=== PATIENT | female | born 1945 | race Caucasian/White ===

== ENCOUNTER 2017-12-13 11:20 | Emergency (ER) | payer MEDICARE, OTHER ==
[~2017-12-13] VITALS: Ht 167.6 cm; Wt 92.1 kg
[2017-12-13] MEDS ORDERED: METO25 (11:44)
[2017-12-13] MEDS ORDERED: ELIQUIS5 MG PO (11:44)
[2017-12-13] MEDS ORDERED: ATOR20 PO (11:44)
[2017-12-13] MEDS ORDERED: BASAGLAR K100 UNIT/1 SQ (12:07)
[2017-12-13] MEDS ORDERED: BASAGLAR K100 UNIT/1 SC (13:15)
[2017-12-13] MEDS ORDERED: FURO20 PO (13:15)
[2017-12-13] MEDS ORDERED: LISI20 PO (13:15)
== END 2017-12-13 13:44 | disposition home or self-care (01) ==
LOC: ER 11:20
DX: I50.9 Heart failure, unspecified (principal); I48.91 Unspecified atrial fibrillation; Z88.0 Allergy status to penicillin; Z88.2 Allergy status to sulfonamides; Z91.048 Other nonmedicinal substance allergy status; Z79.899 Other long term (current) drug therapy; Z79.4 Long term (current) use of insulin; M79.89 Other specified soft tissue disorders; Z86.718 Personal history of other venous thrombosis and embolism
CPT/HCPCS: 36415; 71046; 93005; 93010; 93971; 99284-25

== ENCOUNTER 2017-12-19 08:25 | Emergency (ER) | payer MEDICARE, OTHER ==
[~2017-12-19] VITALS: Ht 167.6 cm; Wt 92.1 kg
[~2017-12-19 08:25] MED LIST: ATOR20 PO; BASAGLAR K100 UNIT/1 SC; BASAGLAR K100 UNIT/1 SQ; ELIQUIS5 MG PO; FURO20 PO; LISI20 PO; METO25
[2017-12-19 09:31] LABS: Calcium, Ionized (POC) 1.17 mmol/L (1.10-1.46); Chloride (POC) 105 mmol/L (98-108); Creatinine (POC) 1.4 mg/dL (0.6-1.0); Glucose (ISTAT POC) 216 mg/dL (70-99); Hemoglobin (POC) 12.6 g/dL (12.0-16.0); Potassium (POC) 3.9 mmol/L (3.5-5.5); Sodium (POC) 143 mmol/L (135-148); Total CO2 (POC) 25 mmol/L (21-32)
[2017-12-19] MEDS ORDERED: BASAGLAR K100 UNIT/1 SC (09:45)
== END 2017-12-19 10:10 | disposition home or self-care (01) ==
LOC: ER 08:25
PROVIDERS: Physician Assistant
DX: Z76.0 Encounter for issue of repeat prescription (principal); Z79.4 Long term (current) use of insulin; Z79.899 Other long term (current) drug therapy
CPT/HCPCS: 80047; 82947; 85014; 99281

== ENCOUNTER 2017-12-21 09:47 | Emergency (ER) | payer MEDICARE, OTHER ==
[~2017-12-21] VITALS: Ht 167.6 cm; Wt 92.1 kg
[2017-12-21] MEDS ORDERED: IBUP600 PO (10:30)
== END 2017-12-21 11:02 | disposition home or self-care (01) ==
LOC: ER 09:47
DX: M25.562 Pain in left knee (principal); M25.561 Pain in right knee; G89.29 Other chronic pain; I48.2 Chronic atrial fibrillation; E11.9 Type 2 diabetes mellitus without complications; Z59.0 Homelessness; Z88.0 Allergy status to penicillin; Z88.2 Allergy status to sulfonamides; Z88.8 Allergy status to other drugs, medicaments and biological substances; Z79.899 Other long term (current) drug therapy; Z79.4 Long term (current) use of insulin
CPT/HCPCS: 93005; 93010; 96372; 99283-25; J1885

== ENCOUNTER 2018-01-02 09:13 | Emergency (ER) | payer MEDICARE, OTHER ==
[~2018-01-02] VITALS: Ht 167.6 cm; Wt 94.3 kg
[~2018-01-02 09:13] MED LIST changes: +IBUP600 PO
== END 2018-01-02 11:40 | disposition home or self-care (01) ==
LOC: ER 09:13
DX: M25.561 Pain in right knee (principal); M25.562 Pain in left knee; E11.9 Type 2 diabetes mellitus without complications; I48.91 Unspecified atrial fibrillation; Z88.0 Allergy status to penicillin; Z88.2 Allergy status to sulfonamides; Z88.8 Allergy status to other drugs, medicaments and biological substances; Z79.899 Other long term (current) drug therapy; Z79.4 Long term (current) use of insulin; W19.XXXA Unspecified fall, initial encounter
CPT/HCPCS: 73562-RT; 99283-25

== ENCOUNTER 2018-01-15 14:18 | Emergency (ER) | payer MEDICARE, OTHER ==
[~2018-01-15] VITALS: Ht 172.7 cm; Wt 91.6 kg
[~2018-01-15 14:18] MED LIST changes: -METO25; +METO25 PO
== END 2018-01-15 15:42 | disposition home or self-care (01) ==
LOC: ER 14:18
DX: S46.911A Strain of unspecified muscle, fascia and tendon at shoulder and upper arm level, right arm, initial encounter (principal); R51 Headache; I48.91 Unspecified atrial fibrillation; E11.9 Type 2 diabetes mellitus without complications; Z88.0 Allergy status to penicillin; Z88.2 Allergy status to sulfonamides; Z88.8 Allergy status to other drugs, medicaments and biological substances; Z79.899 Other long term (current) drug therapy; Z79.4 Long term (current) use of insulin; W19.XXXA Unspecified fall, initial encounter
CPT/HCPCS: 70450; 73030; 99284-25

== ENCOUNTER → 2018-01-17 | Outpatient (CLI) | payer MEDICARE, OTHER | LOC: LAB 09:40 → LAB SHORT 09:40 | DX: R35.0 Frequency of micturition (principal) | CPT/HCPCS: 87086 ==

== ENCOUNTER 2018-01-19 17:57 | Emergency (ER) | payer MEDICARE, OTHER ==
[~2018-01-19] VITALS: Ht 167.6 cm; Wt 91.6 kg
[2018-01-19 18:42] LABS: Hematocrit 39.4 % (33.0-51.0); Hemoglobin 12.8 g/dL (11.5-16.0); Mean Corpuscular HGB Conc 32.5 g/dL (31.5-36.5); Mean Corpuscular Volume 89 fL (80-100); Mean Platelet Volume 10.7 fL (9.1-12.4); Platelet Count 269 K/mm3 (150-400); RDW Coefficient Variation 14.3 % (11.7-14.2); RDW Standard Deviation 47.2 fL (35.1-46.3); Red Blood Cell Count 4.41 M/mm3 (3.80-5.20)
[2018-01-19 18:56] LABS: Bun/Creatinine Ratio 15.3 (12.0-20.0); Calcium, Blood 8.7 mg/dL (8.5-10.1); Creatinine, Blood 1.5 mg/dL (0.40-1.00); Potassium, Blood 4.2 mmol/L (3.5-5.5)
[2018-01-19 19:05] LABS: Calcium, Ionized (POC) 1.17 mmol/L (1.10-1.46); Chloride (POC) 104 mmol/L (98-108); Creatinine (POC) 1.5 mg/dL (0.6-1.0); Glucose (ISTAT POC) 160 mg/dL (70-99); Hemoglobin (POC) 13.6 g/dL (12.0-16.0); Potassium (POC) 4.1 mmol/L (3.5-5.5); Sodium (POC) 143 mmol/L (135-148); Total CO2 (POC) 25 mmol/L (21-32)
== END 2018-01-19 19:19 | disposition home or self-care (01) ==
LOC: ER 17:57
PROVIDERS: Emergency Medicine
DX: E11.65 Type 2 diabetes mellitus with hyperglycemia (principal); I10 Essential (primary) hypertension; Z91.14 Patient's other noncompliance with medication regimen; I48.91 Unspecified atrial fibrillation; Z86.73 Personal history of transient ischemic attack (TIA), and cerebral infarction without residual deficits; Z79.4 Long term (current) use of insulin; Z79.899 Other long term (current) drug therapy; Z79.01 Long term (current) use of anticoagulants
CPT/HCPCS: 36415; 80047; 80048; 85014; 85027; 96374; 99282-25; J0360

== ENCOUNTER 2018-02-01 09:02 | Emergency (ER) | payer MEDICARE, OTHER ==
[~2018-02-01] VITALS: Ht 165.1 cm; Wt 91.6 kg
[2018-02-01 10:25] LABS: BASOPHILS ABSOLUTE AUTO 0.09 K/mm3 (0.00-0.23); BASOPHILS PERCENT AUTO 1 % (0-2); EOSINOPHILS ABSOLUTE AUTO 0.48 K/mm3 (0.00-0.68); EOSINOPHILS PERCENT AUTO 4 % (0-6); Hematocrit 43.3 % (33.0-51.0); Hemoglobin 13.5 g/dL (11.5-16.0); IMMATURE GRAN ABSOLUTE AUTO 0.05 K/mm3 (0.00-0.10); IMMATURE GRAN PERCENT AUTO 0 % (0-1); LYMPHOCYTES ABSOLUTE AUTO 1.05 K/mm3 (0.84-5.20); LYMPHOCYTES PERCENT AUTO 8 % (21-46); MONOCYTES ABSOLUTE AUTO 0.85 K/mm3 (0.16-1.47); MONOCYTES PERCENT AUTO 6 % (4-13); Mean Corpuscular HGB 28.2 pg (26.0-34.0); Mean Corpuscular HGB Conc 31.2 g/dL (31.5-36.5); Mean Corpuscular Volume 90 fL (80-100); Mean Platelet Volume 10.5 fL (9.1-12.4); NEUTROPHILS ABSOLUTE AUTO 11.28 K/mm3 (1.96-9.15); NEUTROPHILS PERCENT AUTO 82 % (41-73); Platelet Count 266 K/mm3 (150-400); RDW Coefficient Variation 14.3 % (11.7-14.2); RDW Standard Deviation 47.5 fL (35.1-46.3); Red Blood Cell Count 4.79 M/mm3 (3.80-5.20)
[2018-02-01 10:40] LABS: International Normalized Ratio 0.99; Prothrombin Time Results 10.2 Sec (9.7-11.5)
[2018-02-01 10:47] LABS: Albumin, Blood 3.3 g/dL (3.4-5.0); Albumin/Globulin Ratio 0.8 (0.8-1.8); Bilirubin, Total 1.1 mg/dL (0.1-1.0); Bun/Creatinine Ratio 20.5 (12.0-20.0); Calcium, Blood 8.7 mg/dL (8.5-10.1); Creatinine, Blood 1.27 mg/dL (0.40-1.00); Globulin, Blood 3.9 g/dL (2.2-4.0); Total Protein, Blood 7.2 g/dL (6.4-8.2); Troponin I 0.025 ng/mL (0.000-0.040)
[2018-02-01 11:39] LABS: Source, Urine Clean Catch
[2018-02-01 11:55] LABS: Bilirubin, Urine Neg (Neg); Blood, Urine 1+ (Neg); Glucose Qualitative, Urine 1+ (Neg); Ketones, Urine Neg (Neg); Leukocyte Esterase, Urine Neg (Neg); Nitrite, Urine Neg (Neg); Protein, Urine 4+ (Neg); Specific Gravity, Urine 1.025 (1.003-1.022); Urobilinogen, Urine NORM (Normal)
[2018-02-01 12:10] LABS: Appearance, Urine Clear (Clear); Color, Urine Yellow (P-Yellow)
[2018-02-01 12:11] LABS: Bacteria Not Seen /hpf; Red Blood Cells, Urine 0-2 /hpf (0-2); Squamous Epithelial Cells Few /hpf (Few); White Blood Cells, Urine Not Seen /hpf (0-5)
[2018-02-01 12:54] LABS: Influenza A Negative (NEGATIVE); Influenza B Negative (NEGATIVE)
[2018-02-01] MEDS ORDERED: Aerochamber1 EACH INH (13:04)
[2018-02-01] MEDS ORDERED: ALBU90OI INH (13:04)
== END 2018-02-01 14:11 | disposition home or self-care (01) ==
LOC: ER 09:02
PROVIDERS: Emergency Medicine; Physician Assistant
DX: J20.9 Acute bronchitis, unspecified (principal); E11.9 Type 2 diabetes mellitus without complications; I48.91 Unspecified atrial fibrillation; Z79.899 Other long term (current) drug therapy; Z79.4 Long term (current) use of insulin; Z79.01 Long term (current) use of anticoagulants
CPT/HCPCS: 71045; 80053; 81001; 83605; 83880; 84145; 84484; 85025; 85610; 87804; 93005; 93010; 94640; 96361; 96374; 99284-25; J2405; J7030

== ENCOUNTER 2018-02-02 09:02 | Emergency (ER) | payer MEDICARE, OTHER ==
[~2018-02-02] VITALS: Ht 162.6 cm; Wt 91.6 kg
[~2018-02-02 09:02] MED LIST changes: +ALBU90OI INH; +Aerochamber1 EACH INH
== END 2018-02-02 11:04 | disposition home or self-care (01) ==
LOC: ER 09:02
DX: Z04.3 Encounter for examination and observation following other accident (principal); E11.9 Type 2 diabetes mellitus without complications; I48.91 Unspecified atrial fibrillation; I10 Essential (primary) hypertension; Z79.01 Long term (current) use of anticoagulants; Z88.0 Allergy status to penicillin; Z88.2 Allergy status to sulfonamides; Z91.09 Other allergy status, other than to drugs and biological substances; Z91.048 Other nonmedicinal substance allergy status; Z79.899 Other long term (current) drug therapy; Z79.4 Long term (current) use of insulin; Z79.51 Long term (current) use of inhaled steroids; Z86.73 Personal history of transient ischemic attack (TIA), and cerebral infarction without residual deficits; W18.30XA Fall on same level, unspecified, initial encounter
CPT/HCPCS: 70450; 94640; 99284-25

== ENCOUNTER 2018-03-07 07:38 | Observation (INO) | payer MEDICARE, OTHER ==
[~2018-03-07] VITALS: Ht 167.6 cm; Wt 91.2 kg
[~2018-03-07 07:38] MED LIST changes: +ACET325 PO; -BASAGLAR K100 UNIT/1 SQ; +Benadryl Itch28.3 G1 TOP; +DIPH50 PO; +DOXY100 PO; +HUMALOG KW200 UNIT/1 SC; +INSULANPEN SC; -METO25 PO; +METO50 PO; +MUPIROCIN1 GM TOP; +Pedi-Dri 100,0060 GM TOP; +SACC250C PO
[2018-03-07] MEDS ORDERED: MUPI1NAS TOP (09:55)
[2018-03-07] MEDS ORDERED: Humalog100 UNIT/1 (09:55)
[2018-03-07] MEDS ORDERED: SACC250C PO (09:56)
[2018-03-07] MEDS ORDERED: [UNRECOGNIZED DRUG - CODE] PO (13:55)
[2018-03-07] MEDS ORDERED: ELIQUIS5 MG PO (17:08)
[2018-03-07] MEDS ORDERED: ACET325 PO (17:10)
[2018-03-07] MEDS ORDERED: ALBU90OI INH (17:10)
[2018-03-07] MEDS ORDERED: ATOR20 PO (17:52)
[2018-03-07] MEDS ORDERED: Benadryl Itch28.3 G1 TOP (17:54)
[2018-03-07] MEDS ORDERED: BENADRYL25 MG PO (17:55)
[2018-03-07] MEDS ORDERED: DOXY100 PO (17:56)
[2018-03-07] MEDS ORDERED: LISI20 PO (17:57)
[2018-03-07] MEDS ORDERED: INSUGL100V SC (17:57)
[2018-03-07] MEDS ORDERED: METO50 PO (17:59)
[2018-03-07] MEDS ORDERED: Nyamyc15 GM TOP (18:00)
[2018-03-08 05:20] LABS: BASOPHILS ABSOLUTE AUTO 0.15 K/mm3 (0.00-0.23); BASOPHILS PERCENT AUTO 2 % (0-2); EOSINOPHILS ABSOLUTE AUTO 0.57 K/mm3 (0.00-0.68); EOSINOPHILS PERCENT AUTO 7 % (0-6); Hematocrit 37.7 % (33.0-51.0); Hemoglobin 11.6 g/dL (11.5-16.0); IMMATURE GRAN ABSOLUTE AUTO 0.04 K/mm3 (0.00-0.10); IMMATURE GRAN PERCENT AUTO 1 % (0-1); LYMPHOCYTES ABSOLUTE AUTO 1.59 K/mm3 (0.84-5.20); LYMPHOCYTES PERCENT AUTO 18 % (21-46); MONOCYTES ABSOLUTE AUTO 0.72 K/mm3 (0.16-1.47); MONOCYTES PERCENT AUTO 8 % (4-13); Mean Corpuscular HGB 28.4 pg (26.0-34.0); Mean Corpuscular HGB Conc 30.8 g/dL (31.5-36.5); Mean Corpuscular Volume 92 fL (80-100); Mean Platelet Volume 10.9 fL (9.1-12.4); NEUTROPHILS ABSOLUTE AUTO 5.56 K/mm3 (1.96-9.15); NEUTROPHILS PERCENT AUTO 65 % (41-73); Platelet Count 309 K/mm3 (150-400); RDW Coefficient Variation 14.7 % (11.7-14.2); RDW Standard Deviation 49.9 fL (35.1-46.3); Red Blood Cell Count 4.08 M/mm3 (3.80-5.20); White Blood Cell Count 8.63 K/mm3 (4.00-11.30)
[2018-03-08 05:49] LABS: Albumin, Blood 2.9 g/dL (3.4-5.0); Albumin/Globulin Ratio 0.7 (0.8-1.8); Bilirubin, Total 0.5 mg/dL (0.1-1.0); Bun/Creatinine Ratio 15.4 (12.0-20.0); Calcium, Blood 8.7 mg/dL (8.5-10.1); Creatinine, Blood 1.36 mg/dL (0.40-1.00); Globulin, Blood 4.1 g/dL (2.2-4.0)
[2018-03-10 11:21] LABS: BASOPHILS ABSOLUTE AUTO 0.14 K/mm3 (0.00-0.23); BASOPHILS PERCENT AUTO 2 % (0-2); EOSINOPHILS ABSOLUTE AUTO 0.28 K/mm3 (0.00-0.68); EOSINOPHILS PERCENT AUTO 3 % (0-6); Hematocrit 39.4 % (33.0-51.0); Hemoglobin 12.3 g/dL (11.5-16.0); IMMATURE GRAN ABSOLUTE AUTO 0.02 K/mm3 (0.00-0.10); IMMATURE GRAN PERCENT AUTO 0 % (0-1); LYMPHOCYTES ABSOLUTE AUTO 1.53 K/mm3 (0.84-5.20); LYMPHOCYTES PERCENT AUTO 18 % (21-46); MONOCYTES ABSOLUTE AUTO 0.71 K/mm3 (0.16-1.47); MONOCYTES PERCENT AUTO 8 % (4-13); Mean Corpuscular HGB 28.4 pg (26.0-34.0); Mean Corpuscular HGB Conc 31.2 g/dL (31.5-36.5); Mean Corpuscular Volume 91 fL (80-100); Mean Platelet Volume 10.3 fL (9.1-12.4); NEUTROPHILS ABSOLUTE AUTO 5.76 K/mm3 (1.96-9.15); NEUTROPHILS PERCENT AUTO 68 % (41-73); Platelet Count 298 K/mm3 (150-400); RDW Coefficient Variation 14.4 % (11.7-14.2); Red Blood Cell Count 4.33 M/mm3 (3.80-5.20); White Blood Cell Count 8.44 K/mm3 (4.00-11.30)
[2018-03-10 12:02] LABS: Bun/Creatinine Ratio 15.1 (12.0-20.0); Calcium, Blood 9.1 mg/dL (8.5-10.1); Creatinine, Blood 1.26 mg/dL (0.40-1.00); Potassium, Blood 4.4 mmol/L (3.5-5.5)
[2018-03-13] MEDS ORDERED: XARELTO15 MG PO (14:19)
== END 2018-03-13 14:55 | disposition home or self-care (01) ==
LOC: ER 07:38 → MEDS 07:39 → ENPENDDIS 03-13 12:00 → MEDS 03-13 14:55
PROVIDERS: Internal Medicine
DX: G93.40 Encephalopathy, unspecified (principal); A04.72 Enterocolitis due to Clostridium difficile, not specified as recurrent; R65.20 Severe sepsis without septic shock; I48.91 Unspecified atrial fibrillation; L03.116 Cellulitis of left lower limb; E11.22 Type 2 diabetes mellitus with diabetic chronic kidney disease; I12.9 Hypertensive chronic kidney disease with stage 1 through stage 4 chronic kidney disease, or unspecified chronic kidney disease; N18.3 Chronic kidney disease, stage 3 (moderate); B37.3 Candidiasis of vulva and vagina; F03.90 Unspecified dementia, unspecified severity, without behavioral disturbance, psychotic disturbance, mood disturbance, and anxiety; Z79.01 Long term (current) use of anticoagulants; Z87.891 Personal history of nicotine dependence; Z91.041 Radiographic dye allergy status; Z88.0 Allergy status to penicillin; Z88.2 Allergy status to sulfonamides; Z88.8 Allergy status to other drugs, medicaments and biological substances
CPT/HCPCS: 36415; 80048; 80053; 82947; 85025; 99285; G0378

== ENCOUNTER 2018-05-08 05:55 | Emergency (ER) | payer MEDICARE, OTHER ==
[~2018-05-08] VITALS: Ht 167.6 cm; Wt 81.7 kg
[~2018-05-08 05:55] MED LIST changes: +BENADRYL25 MG PO; +Humalog100 UNIT/1; +INSUGL100V SC; +MUPI1NAS TOP; +Nyamyc15 GM TOP; +XARELTO15 MG PO; +[UNRECOGNIZED DRUG - CODE] PO
[2018-05-08] MEDS ORDERED: IBUP800 PO (09:13)
[2018-05-08] MEDS ORDERED: Zofran4 MG PO (09:13)
[2018-05-08] MEDS ORDERED: Norco 5-325 Ta1 EACH PO (09:13)
== END 2018-05-08 11:20 | disposition home or self-care (01) ==
LOC: ER 05:55
DX: S82.61XA Displaced fracture of lateral malleolus of right fibula, initial encounter for closed fracture (principal); E11.9 Type 2 diabetes mellitus without complications; Z88.0 Allergy status to penicillin; Z88.2 Allergy status to sulfonamides; Z79.899 Other long term (current) drug therapy; Z79.4 Long term (current) use of insulin; W18.30XA Fall on same level, unspecified, initial encounter
CPT/HCPCS: 29505; 73562-RT; 73610; 96372; 99283-25; J2405; J3010

== ENCOUNTER 2018-05-15 20:04 | Emergency (ER) | payer MEDICARE, OTHER ==
[~2018-05-15] VITALS: Ht 167.6 cm; Wt 81.7 kg
[~2018-05-15 20:04] MED LIST changes: +IBUP800 PO; +Norco 5-325 Ta1 EACH PO; +Zofran4 MG PO
[2018-05-16] MEDS ORDERED: LIDO700A20 TOP (22:51)
[2018-05-16] MEDS ORDERED: ONDA4ODT MM (22:51)
[2018-05-16] MEDS ORDERED: Humalog100 UNIT/3 SC (23:18)
[2018-05-16] MEDS ORDERED: INSULANPEN SC (23:18)
== END 2018-05-15 21:59 | disposition home or self-care (01) ==
LOC: ER 20:04
DX: S09.90XA Unspecified injury of head, initial encounter (principal); S80.01XA Contusion of right knee, initial encounter; W01.198A Fall on same level from slipping, tripping and stumbling with subsequent striking against other object, initial encounter; E11.9 Type 2 diabetes mellitus without complications; I48.91 Unspecified atrial fibrillation; Z87.891 Personal history of nicotine dependence; Z59.0 Homelessness; Z79.899 Other long term (current) drug therapy; Z79.4 Long term (current) use of insulin
CPT/HCPCS: 73562-RT; 99283-25

== ENCOUNTER 2018-05-16 17:23 | Emergency (ER) | payer MEDICARE, OTHER ==
[~2018-05-16] VITALS: Ht 167.6 cm; Wt 81.7 kg
[2018-05-16 18:53] LABS: BASOPHILS ABSOLUTE AUTO 0.09 K/mm3 (0.00-0.23); BASOPHILS PERCENT AUTO 1 % (0-2); EOSINOPHILS ABSOLUTE AUTO 0.27 K/mm3 (0.00-0.68); EOSINOPHILS PERCENT AUTO 2 % (0-6); Hematocrit 46.5 % (33.0-51.0); Hemoglobin 14.9 g/dL (11.5-16.0); IMMATURE GRAN ABSOLUTE AUTO 0.04 K/mm3 (0.00-0.10); IMMATURE GRAN PERCENT AUTO 0 % (0-1); LYMPHOCYTES ABSOLUTE AUTO 1.99 K/mm3 (0.84-5.20); LYMPHOCYTES PERCENT AUTO 17 % (21-46); MONOCYTES ABSOLUTE AUTO 0.76 K/mm3 (0.16-1.47); MONOCYTES PERCENT AUTO 7 % (4-13); Mean Corpuscular HGB 28.1 pg (26.0-34.0); Mean Corpuscular Volume 88 fL (80-100); NEUTROPHILS ABSOLUTE AUTO 8.51 K/mm3 (1.96-9.15); NEUTROPHILS PERCENT AUTO 73 % (41-73); Platelet Count 361 K/mm3 (150-400); RDW Coefficient Variation 14.9 % (11.7-14.2); RDW Standard Deviation 47.9 fL (35.1-46.3); White Blood Cell Count 11.66 K/mm3 (4.00-11.30)
[2018-05-16 19:11] LABS: Albumin, Blood 3.5 g/dL (3.4-5.0); Albumin/Globulin Ratio 0.7 (0.8-1.8); Bilirubin, Total 1.1 mg/dL (0.1-1.0); Bun/Creatinine Ratio 17.6 (12.0-20.0); Calcium, Blood 9.5 mg/dL (8.5-10.1); Creatinine, Blood 1.31 mg/dL (0.40-1.00); Potassium, Blood 3.1 mmol/L (3.5-5.5); Total Protein, Blood 8.5 g/dL (6.4-8.2)
[2018-05-16 21:15] LABS: Adenovirus F 40/41 Not Detected (NOT DETECT); Astrovirus Not Detected (NOT DETECT); Campylobacter Sp Not Detected (NOT DETECT); Cryptosporidium Not Detected (NOT DETECT); Cyclospora Cayetanensis Not Detected (NOT DETECT); E. Coli O157 Not Detected (NOT DETECT); Entamoeba Histolytica Not Detected (NOT DETECT); Enteroaggregative E. coli-EAEC Not Detected (NOT DETECT); Enteropathogenic E. coli-EPEC Not Detected (NOT DETECT); Enterotoxigenic E. coli-ETEC Not Detected (NOT DETECT); Giardia Lamblia Not Detected (NOT DETECT); Norovirus GI/GII Not Detected (NOT DETECT); Plesiomonas Shigelloides Not Detected (NOT DETECT); Rotavirus A Not Detected (NOT DETECT); Salmonella Sp Not Detected (NOT DETECT); Sapovirus Not Detected (NOT DETECT); Shiga Toxin-prod E. coli-STEC Not Detected (NOT DETECT); Shigella/Enteroin E. coli-EIEC Not Detected (NOT DETECT); Vibrio Cholerae Not Detected (NOT DETECT); Vibrio Sp Not Detected (NOT DETECT); Yersinia Enterocolitica Not Detected (NOT DETECT)
[2018-05-16] MEDS ORDERED: ONDA4ODT MM (22:51)
[2018-05-16] MEDS ORDERED: LIDO700A20 TOP (22:51)
[2018-05-16] MEDS ORDERED: Humalog100 UNIT/3 SC (23:18)
[2018-05-16] MEDS ORDERED: INSULANPEN SC (23:18)
[2018-05-17] MEDS ORDERED: LOPE2C PO (18:00)
== END 2018-05-16 23:16 | disposition home or self-care (01) ==
LOC: ER 17:23
PROVIDERS: Physician Assistant
DX: K52.9 Noninfective gastroenteritis and colitis, unspecified (principal); M17.11 Unilateral primary osteoarthritis, right knee; E11.9 Type 2 diabetes mellitus without complications; I48.91 Unspecified atrial fibrillation; Z88.0 Allergy status to penicillin; Z88.1 Allergy status to other antibiotic agents; Z91.041 Radiographic dye allergy status; Z79.4 Long term (current) use of insulin; Z79.899 Other long term (current) drug therapy; Z86.73 Personal history of transient ischemic attack (TIA), and cerebral infarction without residual deficits
CPT/HCPCS: 36415; 73560-RT; 80053; 83690; 85025; 87507; 99284-25

== ENCOUNTER 2018-05-17 11:32 | Emergency (ER) | payer MEDICARE, OTHER ==
[~2018-05-17] VITALS: Ht 167.6 cm; Wt 81.7 kg
[~2018-05-17 11:32] MED LIST changes: +Humalog100 UNIT/3 SC; +LIDO700A20 TOP; +ONDA4ODT MM
[2018-05-17 14:11] LABS: BASOPHILS ABSOLUTE AUTO 0.08 K/mm3 (0.00-0.23); BASOPHILS PERCENT AUTO 1 % (0-2); EOSINOPHILS ABSOLUTE AUTO 0.18 K/mm3 (0.00-0.68); EOSINOPHILS PERCENT AUTO 2 % (0-6); Hematocrit 44.6 % (33.0-51.0); Hemoglobin 14.3 g/dL (11.5-16.0); IMMATURE GRAN ABSOLUTE AUTO 0.05 K/mm3 (0.00-0.10); IMMATURE GRAN PERCENT AUTO 0 % (0-1); LYMPHOCYTES ABSOLUTE AUTO 1.94 K/mm3 (0.84-5.20); LYMPHOCYTES PERCENT AUTO 17 % (21-46); MONOCYTES ABSOLUTE AUTO 0.67 K/mm3 (0.16-1.47); MONOCYTES PERCENT AUTO 6 % (4-13); Mean Corpuscular HGB 28.2 pg (26.0-34.0); Mean Corpuscular HGB Conc 32.1 g/dL (31.5-36.5); Mean Corpuscular Volume 88 fL (80-100); Mean Platelet Volume 9.9 fL (9.1-12.4); NEUTROPHILS ABSOLUTE AUTO 8.33 K/mm3 (1.96-9.15); NEUTROPHILS PERCENT AUTO 74 % (41-73); Platelet Count 349 K/mm3 (150-400); RDW Coefficient Variation 14.8 % (11.7-14.2); RDW Standard Deviation 47.8 fL (35.1-46.3); Red Blood Cell Count 5.07 M/mm3 (3.80-5.20); White Blood Cell Count 11.25 K/mm3 (4.00-11.30)
[2018-05-17 14:27] LABS: Albumin, Blood 3.2 g/dL (3.4-5.0); Albumin/Globulin Ratio 0.7 (0.8-1.8); Bilirubin, Total 0.8 mg/dL (0.1-1.0); Bun/Creatinine Ratio 16.2 (12.0-20.0); Calcium, Blood 8.8 mg/dL (8.5-10.1); Creatinine, Blood 1.3 mg/dL (0.40-1.00); Globulin, Blood 4.5 g/dL (2.2-4.0); Potassium, Blood 3.5 mmol/L (3.5-5.5); Total Protein, Blood 7.7 g/dL (6.4-8.2); Troponin I 0.027 ng/mL (0.000-0.040)
[2018-05-17] MEDS ORDERED: LOPE2C PO (18:00)
== END 2018-05-17 18:10 | disposition home or self-care (01) ==
LOC: ER 11:32
PROVIDERS: Physician Assistant
DX: R19.7 Diarrhea, unspecified (principal); R60.0 Localized edema; Z59.0 Homelessness; Z88.0 Allergy status to penicillin; Z88.2 Allergy status to sulfonamides; Z88.8 Allergy status to other drugs, medicaments and biological substances; Z79.899 Other long term (current) drug therapy; Z79.84 Long term (current) use of oral hypoglycemic drugs; E11.9 Type 2 diabetes mellitus without complications; I48.91 Unspecified atrial fibrillation; Z86.73 Personal history of transient ischemic attack (TIA), and cerebral infarction without residual deficits
CPT/HCPCS: 36415; 71046; 80053; 82947; 84484; 85025; 93005; 93010; 99284-25

== ENCOUNTER 2018-05-19 09:48 | Emergency (ER) | payer MEDICARE, OTHER ==
[~2018-05-19] VITALS: Ht 167.6 cm; Wt 81.7 kg
[~2018-05-19 09:48] MED LIST changes: +LOPE2C PO
== END 2018-05-19 14:50 | disposition home or self-care (01) ==
LOC: ER 09:48
DX: S82.401D Unspecified fracture of shaft of right fibula, subsequent encounter for closed fracture with routine healing (principal); F41.9 Anxiety disorder, unspecified; F32.9 Major depressive disorder, single episode, unspecified; X58.XXXD Exposure to other specified factors, subsequent encounter; Z79.899 Other long term (current) drug therapy; Z88.0 Allergy status to penicillin
CPT/HCPCS: 82947; 99283

== ENCOUNTER 2018-08-29 18:22 | Inpatient (IN) | payer MEDICARE, OTHER ==
[~2018-08-29] VITALS: Ht 160 cm; Wt 87.8 kg
[2018-08-29 19:18] LABS: Source, Urine Clean Catch
[2018-08-29 19:21] LABS: BASOPHILS PERCENT AUTO 0 % (0-2); EOSINOPHILS ABSOLUTE AUTO 0.01 K/mm3 (0.00-0.68); EOSINOPHILS PERCENT AUTO 0 % (0-6); Hematocrit 49.5 % (33.0-51.0); Hemoglobin 15.8 g/dL (11.5-16.0); IMMATURE GRAN ABSOLUTE AUTO 0.12 K/mm3 (0.00-0.10); IMMATURE GRAN PERCENT AUTO 1 % (0-1); LYMPHOCYTES ABSOLUTE AUTO 0.53 K/mm3 (0.84-5.20); LYMPHOCYTES PERCENT AUTO 2 % (21-46); MONOCYTES ABSOLUTE AUTO 0.95 K/mm3 (0.16-1.47); MONOCYTES PERCENT AUTO 4 % (4-13); Mean Corpuscular HGB 28.3 pg (26.0-34.0); Mean Corpuscular HGB Conc 31.9 g/dL (31.5-36.5); Mean Corpuscular Volume 89 fL (80-100); Mean Platelet Volume 10.4 fL (9.1-12.4); NEUTROPHILS ABSOLUTE AUTO 21.07 K/mm3 (1.96-9.15); NEUTROPHILS PERCENT AUTO 93 % (41-73); Platelet Count 272 K/mm3 (150-400); RDW Coefficient Variation 15.2 % (11.7-14.2); Red Blood Cell Count 5.58 M/mm3 (3.80-5.20); White Blood Cell Count 22.78 K/mm3 (4.00-11.30)
[2018-08-29 19:22] LABS: Bilirubin, Urine Neg (Neg); Blood, Urine 4+ (Neg); Glucose Qualitative, Urine Neg (Neg); Ketones, Urine Neg (Neg); Leukocyte Esterase, Urine 1+ (Neg); Nitrite, Urine Pos (Neg); Protein, Urine 4+ (Neg); Specific Gravity, Urine 1.015 (1.003-1.022); Urobilinogen, Urine NORM (Normal)
[2018-08-29 19:36] LABS: Appearance, Urine Hazy (Clear); Color, Urine Yellow (P-Yellow)
[2018-08-29 19:37] LABS: Albumin, Blood 3.2 g/dL (3.4-5.0); Albumin/Globulin Ratio 0.7 (0.8-1.8); Bilirubin, Total 1.2 mg/dL (0.1-1.0); Bun/Creatinine Ratio 16.9 (12.0-20.0); Calcium, Blood 8.9 mg/dL (8.5-10.1); Creatinine, Blood 1.3 mg/dL (0.40-1.00); Globulin, Blood 4.7 g/dL (2.2-4.0); Potassium, Blood 3.8 mmol/L (3.5-5.5); Total Protein, Blood 7.9 g/dL (6.4-8.2)
[2018-08-29 19:40] LABS: White Blood Cells, Urine 25-50 /hpf (0-5)
[2018-08-29 19:41] LABS: Bacteria Many /hpf; Squamous Epithelial Cells Few /hpf (Few)
[2018-08-29 19:42] LABS: U Amphetamine Screen Not Detected; U Barbituate Screen Not Detected; U Benzodiazapine Screen Not Detected; U Buprenorphine Screen Not Detected; U Cannabinoids Screen Not Detected; U Cocaine Screen Not Detected; U Methadone Screen Not Detected; U Methamphetamine Screen Not Detected; U Opiates Screen Not Detected; U Oxycodone Screen Not Detected; U Phencyclidine Screen Not Detected; U Propoxyphene Screen Not Detected
[2018-08-29] MEDS ORDERED: ELIQUIS5 MG PO (21:19)
[2018-08-29] MEDS ORDERED: FURO20 PO (21:19)
[2018-08-29] MEDS ORDERED: ONDA4ODT MM (21:21)
[2018-08-30 05:21] LABS: Hematocrit 44.4 % (33.0-51.0); Hemoglobin 14.3 g/dL (11.5-16.0); Mean Corpuscular HGB 28.1 pg (26.0-34.0); Mean Corpuscular HGB Conc 32.2 g/dL (31.5-36.5); Mean Corpuscular Volume 87 fL (80-100); Mean Platelet Volume 10.3 fL (9.1-12.4); NRBC ABSOLUTE 0.02 K/mm3 (0.00-0.02); NRBC Auto 0.1 /100 WBC (0.0-0.2); Platelet Count 252 K/mm3 (150-400); RDW Coefficient Variation 15.2 % (11.7-14.2); RDW Standard Deviation 47.9 fL (35.1-46.3); Red Blood Cell Count 5.08 M/mm3 (3.80-5.20)
[2018-08-30 06:01] LABS: Albumin, Blood 2.8 g/dL (3.4-5.0); Albumin/Globulin Ratio 0.7 (0.8-1.8); Bilirubin, Total 1.6 mg/dL (0.1-1.0); Bun/Creatinine Ratio 15.8 (12.0-20.0); Calcium, Blood 8.8 mg/dL (8.5-10.1); Creatinine, Blood 1.65 mg/dL (0.40-1.00); Globulin, Blood 4.2 g/dL (2.2-4.0); Potassium, Blood 3.7 mmol/L (3.5-5.5)
--- NOTE | 2018-08-30 16:27 | NUR ---
PT ARRIVED TO UNIT FROM ER AT APROX 1430. PT HAS HX DEMENTIA AND HAS MOMENTS OF CONFUSION. ALERT, ORIENTED TO SELF AND PLACE-UNSURE OF WHY SHE IS IN HOSPITAL THIS TIME AND HAS TO BE RE-DIRECTED OFTEN. BED ALARM PLACED. 02 SAT 94% ON 2L, LUNGS W/RHONCHI T/O.
--- NOTE | 2018-08-30 17:56 | NUR ---
SHIFT SUMMARY PT CONTINUES TO HAVE CONFUSION-BASELINE HX OF DEMENTIA. BED ALARM IN PLACE. PT ORIENTED TO SELF, UNSURE OF YEAR/PLACE/SITUATION. LUNGS WITH RHONCHI T/O, PRODUCTIVE COUGH W/THICK WHITE SPUTUM. O2 SAT >92% ON 2L VIA NC. PLAN IS TO CONTINUE WITH IV ABX FOR UTI.
--- NOTE | 2018-08-31 01:56 | NUR ---
4 SECOND CARDIAC PAUSE 0147 STOCK CLERK SELF SERVICE STORE NOTED 4 SECOND PAUSE, AFIB BASELINE; PT WOKE EASILY ON ASSESSMENT; PT DENIED CP, NAUSEA AND SOB. 1.5L O2 VIA NC. VSS. NO ACUTE CHANGES NOTED. WATER RESOURCES PROJECT MANAGERGloria NOTIFIED. WCTM PT UNTIL REPORT TO DAY SHIFT RN.
[2018-08-31 04:11] LABS: BASOPHILS PERCENT AUTO 1 % (0-2); EOSINOPHILS ABSOLUTE AUTO 0.38 K/mm3 (0.00-0.68); EOSINOPHILS PERCENT AUTO 3 % (0-6); Hematocrit 44.3 % (33.0-51.0); Hemoglobin 13.9 g/dL (11.5-16.0); IMMATURE GRAN ABSOLUTE AUTO 0.03 K/mm3 (0.00-0.10); IMMATURE GRAN PERCENT AUTO 0 % (0-1); LYMPHOCYTES ABSOLUTE AUTO 1.35 K/mm3 (0.84-5.20); LYMPHOCYTES PERCENT AUTO 12 % (21-46); MONOCYTES PERCENT AUTO 9 % (4-13); Mean Corpuscular HGB 28.5 pg (26.0-34.0); Mean Corpuscular HGB Conc 31.4 g/dL (31.5-36.5); Mean Platelet Volume 10.5 fL (9.1-12.4); NEUTROPHILS ABSOLUTE AUTO 8.33 K/mm3 (1.96-9.15); NEUTROPHILS PERCENT AUTO 74 % (41-73); Platelet Count 220 K/mm3 (150-400); RDW Coefficient Variation 15.5 % (11.7-14.2); RDW Standard Deviation 51.5 fL (35.1-46.3); Red Blood Cell Count 4.87 M/mm3 (3.80-5.20); White Blood Cell Count 11.19 K/mm3 (4.00-11.30)
[2018-08-31 04:12] LABS: Mean Corpuscular Volume 91 fL (80-100)
[2018-08-31 04:34] LABS: Albumin, Blood 2.5 g/dL (3.4-5.0); Albumin/Globulin Ratio 0.6 (0.8-1.8); Bilirubin, Total 1.2 mg/dL (0.1-1.0); Bun/Creatinine Ratio 19.2 (12.0-20.0); Calcium, Blood 8.7 mg/dL (8.5-10.1); Creatinine, Blood 1.51 mg/dL (0.40-1.00); Globulin, Blood 4.1 g/dL (2.2-4.0); Potassium, Blood 3.8 mmol/L (3.5-5.5); Total Protein, Blood 6.6 g/dL (6.4-8.2)
[2018-08-31 04:37] LABS: Thyroid Stimulating Hormone 1.33 uIU/mL (0.360-4.800)
--- NOTE | 2018-08-31 07:47 | NUR ---
SHIFT SUMMARY PT ALERT, ORIENTED TO SELF; ORIENTATION INCREASED OVER SHIFT. THIS AM, PT ABLE TO RECALL PRIOR HOSPITALIZATION, FOLLOWING DIRECTION AND COOPERTIVE WITH CARE. SEE NOT REGARDING CARDICA PAUSE. PT WEANED TO 1.5L O2 VIA NC. TELEMETRY IN PLACE; A FIB PER TEST INSPECTION ENGINEER. BLOOD GLUCOSE MANAGED PER EMAR. PT REPOSITIONED SELF IN BED. INCONT. OF URINE. SIDE RAILS X3 AND BED ALARM FOR SAFETY.
--- NOTE | 2018-08-31 13:35 | NUR ---
transfer rm [id number] Pt to transfer via w/c to rm [id number]. Report called to Martin TRIMBLE. Continue pot.
--- NOTE | 2018-08-31 14:49 | NUR ---
PATIENT TRANSFER THE PATIENT WAS TRANSFERRED TO THE MEDICAL FLOOR FROM PCU #[id number], AFTER REPORT WAS CALLED FROM NURSE NELSON. THE PATIENT ARRIVED ON THE FLOOR IN A WHEELCHAIR. THE PATIENT IS A&O TO SELF AND SOME SURROUNDINGS, LUNG SOUNGS WERE CLEAR, BUT DIMINISHED IN THE BASES, VITALS WERE WNL. THE PATIENT IS RESTING AT THIS TIME, WILL CONTINUE TO MONITOR.
--- NOTE | 2018-09-01 05:55 | NUR ---
*SHIFT SUMMARY* PT IS ALERT TO SELF AND PLACE. PATIENT SLEPT WELL THROUGHOUT THE NIGHT. NO NEW CHANGES. VITAL SIGNS STABLE. CALL LIGHT IN REACH. PT WAS INCONTINENT, COMPLETE BED CHANGE DONE. MEPLIX PLACED ON LEFT ELBOW,
--- NOTE | 2018-09-01 17:29 | NUR ---
Spiritual Care Initial visit: Sherlyn was welcoming and talkative. She is also confused. I am not sure if much of what she told me was accurate. She said she felt "pretty good for somone in her 80s." (she's 73) She also told me she had [facility] untill she recently started renting a room in "someone's house." She complained about the rent and lack of decent food. It sounded to me like foster care. She stated she is bewildered how she could have a UTI since she just spent "3 weeks in this hospital for a UTI." She denied having any family left and tells me she lost most of her friends. She responded well to theraputic listening and emotional affirmation. She is Caodaism but not active. She allowed me to pray for her at conclusion of visit. We had an easy rapport and I will remain available.
--- NOTE | 2018-09-02 05:40 | NUR ---
*SHIFT SUMMARY* PATIENT IS ALERT WITH SOME CONFUSION. PT IS INCONTINENT AT NIGHT. SLEPT THROUGHOUT THE NIGHT. NO COMPLAINTS OF PAIN. NO NEW CHANGES. VITAL SIGNS STABLE.
--- NOTE | 2018-09-02 16:28 | NUR ---
NO ACUTE CHANGES THIS SHIFT. SPLITTING MACHINE TENDER SAW PATIENT TODAY. NO COMPLAINTS OF PAIN,SOB , NV.
--- NOTE | 2018-09-03 06:19 | NUR ---
*SHIFT SUMMARY* PT IS ALERT WITH SOME CONFUSION. PATIENT SLEPT DURING SHIFT. NO CHAGNES THROUGHOUT THE NIGHT. VITALS STABLE. NEW IV STARTED.
[2018-09-03] MEDS ORDERED: INSULANPEN SC (12:40)
[2018-09-03] MEDS ORDERED: MEROPENEM1 GM IV (12:45)
--- NOTE | 2018-09-03 15:04 | NUR ---
RN CALLED CLOVER TO GIVE REPORT TO NURSE. PT IS CONFUSED. SHE HAD A BM TODAY. SHE AMBULATES TO THE RESTROOM WITH 1PA, GAIT BELT AND FWW. SHE H A POWERGLIDE PLACED THIS AFTERNOON. PT IS COOPERATIVE WITH CARE. NO COMPLAINTS OF PAIN. WILL CONTINUE TO MONITOR UNTIL RIDE IS HERE.
--- NOTE | 2018-09-03 15:32 | NUR ---
Pt. is lying in bed resting and watching the T V pt. is doing much better prayed for her
--- NOTE | 2018-09-03 15:41 | NUR ---
PT DISCHARGED TO [facility] T [id number]
== END 2018-09-03 15:36 | DRG 871 ==
LOC: ER 18:22 → ERHOLD 22:04 → PCU 08-30 14:58 → MEDS 08-31 13:52 → ENPENDDIS 09-03 12:36 → MEDS 09-03 15:36
PROVIDERS: Emergency Medicine; Internal Medicine; ADMIT Internal Medicine
DX: A41.9 Sepsis, unspecified organism (principal); G92 Toxic encephalopathy; N39.0 Urinary tract infection, site not specified; R65.20 Severe sepsis without septic shock; I48.91 Unspecified atrial fibrillation; I12.9 Hypertensive chronic kidney disease with stage 1 through stage 4 chronic kidney disease, or unspecified chronic kidney disease; E11.22 Type 2 diabetes mellitus with diabetic chronic kidney disease; N18.3 Chronic kidney disease, stage 3 (moderate); Z79.4 Long term (current) use of insulin; Z86.73 Personal history of transient ischemic attack (TIA), and cerebral infarction without residual deficits; F01.50 Vascular dementia, unspecified severity, without behavioral disturbance, psychotic disturbance, mood disturbance, and anxiety
CPT/HCPCS: 36415; 70450; 71046; 80053; 81001; 82947; 83605; 83880; 84443; 85025; 85027; 87040; 87077; 87086; 87186; 93005; 93010; 96361; 96374; 96376; 97110; 97162; 97166; 97530; 97535; 99285-25; G0480; G0515; J2185; J7030; J7050; P9612

== ENCOUNTER 2018-10-20 19:02 | Inpatient (IN) | payer MEDICARE, OTHER ==
[~2018-10-20] VITALS: Ht 170.2 cm; Wt 86.7 kg
[~2018-10-20 19:02] MED LIST changes: +MEROPENEM1 GM IV
[2018-10-20 20:07] LABS: BASOPHILS ABSOLUTE AUTO 0.07 K/mm3 (0.00-0.23); BASOPHILS PERCENT AUTO 1 % (0-2); EOSINOPHILS PERCENT AUTO 2 % (0-6); Hematocrit 47.8 % (33.0-51.0); Hemoglobin 15.6 g/dL (11.5-16.0); IMMATURE GRAN ABSOLUTE AUTO 0.05 K/mm3 (0.00-0.10); IMMATURE GRAN PERCENT AUTO 1 % (0-1); LYMPHOCYTES ABSOLUTE AUTO 1.89 K/mm3 (0.84-5.20); LYMPHOCYTES PERCENT AUTO 17 % (21-46); MONOCYTES ABSOLUTE AUTO 0.92 K/mm3 (0.16-1.47); MONOCYTES PERCENT AUTO 8 % (4-13); Mean Corpuscular HGB 29.1 pg (26.0-34.0); Mean Corpuscular HGB Conc 32.6 g/dL (31.5-36.5); Mean Corpuscular Volume 89 fL (80-100); Mean Platelet Volume 10.8 fL (9.1-12.4); NEUTROPHILS ABSOLUTE AUTO 7.97 K/mm3 (1.96-9.15); NEUTROPHILS PERCENT AUTO 72 % (41-73); Platelet Count 239 K/mm3 (150-400); RDW Coefficient Variation 15.1 % (11.7-14.2); RDW Standard Deviation 48.8 fL (35.1-46.3); Red Blood Cell Count 5.36 M/mm3 (3.80-5.20)
[2018-10-20 20:25] LABS: International Normalized Ratio 0.97; Prothrombin Time Results 10.3 Sec (9.7-11.5)
[2018-10-20 20:32] LABS: Albumin, Blood 3.1 g/dL (3.4-5.0); Albumin/Globulin Ratio 0.8 (0.8-1.8); Bilirubin, Total 0.9 mg/dL (0.1-1.0); Bun/Creatinine Ratio 15.5 (12.0-20.0); Calcium, Blood 9.1 mg/dL (8.5-10.1); Creatinine, Blood 1.42 mg/dL (0.40-1.00); Globulin, Blood 4.1 g/dL (2.2-4.0); Potassium, Blood 3.5 mmol/L (3.5-5.5); Total Protein, Blood 7.2 g/dL (6.4-8.2)
--- NOTE | 2018-10-21 05:23 | NUR ---
SAT ACT INSTRUCTOR SUMMARY: NEW ADMIT THAT ARRIVED TO THE FLOOR VIA STRETCHER AT 2250 INTO ROOM 349. DX OF CVA WITH LT SIDED WEAKNESS, LT FACIAL DROOPING, AND DROOLING. PT WITH SLURRED SPEECH MAKING IT HARD TO COMMUNICATE. ADMISSION ASSESSMENT COMPLETED TO THE BEST OF ABILITY PT. HAVING DIFFICULTY SPEAKING WITH SLIGHT LETHARGY. NO FAMILY AT BEDSIDE. HEPARIN DRIP STARTED THIS EVENING ALONG WITH 1X BAG OF NS. SUCTION PLACED AT THE BEDSIDE, IS NPO. ON TELEMETRY WITH RHYTHM/HR OF AFIB 86. CONTINOUS PULSE OXIMETRY APPLIED BY RT AND SCD'S PLACED ON BILATERAL CALVES PER ORDER. PT. ASLEEP MOST OF THE SHIFT, NO APPARENT DISTRESS NOTED. CALL LIGHT WITHIN REACH AND SIDE RAILS UP X3. WILL CONT TO MONITOR.
[2018-10-21 06:29] LABS: Hemoglobin 14.8 g/dL (11.5-16.0); Mean Corpuscular HGB 29.8 pg (26.0-34.0); Mean Corpuscular HGB Conc 33.6 g/dL (31.5-36.5); Mean Corpuscular Volume 89 fL (80-100); Platelet Count 236 K/mm3 (150-400); RDW Coefficient Variation 14.8 % (11.7-14.2); RDW Standard Deviation 48.1 fL (35.1-46.3); Red Blood Cell Count 4.97 M/mm3 (3.80-5.20); White Blood Cell Count 9.44 K/mm3 (4.00-11.30)
[2018-10-21 06:46] LABS: Anion Gap 6 mmol/L (6-16); Blood Urea Nitrogen 19 mg/dL (8-24); Bun/Creatinine Ratio 15.3 (12.0-20.0); CHOL/HDL RATIO 5.5; CO2, Blood 26 mmol/L (21-32); Calcium, Blood 8.7 mg/dL (8.5-10.1); Chloride, Blood 114 mmol/L (98-108); Cholesterol 165 mg/dL (50-200); Creatinine, Blood 1.24 mg/dL (0.40-1.00); Glomerular Filtration Rate 45 (60-); Glucose, Blood 163 mg/dL (70-99); HDL Cholesterol 30 mg/dL (>39); LDL/HDL RATIO 3.3; Low Density Lipoprotein Chol 99 mg/dL (0-110); Magnesium, Blood 2.1 mg/dL (1.6-2.4); Potassium, Blood 3.4 mmol/L (3.5-5.5); Sodium, Blood 146 mmol/L (136-145); Triglycerides 178 mg/dL (30-160); Very Low Density Lipoprot Chol 35 mg/dL (6-32)
--- NOTE | 2018-10-21 07:15 | NUR ---
INITIAL ASSESSMENT. PATIENT RESTING IN BED. OPENS HER EYES WHEN CUED VERBALLY. ATTEMPTS TO ANSWER QUESTIONS. SPEECH IS GARBLED AND DIFFICULT TO UNDERSTAND. ALERT AND ORIENTED TO PERSON AND REASON FOR ADMISSION. LEFT SIDED FACIAL DROOP. SUCTION IS SET UP IN THE ROOM. HEPARIN DOSAGE INCREASED PER ORDERS. SEE EMAR.
--- NOTE | 2018-10-21 13:37 | NUR ---
CLEAN CATCH URINE SAMPLE PATIENT INCONTINENT. UNABLE TO OBTAIN A CLEAN CATCH SPECIMAN TO CLEAR PATIENT OF ISOLATION. WILL CONTINUE TO MONITOR FOR PATIENT IMPROVEMENT AND ABILITY TO OBTAIN A CLEAN CATCH.
--- NOTE | 2018-10-21 18:35 | NUR ---
END OF SHIFT SUMMARY: PATIENT CALM AND COOPERATIVE THROUGHOUT SHIFT. PATIENT IMPROVED IN HER NEUROLOGICAL STATUS. FOR EXAMPLE, BY THE END OF THE SHIFT SHE WAS ABLE TO LIFT HER LEFT ARM ALMOST EQUAL TO HER SHOULDER, USE HER LEFT HAND/ARM TO HELP WITH REPOSITION, MAKE EYE CONTACT DURING CONVERSATION, AND ANSWER QUESTIONS MORE CLEARLY. BY THE END OF THE SHIFT, PATIENT WAS REPORTING HUNGER AND REQUESTING FOOD. SHE REPORTS UNDERSTANDING THAT SHE WILL NEED TO WAIT UNTIL SPEECH THERAPY IS ABLE TO EVALUATE HER IN THE MORNING. PATIENT CONTINUES TO BE INCONTINENT. THROAT SWAB OBTAINED PART OF CLEARANCE PROTOCOL FOR MRSA. BP IMPROVED FROM 180'S/110'S TO 170/98 AFTER IV HYDRALAZINE GIVEN PER ORDER. PATIENT DENIED PAIN AT REST AND REPORTED PAIN WITH REPOSITION (ESPECIALLY LEFT ANKLE). ENCOURAGED PARTICIPATION IN REPOSITION AND CAREFULLY ASSISTED PATIENT WITH REPOSTION. DENIED OTHER NEEDS.
--- NOTE | 2018-10-22 04:35 | NUR ---
SHIFT SUMMARY PT CONTINUED TO BE SLEEPY THIS EVENING. MORE AWAKE AT START OF SHIFT, REQUESTING WATER. EXPLAINED TO PT WHY SHE WAS NPO AND THAT SHE MUST BE CLEARED BY SPEECH THERAPY TO ADVANCE HER DIET. PT COOPERATIVE. SHORTLY AFTER PT FELL ASLEEP. PT WOULD WAKE EASILY BUT WOULD QUICKLY FALL BACK ASLEEP. CONTINUED TO HAVE L FACIAL DROOP AND LEFT SIDED WEAKNESS. ABLE TO MOVE ALL EXTREMETIES BUT STRUGGLES WITH MOVING THE LEFT SIDE OF HER BODY. SPEECH CONTINUES TO BE SLURRED BUT IMPROVED PER REPORT. BLOOD PRESSURE REMAINS ELEVATED BUT IMPROVING THROUGHOUT THE NIGHT. SYSTOLIC IN THE 140'S WITH LAST CHECK. IMPROVED FROM 190'S EARLIER IN SHIFT. OTHERWISE VSS. TELEMETRY AFIB IN THE 90'S. PT BEDREST. INCONTINENT. TURNED AND CHANGED PT NEEDED. PREVENTATIVE MEPILEX TO COCCYX. PT APPEARS TO BE SLEEPING COMFORTABLY AT THIS TIME. WILL CONTINUE TO MONITOR AND REPORT TO DAY RN.
[2018-10-22 05:53] LABS: BASOPHILS ABSOLUTE AUTO 0.08 K/mm3 (0.00-0.23); BASOPHILS PERCENT AUTO 1 % (0-2); EOSINOPHILS ABSOLUTE AUTO 0.13 K/mm3 (0.00-0.68); EOSINOPHILS PERCENT AUTO 1 % (0-6); Hematocrit 45.9 % (33.0-51.0); Hemoglobin 15.4 g/dL (11.5-16.0); IMMATURE GRAN ABSOLUTE AUTO 0.05 K/mm3 (0.00-0.10); IMMATURE GRAN PERCENT AUTO 1 % (0-1); LYMPHOCYTES ABSOLUTE AUTO 1.47 K/mm3 (0.84-5.20); LYMPHOCYTES PERCENT AUTO 14 % (21-46); MONOCYTES ABSOLUTE AUTO 0.69 K/mm3 (0.16-1.47); MONOCYTES PERCENT AUTO 6 % (4-13); Mean Corpuscular HGB 29.4 pg (26.0-34.0); Mean Corpuscular HGB Conc 33.6 g/dL (31.5-36.5); Mean Corpuscular Volume 88 fL (80-100); Mean Platelet Volume 10.7 fL (9.1-12.4); NEUTROPHILS ABSOLUTE AUTO 8.32 K/mm3 (1.96-9.15); NEUTROPHILS PERCENT AUTO 78 % (41-73); Platelet Count 231 K/mm3 (150-400); RDW Coefficient Variation 14.8 % (11.7-14.2); RDW Standard Deviation 47.5 fL (35.1-46.3); Red Blood Cell Count 5.23 M/mm3 (3.80-5.20); White Blood Cell Count 10.74 K/mm3 (4.00-11.30)
[2018-10-22 06:17] LABS: Anion Gap 7 mmol/L (6-16); Blood Urea Nitrogen 19 mg/dL (8-24); Bun/Creatinine Ratio 16.5 (12.0-20.0); CO2, Blood 26 mmol/L (21-32); Calcium, Blood 8.7 mg/dL (8.5-10.1); Chloride, Blood 109 mmol/L (98-108); Creatinine, Blood 1.15 mg/dL (0.40-1.00); Glomerular Filtration Rate 49 (60-); Glucose, Blood 196 mg/dL (70-99); Phosphorus, Blood 3.4 mg/dL (2.5-4.9); Potassium, Blood 3.7 mmol/L (3.5-5.5); Sodium, Blood 142 mmol/L (136-145)
--- NOTE | 2018-10-22 14:46 | NUR ---
Pt. is lying in bed and her nurse in the room attending to her needs offered spiritual support and prayers.
--- NOTE | 2018-10-23 04:22 | NUR ---
shift summary no acute changes overnight. Pt easily awakened but difficult to keep awake long enough to take medications or answer questions. Pt incontinent t/o night filler and turned and cleaned as required. hemiparesis on left side with left facial droop noted on exam. will continue to monitor.
[2018-10-23 06:32] LABS: Albumin, Blood 2.9 g/dL (3.4-5.0); Anion Gap 7 mmol/L (6-16); Blood Urea Nitrogen 27 mg/dL (8-24); Bun/Creatinine Ratio 20.1 (12.0-20.0); CO2, Blood 26 mmol/L (21-32); Calcium, Blood 8.9 mg/dL (8.5-10.1); Chloride, Blood 110 mmol/L (98-108); Creatinine, Blood 1.34 mg/dL (0.40-1.00); Glomerular Filtration Rate 41 (60-); Glucose, Blood 167 mg/dL (70-99); Potassium, Blood 3.9 mmol/L (3.5-5.5); Sodium, Blood 143 mmol/L (136-145)
--- NOTE | 2018-10-23 13:30 | NUR ---
Pt. is lying in bed anesting and doing much better offered prayers and support.
--- NOTE | 2018-10-23 19:03 | NUR ---
Initial Visit: Palliative Care Consult for AD/POLST, Advanced Care Planning, New Diagnosis, and Symptom Management. Pt is resting in bed with her eyes closed upon arrival. She responds with gentle verbal stimuli. During orientation assessment she answer all questions correctly. Correct answers included place, reason for hospital admission, current year, and current vice president of customer service. At this time Pt is A&Ox4. Asked simple yes or no questions such as is there a clock in the room, or do you have blankets covering you. Pt answered correctly to questions. Pt speech is slurred and difficult to understand at times. Pt denies pain and dyspnea at this time. Pt states "I have had 41 srokes". Asked if she had any living relatives. Pt reports all relatives are including sibblings, children, nieces and nephews. Pt does ask if there is any medications she can take to keep from having strokes. Instructed Pt these are questions the doctor can address. Pt reports no concerns at this time. Spoke with bedside nurse Radha prior to Pt visit and she reports plan for compentancy evuluation then possible ethics consult. Radha reports Pt experiences confusion and failed her swallow evaluation today. Called and spoke with caregiver Anthony prior to visit and she reports no known living relatives. She reports Pt has mentioned living in [facility] at one point in her life. In an attempt to contact any known living relatives. Called and left message with [facility] [employer] requesting to speak with keo noonan. Keo Noonan returns call and he reports little information of Pt. 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 Did not give names of Hotel or Fdc. Called [facility] message with [facility] [employer] requesting a call back. Palliative Care will remain available.
--- NOTE | 2018-10-23 19:11 | NUR ---
PT. LYING QUIETLY AT THIS TIME. THIS MORNING SHE WAS CHOKING ON ALL FOOD AND THE LEFT DROOP TO HER FACE WAS MORE PRONOUNCED AND HER SECRETIONS WERE DRAINING OUT OF CORNER OF MOUTH. NOTIFIED Juan Diego DUPONT AND SHE CAME AND REEVALUATED HER. PT. UNABLE TO SWALLOW AT THIS TIME. PLACED PT. NPO AGAIN. DR. HASSAN NOTIFIED OF PT. DETERIORIZATION AND SHE ORDERED A REPEAT CT. CT SHOWED EVOLVING CVA.
--- NOTE | 2018-10-24 05:37 | NUR ---
SHIFT SUMMARY PT WITH CONTINUED LEFT SIDE WEAKNESS AND FACIAL DROOP. PATIENT LETHARGIC THROUGHOUT THE TRANSMISSION AND COORDINATION ENGINEER. NPO. 1 DOSE IV HYDRALAZINE GIVEN FOR SBP >160. PATIENT REFUSED TO ANSWER ANY QUESTIONS ASKED BY THE NURSE T/O THE SHIFT AND REFUSED TO ACKNOWLEDGE ANY UNDERSTANDING ALTHOUGH PATIENT WOULD TURN SELF IN BED FOR SAWMILL OR TIMBER YARD WORKER. POWERGLIDE REMAINS PATENT IN UPPER RIGHT ARM. CLINDIMIX RUNNING THROUGH IV AT 50Ml/HR. WILL CONTINUE TO MONITOR
--- NOTE | 2018-10-24 14:19 | NUR ---
Met pt . lying in bed resting pt. is titi much better encouraged pt. and prayerd for her
--- NOTE | 2018-10-24 14:22 | NUR ---
Met pt. lying in bed resting and her nurse in the roomfffffffffffffffffffffffffffffffffffff Met pt. in bed bresting and her nurse in the room attending to here needs ,prayed for the pt.
--- NOTE | 2018-10-24 17:58 | NUR ---
SHIFT SUMMARY OUT OF BED (2 PERSON MAX ASSIST) TO CHAIR FOR SEVERAL HOURS TODAY. PPN INITIATED WITH PENDING REPEAT SWALLOW EVALUATION TOMORROW. DR. BARNES PLACED GUARDIANSHIP AND DIRECTOR OF MANAGED CARE CONSULTS PT IS UNABLE TO MAKE HER OWN MEDICAL DECISIONS AND THERE IS NO FAMILY THAT IS ABLE TO BE CONTACTED. NPO. INCONTINENT. CONFUSED AT TIMES, CALM, COOPERATIVE.
--- NOTE | 2018-10-25 01:34 | NUR ---
CARDIAC PAUSE PER THE CLINICAL REVIEW SPECIALIST, THE PT HAD A 3.2 SECOND PAIN AT APPROXIMATELY 0110. SHE RESUMED HER BASELINE AFIB IN THE 70S. PT WAS SLEEPING WITH NO SIGNS OF DISTRESS. THE HOSPITALIST DR UP WAS NOTIFIED. NO CURRENT CHANGES IN ORDERS. HOSPITALIST WAS ALSO NOTIFIED OF PT'S ESBL POSITIVE URINE CULTURE. PATIENT IS ASYMPTOMATIC FOR A UTI AT THIS TIME, AND VITALS REMAIN STABLE, NO CHANGES IN MEDICATIONS ARE NEEDED. WILL CONTINUE TO MONITOR.
--- NOTE | 2018-10-25 05:36 | NUR ---
SHIFT SUMMARY PT IS A 73 Y/O FEMALE, ADMITTED FOR AN ACUTE CVA. SHE IS A&O X SELF. PT IS ON BEDREST WITH L-SIDE WEAKNESS RELATED TO HER CVA. PT IS CURRENTLY NPO DUE TO FAILING A SWALLOW EVAL. PPN RUNNING AT 75 ML/HR. PT DENIED ANY COMPLAINTS OF PAIN, NAUSEA OR SOB, AND SLEPT WELL THROUGH THE NIGHT. PT'S BP WAS ELEVATED DURING AM VITALS AT 169/80, AND WAS MEDICATED WITH IV HYDRALAZINE. PER THE PANTRY ATTENDANT, THE PT HAD A 3.2 SECOND PAUSE DURING THE NIGHT (SEE PREVIOUS NOTE). ALL OTHER VITALS STABLE. NO OTHER ACUTE CHANGES IN PT CONDITION NOTED. WILL CONTINUE TO MONITOR AND TREAT PER EMAR UNTIL HAND OFF TO DAY SHIFT.
[2018-10-25 05:47] LABS: Triglycerides 319 mg/dL (30-160)
--- NOTE | 2018-10-25 16:08 | NUR ---
SHIFT SUMMARY TODAY DR. HASSAN AND I DISCUSSED CHANGING PATIEN TO A MARY FOR NUTRITION. THIS RN EDUCATED PATIENT ON THE INSERTION OF TUBE. PATIENT SAID "I WOULD RATHER KEAL OVER AND THAN BE FED LIKE THAT." THIS RN EXPLAINED THAT IS IS NOT TOLERATING FOOD. SHE SAID "WELL I DONT WANT IT THE WAY YOU SUGGESTED." PATIENT ASKED IF WE COULD CONTINUE WITH IV NUTRITION. RN SPOKE WITH AND AGREEED TO HOLD OFF ON MARY AT THIS POINT. PATIENT HAS BEEN INCONTINENT OF STOOL AND URINE. CHANGED PRN. ALERT TO TELL US HER PREFERRED NAME OF YESSI. ABLE TO ANSWER SIMPLE QUESTIONS. STATES SHE IS VERY TIRED AT THIS TIME.
--- NOTE | 2018-10-26 06:11 | NUR ---
SHIFT SUMMARY PATIENT IS ALERT AND CONFUSED. PATIENT HAS A SLIGHT FACIAL DROOP ON LEFT SIDE. WITH LEFT SIDED DEFICITS. PATIENT RECIEVING PPN AT 105ML/HR. PT IS Q6H CBG, AND VITALS. PATIENTS BP HAS BEEN ELEVATED, MEDICATED ORDERED. PATIENT HAS A POWER GLIDE IN RIGHT UPPER ARM. PATIENT IS A TURN Q2H, AND INCONTINENT. PATIENT SWEATS A LOT THROUGHOUT THE NIGHT, TOTAL BED CHANGE DONE. PLAN IS FOR PATIENT TO HAVE AN ETHICS COMMITY ON SATURDAY. NO NEW ACUTE CHANGES THROUGHOUT THE NIGHT. PATIENT NPO AND CALL LIGHT IN REACH.
--- NOTE | 2018-10-26 07:47 | NUR ---
BP 188/111 DR. DOTY CALLED & NOTIFIED THAT THE PT BP IS 188/111. OTHER VITALS STABLE. INFORMED THAT THE PT RECIEVED 10MG HYDRALIZINE IV AT 0545. DR. DOTY ORDERED TO GIVE A OT DOSE OF 10MG HYDRALIZINE IV. WILL CONTINUE TO MONITOR.
--- NOTE | 2018-10-26 17:45 | NUR ---
SHIFT SUMMARY NO CHANGES IN ASSESSMENT AT THIS TIME. VSS. PT SLEPT MOST THE SHIFT, BUT AROUSABLE. PT ALERT TO SELF BUT UNAWARE OF SITUATION. PT REFUSED ORAL CARE & PUSHES ARMS AWAY TO STOP. PT ON PPN AT 105ML/HR. PT COMPLAINED OF HER ARM HURTING WHERE HER PG IS LOCATED. PG ASSESSED BY PG NURSE & IS PATENT. WILL CONTINUE TO MONITOR UNTIL TURNOVER IS COMPLETE. ETHICS COMITTEE TO GATHER 10/27/18.
[2018-10-27 05:26] LABS: BASOPHILS ABSOLUTE AUTO 0.05 K/mm3 (0.00-0.23); BASOPHILS PERCENT AUTO 1 % (0-2); EOSINOPHILS ABSOLUTE AUTO 0.26 K/mm3 (0.00-0.68); EOSINOPHILS PERCENT AUTO 2 % (0-6); Hematocrit 46.9 % (33.0-51.0); Hemoglobin 15.5 g/dL (11.5-16.0); IMMATURE GRAN ABSOLUTE AUTO 0.06 K/mm3 (0.00-0.10); IMMATURE GRAN PERCENT AUTO 1 % (0-1); LYMPHOCYTES ABSOLUTE AUTO 1.38 K/mm3 (0.84-5.20); LYMPHOCYTES PERCENT AUTO 13 % (21-46); MONOCYTES ABSOLUTE AUTO 1.01 K/mm3 (0.16-1.47); MONOCYTES PERCENT AUTO 9 % (4-13); Mean Corpuscular HGB 29.5 pg (26.0-34.0); Mean Corpuscular Volume 89 fL (80-100); Mean Platelet Volume 11.7 fL (9.1-12.4); NEUTROPHILS ABSOLUTE AUTO 8.04 K/mm3 (1.96-9.15); NEUTROPHILS PERCENT AUTO 74 % (41-73); Platelet Count 245 K/mm3 (150-400); RDW Coefficient Variation 14.6 % (11.7-14.2); RDW Standard Deviation 47.8 fL (35.1-46.3); Red Blood Cell Count 5.25 M/mm3 (3.80-5.20)
--- NOTE | 2018-10-27 05:47 | NUR ---
SHIFT SUMMARY PATIENT IS ALERT AND ORIENTED TO SELF. PATIENT IS A TURN Q2H, A TWO PERSON TURN. PATIENT SLEPT WELL THROUGHOUT THE NIGHT. PLAN IS FOR PATIENT TO HAVE AN ETHICS MEETING HELD TODAY. PATIENT IS HUNGRY AND ASKING FOR FOOD. PATIENT IS GETTING PPN. VITALS STABLE.
[2018-10-27 05:56] LABS: Magnesium, Blood 2.4 mg/dL (1.6-2.4)
[2018-10-27 05:57] LABS: Albumin, Blood 2.7 g/dL (3.4-5.0); Albumin/Globulin Ratio 0.7 (0.8-1.8); Bilirubin, Total 0.9 mg/dL (0.1-1.0); Bun/Creatinine Ratio 22.9 (12.0-20.0); Calcium, Blood 8.9 mg/dL (8.5-10.1); Creatinine, Blood 1.18 mg/dL (0.40-1.00); Potassium, Blood 4.3 mmol/L (3.5-5.5); Total Protein, Blood 6.7 g/dL (6.4-8.2)
[2018-10-27 05:59] LABS: Thyroid Stimulating Hormone 1.29 uIU/mL (0.360-4.800)
--- NOTE | 2018-10-27 15:55 | NUR ---
[facility] Spiritual Care initial visit: Sherlyn and I met during her last admission in August. She was a bit confused then. She had been homeless for many years and had recently moved into "someone's house." Today, she would awaken to voice and touch, but she could not stay awake. She does not appear in any distress and appears well cared-for by nursing. Last admission, she enjoyed prayer, so I sat beside her, held her hand, and prayed. She is Lutheran, but has not been active for many years. I will remain available.
--- NOTE | 2018-10-27 16:13 | NUR ---
Pt visit this afternoon. Pt just received personal care from bedside nurse and GRAIN FARMWORKER. Pt is A&Ox3 and reports the incorrect year. Pt anwers other questions appropirately such as is there a clock in the room, is there a television in the room, and am I wearing a watch. Pt answers yes to all these questions. Asked Pt if I was wearing a black shirt and Pt states no. This RN is wearing a el shirt. Discussed Pt's wishes that were discussed with the development advisor. Pt reports wishes are the same. Pt does not want IV nutrition or tube feeding. Assessed Pt's understanding of current condition and inability to swallow safely. Asked Pt if she understood the consequences of stopping IV nutrition and she states "Yes I will croke". Offered therapeutic touch by gently rubbing shoulder. Pt slowly closes her eyes and this RN ended visit. Spoke with bedside nurse Heidi and discussed plan to place Pt on comfort. Called and spoke with Dr Yoder and relayed Pt's wishes. Dr Yoder will place order for comfort care. Palliative Care will remain available.
--- NOTE | 2018-10-27 16:25 | NUR ---
COMFORT CARE COMFORT CARE INITIATED AT 1420. PT RESTING COMFORTABLE IN BED AT THIS TIME. WILL CONTINUE TO MONITOR.
--- NOTE | 2018-10-27 17:50 | NUR ---
SHIFT SUMMARY PT ON COMFORT CARE. NO CHANGES IN COMFORT LEVEL. PT DENIES NEEDS AT THIS TIME. PPN STOPPED. WILL CONTINUE TO MONITOR FOR COMFORT LEVEL/PAIN.
--- NOTE | 2018-10-27 23:37 | NUR ---
10/27/18 2340 QUIET AND DENIES ANY DISCOMFORT OR S/S. REPOSITIONED AND ORAL CARE GIVEN. NPO.
--- NOTE | 2018-10-28 06:15 | NUR ---
10/28/18 0615 SLEEPING WITHOUT DISCOMFORT OR S/S. REPOSITIONED AND ORAL/SEUN-CARE GIVEN BY CNAS. COMFORTABLE NIGHT AND SLEPT WELL.
--- NOTE | 2018-10-28 07:55 | NUR ---
PATIENT APPEARS TO BE RESTING COMFORTABLY. NO SIGNS OF DISTRESS PRESENT. SLEEPING. REPOSITIONED/CHANGED. RN WILL CONTINUE TO MONITOR.
--- NOTE | 2018-10-28 12:40 | NUR ---
PAL CARE COMFORT CARE VISIT - Pt in left side lying position, quietly resting, with eyes open. I introduced myself and did a s/s assessment. Pt denies pain, ROBERTS, anxiety, distress. When asked how she was doing, she replied, "I'm alive". She was not conversant otherwise. Moved call light within reach. Sat with pt for a bit while she watched TV. When asked if she was hungry she did not answer. When asked if I could bring her anything, she did not respond but kept watching TV. Will request Wrapper Operator visit and music therapy visit.
--- NOTE | 2018-10-28 14:10 | NUR ---
PATIENT LYING IN BED, STATES SHE HAS A HEADACHE BUT REFUSES THE NEED FOR ANY PAIN MEDICATON.
--- NOTE | 2018-10-28 15:24 | NUR ---
Pt. is lying in bed resting seems to kenyatta getting better prayed for her.
--- NOTE | 2018-10-28 17:30 | NUR ---
SHIFT SUMMARY PATIENT ALERT AND ORIENTED TO SELF. COMFORT CARE PATIENT. REPOSITION AND COMFORT CARE ASSESSMENTS Q 2 HOURS. PATIENT REFUSED ALL ORAL CARE OFFERED BY THIS NURSE. DIET CHANGED TO REGULAR DIET PER PT REQUEST. APPEARED TO BE RESTING COMFORTABLY THROUGHOUT THE SHIFT. NO ACUTE CHANGES. RN WILL CONTINUE TO MONITOR.
--- NOTE | 2018-10-28 18:02 | NUR ---
Sherlyn was talkative today. She told me random stories from her life. Some were quite wild. At times, she spoke as if she were a child, stating she wondered if her parents would come take her to play today. She denies pain or fear and chatted happily with me. She complained of being hungry and I made her a milk-shake, which she loved. She does not know why she is hospitalized, but does not appear to be bothered by this.She told me she has a "boyfriend who works for the [employer]" who is away on a secret mission. His name is Robles. She is listed as Episcopalian and appeared to enjoy prayer. I will remain available.
--- NOTE | 2018-10-28 23:55 | NUR ---
10/28/18 2355 PT SLEEPING WELL. NO DISTRESS NOTED.
--- NOTE | 2018-10-29 05:41 | NUR ---
10/29/18 0540 REPOSITIONED TO OTHER SIDE. DENIES ANY S/S OR DISCOMFORT. SLEPT THROUGH SEUN-CARE AND REPOSITIONING.
--- NOTE | 2018-10-29 07:50 | NUR ---
PATIENT APPEARS TO BE RESTING COMFORTABLY. PATIENT IS SLEEPING, IS EASILY AROUSABLE. DOES NOT APPEAR TO BE IN ANY ACUTE DISTRESS. BED ALARM IS IN PLACE.
--- NOTE | 2018-10-29 11:51 | NUR ---
Pt. is lying in bed cofused ofered encouragement and prayers spiritual suport.
--- NOTE | 2018-10-29 14:36 | NUR ---
PATIENT RESTING, APPEARS COMFORTABLE. DENIES ANY PAIN, SOB, NAUSEA. PATIENT HAS BEEN REFUSING ORAL CARE T/O SHIFT. LITTLE TO NO ORAL INTAKE. POOR APPETITE AND HAS NOT EATEN ANYTHING. REPOSITIONING Q2 HOURS. RN WILL CONTINUE TO MONITOR.
--- NOTE | 2018-10-29 19:22 | NUR ---
SHIFT SUMMARY COMFORT CARE PATIENT. AWAKE AND ALERT. RESPONDS WHEN ASKED QUESTIONS. CONFUSED. INCONTINENT. Q 2 REPOSITION AND CHANGE. DENIES ANY PAIN, SOB, OR NAUSEA. POOR APPETITE THIS SHIFT BUT DID EAT A LOT OF HER DINNER TRAY. REFUSED ORAL CARE T/O SHIFT. NO ACUTE CHANGES. REPORT GIVEN TO CREAM MAKER RN.
--- NOTE | 2018-10-29 19:41 | NUR ---
ASSUMED CARE OF THE PATIENT: PT RESTING IN BED, HER HEAD CONTINUED TO HIT THE NURSE LIGHT ON THE BED. SHE WAS PLEASANTLY CONFUSED. STATES NO PAIN OR DISCOMFORT. DENIED ANY OTHER CONCERNS. "I'M BORED." OFFERED HER SOME CRAYONS AND COLORING PICTURES, AND TO TURN ON HER TV BUT SHE DENIED STATES JUST TO HAVE GOOD MUSIC. REPOSITIONED HER IN BED, ASSESSMENT BENIGN WITH CLEAR LUNG SOUNDS, AND HR GOOD. WEAKNESS NOTED TO THE RIGHT SIDE. WILL CONTINUE TO MONITOR.
--- NOTE | 2018-10-29 23:10 | NUR ---
COMFORT CARE: PATIENT RESTING COMFORTABLY , NO DISTRESS NOTED.
--- NOTE | 2018-10-29 23:10 | NUR ---
COMFORT CARE: PATIENT RESTING COMFORTABLY, ATTEMPTED TO REPOSITION BUT SHE DID NOT WANT TO MOVE.
--- NOTE | 2018-10-30 00:20 | NUR ---
NO CHANGES PATIENT CONTINUES TO SLEEP COMFORTABLY
--- NOTE | 2018-10-30 01:40 | NUR ---
NO CHANGES PATIENT SLEEPING
--- NOTE | 2018-10-30 03:06 | NUR ---
CHANGED ATTENDS AND REPOSITIONED THE PATIENT, NO PAIN NOTED.
--- NOTE | 2018-10-30 05:03 | NUR ---
SHIFT SUMMARY: PATIENT HAS SLEPT COMFORTABLY ALL NIGHT. REPOSITIONING AND ATTENDS CHANGED PRN. NO PAIN WAS NOTED. SHE HAD A VERY UN-EVENTFUL NIGHT WITH NO ACUTE CHANGES OR CONCERNS TO NOTE. COMFORT CARE WAS PROVIDED WELL. WILL REPORT TO DAY SHIFT RN.
--- NOTE | 2018-10-30 06:58 | NUR ---
NO FURTHER CHANGES NOTED, PATIENT RESTING.
--- NOTE | 2018-10-30 12:27 | NUR ---
PATIENT EATING THE PATIENT ATE 100% OF HER LUNCH AND DRANK 360 ML OF FLUID.
--- NOTE | 2018-10-30 14:35 | NUR ---
Pt.is in bed taking her snacks she reports to be doing well encouraged pt offered pr Pt is in bed sitting up with her snacxk s in hand she reports doing a little better prayed for her.
--- NOTE | 2018-10-30 16:13 | NUR ---
SHIFT SUMMARY THE PATIENT PRESENTED THIS SHIFT A COMFORT CARE PATIENT THAT WAS SLEEPING AND NOT WANTING TO WAKE UP. THE PATIENTWOKE UP FOR LUNCH AND ATE WELL. THE PATIENT HAS NOT REQUIRED ANY MEDICATIONS SO DURING THIS SHIFT. WILL CONTINUE TO MONITOR.
--- NOTE | 2018-10-30 16:14 | NUR ---
Pal Spiritual Care note: Sherlyn was sitting up in bed, pleasant, but slow to respond. She denied pain or concerns and appears well cared-for by nursing. She wanted to know how she ended up in the hospital. I told her, but she would ask again a few minutes later. She responded well to comfort through touch and prayer. I made her a milkshake which she happily slurped down. Quality Assurance Analyst Services will remain available.
--- NOTE | 2018-10-30 19:34 | NUR ---
Assumed care of patient: Pt sleeping comfortably, awakened easily, denies pain and discomfort. Repositioned the pillow and offered to reposition her, she states she was comfortable. Lung sounds were clear throughout, HR regular, denies any chest pain or discomfort. BT hypoactive, skin PWD, no skin breakdown, attends in place and dry. Will continue to monitor.
--- NOTE | 2018-10-30 20:32 | NUR ---
STATES PAIN IN NECK, REPOSITIONED AND CHANGED ATTENDS, ROXINAL 10MG GIVEN FOR PAIN
--- NOTE | 2018-10-30 23:00 | NUR ---
PATIENT SLEEPING, NO CHANGES
--- NOTE | 2018-10-31 01:03 | NUR ---
PATIENT SLEEPING , NO CHANGES
--- NOTE | 2018-10-31 01:04 | NUR ---
PATIENT SLEEPING, NO CHANGES
--- NOTE | 2018-10-31 03:00 | NUR ---
NO ACUTE CHANGES
--- NOTE | 2018-10-31 05:43 | NUR ---
SHIFT SUMMARY: DAGOBERTO REMAINED PLEASANT AND COOPERATIVE. REPORTED PAIN IN NECK X1, GAVE HER PAIN MEDICATION PER EMAR. THIS PROVIDED HER PAIN RELEIF AND ALLOWED FOR HER TO SLEEP. SHE WAS CHANGED X2 THROUGHOUT THE SHIFT AND DENIED NEED FOR WATER. SHE HAD NO OTHER ACUTE CHANGES THIS SHIFT. WILL REPORT TO DAY SHIFT RN.
--- NOTE | 2018-10-31 14:31 | NUR ---
Comfort Care visit this afternoon. Pt is resting in bed with her eyes closed and appears comfortable. No S/S of distress at this time. Palliative Care will remain available.
--- NOTE | 2018-10-31 14:43 | NUR ---
Pt. is lying in bed resting she reports doingmuch better encouraged her and offerd prayers
--- NOTE | 2018-10-31 16:18 | NUR ---
SHIFT SUMMARY THE PATIENT IS A COMFORT CARE PATIENT. THE PATIENT IS A&O AND EATING ON HER OWN. THE PATIENT IS COMFORTABLE AT THIS TIME, WILL CONTINUE TO MONITOR.
--- NOTE | 2018-10-31 22:21 | NUR ---
PATIENT ON COMFORT CARE. TURNED Q2 AND ATTENDS CHANGE. CALL LIGHT IN REACH.
--- NOTE | 2018-11-01 03:13 | NUR ---
SHIFT SUMMARY PATIENT IS ON COMFORT CARE. AXOX 3 BEDFAST WITH SLURRED SPEECH. HX DEMENTIA. NO IV ACCESS. PATIENT REPORTS SHE LIKES TO LISTEN TO COMFORT CARE MUSIC ON TV. DENIES PAIN, SOB, AND N/V. TURNED Q2. ATTENDS CHANGED T/O SHIFT. CALL LIGHT IN REACH. BED IN LOWEST POSITION. WILL CONTINUE TO MONITOR UNTIL DAY SHIFT NURSE ASSUMES CARE.
--- NOTE | 2018-11-01 10:29 | NUR ---
PATIENT ASKED FOR AND WAS GIVEN WATER AND HER BREAKFAST TRAY. NO COMPLAINTS OF PAIN. PATIENT SITTING UP IN BED .
--- NOTE | 2018-11-01 16:30 | NUR ---
REPOSITIONED , OFFERED WATER
--- NOTE | 2018-11-01 16:34 | NUR ---
NO ACUTE CHANGES TO PATIENT. CONTINUES TO SLEEP OR REST ALL SHIFT. WAS GIVEN A BED BATH. PATIENT ASKED FOR AND WAS GIVEN LUNCH. WATER OFFERED DESIRED.
--- NOTE | 2018-11-01 17:31 | NUR ---
PAL CARE COMFORT CARE VISIT Stopped by pt's room for visit. She was eating her dinner and appeared to be enjoying it. She was not interested in an assessment. She did not appear to be experiencing pain or anxiety at this time. Will cont to follow for s/s assessment/management.
--- NOTE | 2018-11-01 22:55 | NUR ---
COMFORT CARE PATIENT ATTENDS CHANGE AND REPOSITION. CALL LIGHT IN REACH.
--- NOTE | 2018-11-02 03:05 | NUR ---
SHIFT SUMMARY COMFORT CARE PATIENT AXOX 3 WITH HX OF CVA AND SLURRED SPEECH. BEDFAST AND NO IV ACCESS. PATIENT ABLE TO REST/SLEEP T/O SHIFT. DENIES PAIN, SOB, AND N/V. TURNED Q2 AND ATTEND CHANGES NEEDED. CALL LIGHT IN REACH. BED IN LOWEST POSITION. WILL CONTINUE TO MONITOR UNTIL DAY SHIFT NURSE ASSUMES CARE.
--- NOTE | 2018-11-02 09:21 | NUR ---
PATIENT ALERT AND TALKING TO STAFF. PATIENT WAS DRESSED BY STAFF AND REPOSITIONED IN BED . NO DISTRESS NOTED OR REPORTED.
--- NOTE | 2018-11-02 11:48 | NUR ---
PATIENT HAD BEDBATH AND LINENS CHANGES. LUNCH OFFERED AND BROUGHT INTO PATIENT. NO DISTRESS NOTED.
--- NOTE | 2018-11-02 15:33 | NUR ---
PATIENT CONTINUES TO HAVE NO ACUTE CHANGES . SHE IS BEDFAST AND REQUIRES ASSISTANCE WITH ADL'S . SHE IS CONFUSED AND FORGETFUL BUT DOES CONVERSE WITH STAFF THOUGH OFTEN NONSENSICAL IN NATURE. NO DISTRESS NOTED. PERSONAL CARE DONE THIS SHIFT .
--- NOTE | 2018-11-02 22:24 | NUR ---
PATIENT REPOSITIONED Q2. ATTENDS CLEAN AND DRY. CALL LIGHT IN REACH. WILL CONTINUE TO MONITOR.
--- NOTE | 2018-11-03 03:53 | NUR ---
SHIFT SUMMARY COMFORT CARE PATIENT HAD NO ACUTE CHANGES. AXO X3 W/SLURRED SPEECH AND HX DEMENTIA. BEDFAST WITH CONFUSION. NO IV ACCESS. DENIES PAIN, SOB, AND N/V. TURN Q2 WITH ATTENDS CHANGES T/O SHIFT. CALL LIGHT IN REACH. BED IN LOWEST POSITION. WILL CONTINUE TO MONITOR UNTIL DAY SHIFT NURSE ASSUMES CARE.
--- NOTE | 2018-11-03 08:05 | NUR ---
PT DROWSY, FATIGUED. AROUSES TO VERBAL STIM. STATE "STOMACH ACHE" HOWEVER DENIES NAUSEA. STATE IT IS NOT PAIN & DOES NOT WANT "PAIN PILLS". HR IRREG 70'S, HX AFIB. SHE DECLINES FLUIDS, STATE COMFORTABLE FOR NOW & GOES BACK TO SLEEP
--- NOTE | 2018-11-03 12:54 | NUR ---
DR DOTY IN TO SEE PT, NO NEW ORDERS. PT SITTING UP IN BED, DECLINES LUNCH HOWEVER DRINKING ENSURE. SHE STATE NO PAIN @ THIS TIME, WATCHING TV.
--- NOTE | 2018-11-03 13:45 | NUR ---
Comfort Care: Pt appears to be comfortable. She denies pain, anxiety. "I'm still alive," she states. She does not have concerns at this time.
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
--- NOTE | 2018-11-03 17:15 | NUR ---
SUMMARY COMFORT CARE CONTINUES. DR DOTY STATE WE ARE WORKING ON GUARDIANSHIP. PT HAS BEEN AWAKE, ORIENTED X2. SPEECH IS SOMEWHAT GARBLED @ X'S NONSENSICAL. SHE IS ABLE TO MAKE BASIC NEEDS KNOWN. STATED ABD DISCOMFORT THIS AM HOWEVER DENIED NAUSEA. POOR APPETITE TODAY. SHE HAS HAD SOME ENSURE. HAD SM AMT EMESIS WHILE TURNING FOR ATTENDS CHANGE. LRG SOFT BM TODAY.
--- NOTE | 2018-11-04 05:27 | NUR ---
SHIFT SUMMARY PT SLEPT WELL DURING THE NIGHT, NO ACUTE CHANGES OR EVENTS NOTED. WILL CONTINUE TO MONITOR.
--- NOTE | 2018-11-04 07:46 | NUR ---
PT IS DROWSY, SLEEPY @ ONSET OF SHIFT, AROUSES W STIM. STATE NO PAIN/DISCOMFORT. SPEECH CONTINUES SOMEWHAT SLURRED. SHE FALLS BACK TO SLEEP EASISLY. WILL MX & CONTINUE TO PROVIDE COMFORT CARE.
--- NOTE | 2018-11-04 09:14 | NUR ---
PT DECLINES BF, POOR APPETITE CONTINUES. CONTINUES TO STATE NO PAIN. BACK TO SLEEP.
--- NOTE | 2018-11-04 14:12 | NUR ---
Pt. is in bed watching T.V. pt. is doing much better encouraged pt and prayed for her.
--- NOTE | 2018-11-04 16:14 | NUR ---
SUMMARY PT HAS BEEN SOMEWHAT FATIGUED TODAY, SLEEPING MUCH OF DAY. SHE STATE NO PAIN. STATE STOMACH FEELS BETTER, APPETITE SOMEWHAT IMPROVED HOWEVER NOT EATING MUCH. SHE HAD DIFFICULTY CHEWING MEAT, DIET CHANGED TO MECH SOFT. SHE CONTINUES TO MOVE L ARM & L LEG HOWEVER SOMEWHAT WEAK, STATE NO FEELING L ARM. SPEECH CONTINUES SLURRED, NONSENSICAL. COMFORT CARE CONTINUES.
--- NOTE | 2018-11-04 20:33 | NUR ---
Comfort Care: Late entry: Pt seen and evaluated by palliative care earlier. She appears comfortable. Medications reviewed. No concerns at this time.
--- NOTE | 2018-11-05 05:51 | NUR ---
shift summary PT SLEPT WELL T/O NIGHT. OFFERS NO C/O'S THIS AM. NO ACUTE EVENTS NOTED, WILL CONTINUE TO MONITOR.
--- NOTE | 2018-11-05 07:22 | NUR ---
PT IN NO APPARENT DISTRESS. NO DYSPNEA/SOB/SECRETIONS. NO FAMILY MEMBERS PRESENT. WCTM.
--- NOTE | 2018-11-05 10:49 | NUR ---
Comfort Care: Pt is reclining in bed. She denies pain, anxiety. She is not interacting, and does not answer at all for some of the assessement questions. She is aware she is in the hospital. She is enjoying her food and eating. No mottling noted, pt not actively dying. No visitors in the room. Will remain available.
--- NOTE | 2018-11-05 11:22 | NUR ---
PT IN NO APPARENT DISTRESS. NO DYSPNEA/SECRETIONS. NO FAMILY MEMBERS PRESENT. WCTM.
--- NOTE | 2018-11-05 11:24 | NUR ---
NO C/O PAIN. NO DYSPNEA/SOB/SECRETIONS. NO FAMILY PRESENT. WCTM.
--- NOTE | 2018-11-05 13:33 | NUR ---
Pt, is lying in bed resting , making a little improvement encouraged pt. and prayed for her
--- NOTE | 2018-11-05 17:47 | NUR ---
PT IN NO APPARENT DISTRESS. NO DYSPNEA/SECRETIONS. NO FAMILY MEMBERS PRESENT. WCTM.
--- NOTE | 2018-11-05 17:47 | NUR ---
NO C/O PAIN. NO DYSPNEA/SECRETIONS. NO FAMILY IN ROOM. WCTM.
--- NOTE | 2018-11-05 17:48 | NUR ---
NO C/O PAIN. NO DYSPNEA/SOB/SECRETIONS. NO FAMILY MEMBERS PRESENT. WCTM.
--- NOTE | 2018-11-05 17:49 | NUR ---
PT IN NO APPARENT DISTRESS. NO DYSPNEA/SOB/SECRETIONS. NO FAMILY MEMBERS PRESENT. WCTM.
--- NOTE | 2018-11-05 19:22 | NUR ---
SHIFT SUMMARY: NO ACUTE CHANGES TO REPORT THSI SHIFT. PT REMAINS ON COMFORT CARE. NO C/O PAIN; PT IN NO APPARENT DISTRESS. NO DYSPNEA/SOB/SECRETIONS. NO FAMILY MEMBERS IN THIS SHIFT. REPORT GIVEN TO ONCOMING RN.
--- NOTE | 2018-11-06 04:31 | NUR ---
NOC SHIFT SUMMARY NO COMPLAINTS OF PAIN OR DISCOMFORT. NO SECTRETIONS. PT HAS SLEPT MUCH OF SHIFT. TURNED AND CHANGED ATTENDS. NO ACUTE CHANGES THIS SHIFT. PT APPEARS COMFORTABLE.
--- NOTE | 2018-11-06 08:01 | NUR ---
PATIENT SLEEPING WITH NO DISTRESS NOTED.
--- NOTE | 2018-11-06 11:26 | NUR ---
Pt WAS EATING BRKFST. COULDN'T REPOSITION HER UNTILL SHE WAS DONE EATING.
--- NOTE | 2018-11-06 11:53 | NUR ---
PATIENT BRIEF CHANGED, REPOSITONED , FOOD OFFERED.
--- NOTE | 2018-11-06 16:10 | NUR ---
CHANGED AND TURNED PER ORDER
--- NOTE | 2018-11-06 16:37 | NUR ---
PATIENT IS ALERT AND ORIENTED . SHE HAS HAS SOME COMPLAINTS OF PAIN AND WAS MEDICATED PER EMAR. LR STOPPED PER ORDER. NO COMPLAINTS OF SOB OR NV. HAS RESTED IN BED ALL SHIFT.
--- NOTE | 2018-11-06 16:44 | NUR ---
NO ACUTE CHANGES. NO COMPLAINTS AND RESTED MOST OF THE SHIFT. TURNED AND CHANGED NEEDED. MEALS OFFERED.
--- NOTE | 2018-11-07 01:29 | NUR ---
PT LYING IN BE AND APPEARS COMFORTABLE.
--- NOTE | 2018-11-07 07:44 | NUR ---
NOC SHIFT SUMMARY PT IS LYING IN BED THIS NIGHT. TURNED AND CHANGED THROUGHT THE NIGHT. SHE APPEARS COMFORTABLE AND HAS NOT VOICED DISCOMFORT. APPEARS IN NO ACUTE DISTRESS. REPORT TO ONCOMING RN.
--- NOTE | 2018-11-07 08:30 | NUR ---
Attempted to visit with Maryan this morning. She is resting with her eyes closed and resp are even and unlabored at this time. She appears to be comfortable and left her undisturbed this morning. Spoke with nursing who voiced concern that pt had been on comfort care and that comfort care was cancelled yesterday. Nursing reports that pt is choking on foods and is bedbound. Will speak with Dr. Mckenzie re: reinstating comfort care order.
--- NOTE | 2018-11-07 09:41 | NUR ---
Spoke with Dr. Mckenzie and nursing. Dr. Mckenzie will reorder pt's comfort care order. Pt with a history of CVA and dementia. She is currently on a mixed-soft diet and nursing reports that she continues to choke when she eats. She is fed only when she is awake and food is for comfort only. Maryan is now bedbound and requires assistance with positioning. She is incontinent. Last weight, documented on 10/30/18 was 86.7 kg. She has been on comfort care since 10/27/18. KPS and PPS scores both are 30.
--- NOTE | 2018-11-07 14:06 | NUR ---
PATIENT SLEEPING AT THIS TIME.
--- NOTE | 2018-11-07 14:07 | NUR ---
REPOSITIONED IN BED
--- NOTE | 2018-11-07 14:07 | NUR ---
LUNCH OFFERED. PATIENT ATE WELL.
--- NOTE | 2018-11-07 18:18 | NUR ---
SLEEPING. NO DISTRESS NOTED
--- NOTE | 2018-11-07 18:18 | NUR ---
DINNER OFFERED , PATIENT SLEEPING. NO DISTRESS NOTED.
--- NOTE | 2018-11-08 17:20 | NUR ---
SHIFT SUMMARY PATIENT DENIES NAUSEA AND SHORTNESS OF BREATH. MEDICATED X 1 FOR PAIN. PATIENT STATES SHE DOES NOT LIKE TO TAKE PAIN MEDICATION BUT REPORTS MODERATE PAIN IN HER UPPER ABDOMEN. PAIN MEDICATION OFFERED SEVERAL TIMES. PATIENT HAD LITTLE PO INTAKE. PATIENT PLEASANT AND COMPLIANT WITH CARE.
--- NOTE | 2018-11-08 19:07 | NUR ---
assumed care of patient. PATIENT APPEARS PAINFUL BUT REFUSES MEDICATION. REPOSITIONED AND FLOATED HIPS AND PATIENT DRIFTED OFF TO SLEEP. WILL CONTINUE TO MONITOR
--- NOTE | 2018-11-09 17:52 | NUR ---
SHIFT SUMMARY NO ACUTE CHANGES. PATIENT DECLINED PAIN MEDICATION EVEN THOUGH SHE IS IN OBVIOUS PAIN. PATIENT GIVEN KPAD, AND REPORTS IT HELPED REDUCE HER PAIN. PATIENT DENIES NAUSEA AND SHORTNESS OF BREATH. PATIENT DECLINED BREAKFAST BUT DID EAT LUNCH. CALL LIGHT IN REACH, WILL CONTINUE TO MONITOR.
--- NOTE | 2018-11-09 21:00 | NUR ---
1915: ASSUMED CARE OF PATIENT. 2029: TURNED PATIENT ONTO HER BACK AND CHANGED LINENES. SEUN CARE. PATIENT REFUSES PAIN MED. PATIENT REFUSED REMERON. SHIFT ASSESSMENT COMPLETED. CALL ISBELL WITHIN REACH. WILL CONTINUE TO MONITOR.
--- NOTE | 2018-11-10 16:45 | NUR ---
SHIFT SUMMARY PATIENT RESTING IN BED THIS SHIFT. PATIENT HAS DECLINED ALL MEALS. PATIENT MORE LETHARGIC TODAY WHEN COMPARED WITH YESTERDAY. PATIENT DENIES NAUSEA AND HSORTNESSOF BREATH. PATIENT HAS KPAD FOR COMFORT AND CONTINUES TO DECLINE PAIN MEDICATION.
--- NOTE | 2018-11-10 21:56 | NUR ---
COMFORT CARE 9855 PATIENT REPOSITIONED. APPEARED SLEEPY. STATED PREVIOUSLY PATIENT PAINFUL; WHEN OFFERED PAIN MEDICATION PATIENT STATED NO. BED IN LOWEST POSITION. CALL LIGHT AND BELONGINGS WITHIN REACH. [facility].
--- NOTE | 2018-11-11 00:55 | NUR ---
COMFORT CARE 2315 APPEARS TO BE RESTING. NO ACUTE CHANGES AT THIS TIME. BED IN LOWEST POSITION. CALL LIGHT AND BELONGINGS WITHIN REACH. [facility].
--- NOTE | 2018-11-11 01:42 | NUR ---
COMFORT CARE 0136 APPEARED TO BE RESTING. REPOSITIONED. ATTENDS CHANGED. NO C/O PAIN/DISCOMFORT. BED IN LOWEST POSITION; CALL LIGHT IN REACH. [facility].
--- NOTE | 2018-11-11 03:53 | NUR ---
COMFORT CARE 0350 APPEARS TO BE RESTING. NO ACUTE CHANGES. NO S/SX OF PAIN/DISCOMFORT. BED IN LOWEST POSITION. CALL LIGHT WITHIN REACH. TM.
--- NOTE | 2018-11-11 04:16 | NUR ---
SHIFT SUMMARY A/O, ABLE TO MAKE NEEDS KNOWN. COOPERATIVE WITH CARE. ANSWERS QUESTIONS APPROPRIATELY; SLOW TO RESPOND AT TIMES. C/O PAIN/DISCOMFORT AT BEGINNING OF SHIFT, BUT REFUSED MEDICATION MANAGEMENT WHEN OFFERED. REPOSITIONED AT TIMES. GIVEN A CUP OF THICKENED LIQUIDS IN STYRAFOAM CUP; PATIENT DRANK ENTIRELY. APPEARED TO REST MUCH OF SHIFT. BED REAMINED IN LOWEST POSITION; ALARM ON. CALL LIGHT IN PLACE. WCTM. REPORT TO ONCOMING RN.
--- NOTE | 2018-11-11 06:39 | NUR ---
COMFORT CARE 0610 REPOSITIONED. ATTENDS CHANGED AND CLEANED SEUN AREA. HAIR WASHED. NO ACUTE CHANGES. BED IN LOWEST POSITION. ALARM ON. CALL LIGHT IN PLACE. [facility].
--- NOTE | 2018-11-11 13:54 | NUR ---
met pt. lying in bed confused offered prayers and support.
--- NOTE | 2018-11-11 16:08 | NUR ---
SHIFT SUMMARY- PT DENIES PAIN. DENIES SOB. RESP E/U ON RA. DENIES N/V. TURNS Q2H. PT RESTING PEACEFULLY THIS PM WITH EYES CLOSED. NO OTHER SIGNIFICANT CHANGES THIS SHIFT.
--- NOTE | 2018-11-11 22:09 | NUR ---
COMFORT CARE NOTE PT TOLERATED BED BATH AND SEUN CARE WELL. NO CURRENT COMPLAINTS FROM PT.
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
--- NOTE | 2018-11-12 03:24 | NUR ---
SHIFT SUMMARY PT ATTEMPTED TO GET OUT OF BED AT THE BEGINNING OF THE SHIFT. NO HARM BEFELL PT, AND THE BED ALARM REMAINED ON. OTHER THEN THAT PT HAD AN UNEVENTFUL SHIFT. NO COMPLAINTS OF PAIN OR DISCOMFORT. PT DID HAVE ONE LOOSE STOOL AND WAS BATHED. BED IN LOW POSITION. WILL CONTINUE TO MONITOR.
--- NOTE | 2018-11-12 06:40 | NUR ---
resting quietly on comfort measures, not medicated for anxiety or pain , PT refused HS remeron repeatedly. Incontinet of bowel and bladder despite offering toileting and bedpan use.
--- NOTE | 2018-11-12 09:06 | NUR ---
AM ASSESSMENT- PT LYING IN BED AWAKE. PT DENIES ANY COMPLAINTS AT THIS TIME. LS CLEAR/ DIMINISHED IN THE BASES, ON RA, SUCTION SET UP AT BEDSIDE. LEFT SIDE WEAKNESS, SLURRED SPEECH NOTED. PT ATTEMPTED TO HAVE A DRINK OF WATER AND BEGAN COUGHING. NO EDEMA PRESENT. INCONT OF URINE. NO OTHER COMPLAINTS AT THIS TIME. WILL CONT TO MONITOR.
--- NOTE | 2018-11-12 16:14 | NUR ---
SHIFT SUMMARY- PT COMFORT CARE. DENIES ANY COMPLAINTS T/O THE SHIFT. LS DIMINISHED, ON RA. LEFT SIDED WEAKNESS. GARBED SPEECH. INCONT OF URINE. PT TOOK A FEW SIPS OF WATER BUT BEGAN COUGHING, PT REFUSED MEALS TODAY. TURN Q2H. NO OTHER ACUTE CHANGES T/O SHIFT.
--- NOTE | 2018-11-13 05:34 | NUR ---
SHIFT SUMMARY: 73 Y/O OBESE FEMALE RESTED QUIETLY ALL SHIFT. PT NPO. ATTENDS WET X 1, REPOSITIONED, SPEECH GARBLED, NO VISITORS NOTED, COMFORT CARE MEASURES. PT APPEARS TO BE IN NO PAIN. PTS BED ALARM APPLIED, BED LOW POSITION, CALL LIGHT AT SIDE.
--- NOTE | 2018-11-13 07:59 | NUR ---
AM ASSESSMENT- PT LYING IN BED AWAKE, DENIES ANY PAIN. LS DIMINISHED, MOIST COUGH NOTED, SUCTION SET UP AT BEDSIDE. LEFT SIDED WEAKNESS NOTED. NO IV ACCESS. SKIN C/D/I. NO EDEMA PRESENT. INCONT OF URINE. GARBLED SPEECH. BEDBATH COMPLETED. NO SIGNS OF DISTRESS NOTED. COMFORT CARE PT. WILL CONT TO [facility].
--- NOTE | 2018-11-13 17:01 | NUR ---
SHIFT SUMMARY- COMFORT CARE PT. PT DENIES ANY COMPLAINTS T/O THE SHIFT. PT APPEARS COMFORTABLE. TURN Q2H. LS CLEAR, ON RA. LEFT SIDED WEAKNESS WITH GARBLED SPEECH. PT AWAITING GUARDIANSHIP AND PLACEMENT. NO OTHER ACUTE CHANGES THIS SHIFT.
--- NOTE | 2018-11-13 17:13 | NUR ---
Pt visit this afternoon. Pt is resting in bed with her eyes closed. Offered gentle voice and Pt opens her eyes briefly then closes her eyes again. Pt appears comfortable with no S/S of distress at this time. Spoke with bedside nurse Pamela and she reports no concerns at this time. Palliative Care will remain available.
--- NOTE | 2018-11-14 04:09 | NUR ---
SHIFT SUMMARY: 73 Y/O FEMALE RESTED COMFORTABLY ALL SHIFT, AWAKENS TO VOICE, SPEECH GARBLED, ORAL CARE DONE, NPO, COMFORT CARE, NO GRIMACING OR PAIN NOTICEC, CONTACT PRECAUTIONS MAINTAINBED, BED ALARM APPLIED, BED LOW POSITION, CALL LIGHT AT SIDE.
--- NOTE | 2018-11-14 11:49 | NUR ---
COMFORT CARE NOTE- PT REQUESTED "2 SHOTS OF MORPHINE PLEASE" STAFF ASKED IF THE LAST DOSE OF MORPHINE HELPED THE PAIN AND PT STATED A LITTLE RN OFFERED TO GET ANOTHER DOSE OF MORPHINE AND THE PT REPLIED "I DON'T NEED TO BE STONED" STAFF CLARIFIED THE PT DOES NOT WANT PAIN MEDICATION AT THIS TIME. WILL CTM.
--- NOTE | 2018-11-14 12:58 | NUR ---
COMFORT CARE ASSESSMENT- WHILE REPOSITIONING PT SHE STATED THE PAIN IN HER LEFT NIPPLE IS TOO MUCH. OFFERED PAIN MANAGEMENT MEDS AND PT WAS RECEPTIVE, MEDICATED WITH 5MG ROXANOL. PRN. WILL CTM.
--- NOTE | 2018-11-14 14:41 | NUR ---
COMFORT CARE ASSESSMENT- PT SLOW TO RESPOND, INDICATES PAIN BUT APPEARS COMFORTABLE. PT JUST REPOSITIONED AND CHANGED. NO S&S OF PAIN, ANXIETY OR DISTRESS NOTED AT THIS TIME WILL CTM
--- NOTE | 2018-11-14 17:22 | NUR ---
SHIFT SUMMARY- PT IS ON COMFORT CARE. REPOSITIONING Q2. MEDICATED FOR PAIN TWICE DURING THE SHIFT, SEEMED TO HELP THE PT RELAX. PER REPORT FROM NIGHT RN PT STRICT NPO, CHOKES ON ANYTHING PUT IN HER MOUTH. SHIP'S PILOT ASSISTED THE PT FEEDING HER BREAKFAST LUNCH AND DINNER, WITH THIS ASSISTANCE SHE WAS ABLE TO SAFELY CONSUME HER MEALS. PT HAS PAIN IN HER LEFT BREAST AND RIBS. PT CAN VERBALLY COMMUNICATE BUT VERY QUIETLY, AND SLURRED SPEECH. PT CURRENTLY HAS NO S&S OF PAIN REPOSITIONED AT AROUND 1700.
--- NOTE | 2018-11-15 04:27 | NUR ---
SHIFT SUMMARY: 73 Y/O FEMALE RESTED COMFORTABLY IN BED ALL SHIFT. PT ON COMFORT CARE, TURNED Q2H BY STAFF. PTS SPEECH IS GARBLED. PTS BED ALARM APPLIED, BED LOW POSITION, CALL LIGHT AT SIDE.
--- NOTE | 2018-11-15 07:00 | NUR ---
ASSUMED CARE OF PT- PT CONFUSED BUT REDIRECTABLE STILL ON COMFORT CARE, DENIES THE NEED FOR PAIN MEDICATION AT THE TIME OF SHIFT CHANGE. WILL CTM.
--- NOTE | 2018-11-15 16:40 | NUR ---
COMFORT CARE ASSESSMENT- PT SLEEPING COMFORTABLY, WAS REPOSITIONED PRIOR TO CC ASSESSMENT SO NOT REPOSITIONED AT THE TIME OF ASSESSMENT. PT STATED SHE IS COMFORTABLE, DENIES NEED FOR PAIN MEDICINE.
--- NOTE | 2018-11-15 18:05 | NUR ---
SHIFT SUMMARY- PT HAS HAD NO ACUTE CHANGES T/O THE SHIFT. SHE DOES FREQUENTLY HALLUCINATE, BELIEVES THE NURSING STAFF ARE NUNNS WHO ARE TOUCHING HER INAPPROPRIATELY WHEN STAFF ARE CHANGING HER. LATER THIS AFTERNOON SHE WAS MORE AWARE, STAFF ATTEMPTED TO FEED THE PT, IT TOOK 10 MINUTES FOR THE PT TO CHEW A BITE OF MECHANICAL SOFT FOOD AND SHE BEGAN COUGHING, PT ATE MINIMALLY TODAY. PT DECLINED THE NEED FOR PAIN MEDICATION. PT IS A Q2 TURN AND USUALLY NEEDS TO BE CHANGED FROM INCONTINENT VOIDS AT THAT TIME. PT ORIENTED TO SELF ONLY. CALL LIGHT IN REACH, PT DOES NOT CALL APPROPRIATELY, BED ALARM SET FOR PT SAFETY. FREQUENT ROUNDING.
--- NOTE | 2018-11-15 20:41 | NUR ---
11/15/181999 DENIES ANY S/S OR DISCOMFORT. REPOSITIONED IN BED.
--- NOTE | 2018-11-16 03:53 | NUR ---
11/16/18 0330 SLEEPING WELL WITHOUT SIGNS OF DISCOMFORT OR DISTRESS. REPOSITIONED AND ORAL CARE GIVEN.
--- NOTE | 2018-11-16 06:35 | NUR ---
11/16/18 0545 PT HAS DENIED ANY DISCOMFORT OF OTHER S/S THIS SHIFT. REPOSITIONED Q 2 HOURS WITH ORAL AND SEUN-CARE GIVEN.
--- NOTE | 2018-11-16 13:46 | NUR ---
time with patient denes discomfort. 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 oral care and repositioning. Very weak and frail coughs with oral care. Asked what she likes on TV relayed no news shows and used profanity. put on baseball game it was soothing to her she watched it intently. Will advise nursing.
--- NOTE | 2018-11-16 19:26 | NUR ---
SHIFT SUMMARY- PT HAS SLEPT FAR MORE TODAY THAN PREVIOUS DAYS, SHE HAD A LOT OF LUNCH (FOR HER INTAKE) AND HAS BEEN SLEEPING SOUNDLY SINCE THEN. SOME CHANGES WERE NOTED IN HER BREATHING SLIGHT 10-15 SECOND PAUSES WERE NOTED IRREGULARLY. SPOKE TO PALLIATIVE CARE THEY ARE AWARE. PT STILL DENIES PAIN AT THIS TIME. PASSED ON IN REPORT TO NIGHT NAI DAVIDSON.
--- NOTE | 2018-11-16 22:12 | NUR ---
11/16/18 2210 VERY LETHARGIC. NO ANSWER WHEN ASKED IF HAVING PAIN. NO SIGNS OF DISCOMFORT NOTED. ORAL AND SEUN-CARE GIVEN WITH ROUTINE ROUNDS.
--- NOTE | 2018-11-17 04:27 | NUR ---
11/17/18 0400 Awake and requesting water to drink. [place] thick water given in sip cup. Repositioned and harriet-care given. Denies pain or distress.
--- NOTE | 2018-11-17 14:39 | NUR ---
PATIENT ALERT TO SELF. GARBLED SPEECH. POOR APPETITE. TURNED Q 2 HOURS. REFUSES PAIN MEDS. GOOD PERICARE. BREATHING UNLABORED. COMFORT CARE. WCTM.
--- NOTE | 2018-11-18 00:20 | NUR ---
11/17/18 1950 PT WITH MOUTH FULL--POCKETING FOOD ITEMS FROM DINNER. MANUALLY REMOVED FOOD AND SUCTIONED FOOD PARTICLES FROM DEEPER IN MOUTH. ORAL CARE GIVEN WITH SWABS/BRUSH BY FRAME HAND. REPOSITIONED AND BRIEFS CHANGED FROM VOIDING. DENIES ANY PAIN WITH "NO" ANSWER. DIET CHANGED TO FULL LIQUIDS ONLY.
--- NOTE | 2018-11-18 04:04 | NUR ---
11/18/18 0400 Pt ran call [facility] and requested water to drink. Sip cup given with water and RN observed drinking. She drank all of water. Denies pain. Very talkative this AM. Lying on left side with pillows for support.
--- NOTE | 2018-11-18 06:37 | NUR ---
11/18/18 0610 AWAKE AND TAKING SIPS OF FLUIDS UNDER SUPERIVION. VERY TALKATIVE WITH STAFF THIS EARLY AM. WANTING "A NEW BODY" AND SMILING. REPOSITIONED AFTER BRIEF CHANGE FOR INCONTINENCE. DENIES PAIN.
--- NOTE | 2018-11-18 13:52 | NUR ---
PATIENT SLEEPING MOST OF SHIFT. DENIES PAIN. SUPERVISED WHEN EATTING PATIENT AT TIMES POCKETS FOOD. WCTM.
--- NOTE | 2018-11-18 14:58 | NUR ---
Pt visit this afternoon. Pt is resting in bed with her eyes closed and appears comfortable. Pt opens her eyes with soft gentle voice then closes her eyes immdiately. Offer therapeutic touch and asked Pt about comfort with no response. Palliative Care will remain available.
--- NOTE | 2018-11-18 17:07 | NUR ---
ALERT TO SELF. TURNED Q 2 HOURS. BRIEFS CHANGED PRN. UNLABORED RESPIRATIONS. DENIES PAIN. APPEARS COMFORTABLE. WCTM.
--- NOTE | 2018-11-19 04:26 | NUR ---
SHIFT SUMMARY PT HAD NO COMPLAINTS DURING THE SHIFT. WATER GIVEN PER PT REQUEST. PT STATED SHE WAS COMFORTABLE. INCONTINCE CHECKS DONE PERIODICALLY. NO SKIN BREAKDOWN NOTED. PT REMAINED SAFE DURING SHIFT. WILL CONTINUE TO MONITOR.
--- NOTE | 2018-11-19 16:45 | NUR ---
ALERT. DENIES PAIN. TURNED Q 2 HOURS. BRIEFS CHANGED PRN. SUPERVISED WHEN EATTING. USES SIPPY CUP W/NECTAR THICKEN FLUID WITHOUT DIFFICULTY. UNLABORED RESPIRATIONS. WCTM.
--- NOTE | 2018-11-20 05:11 | NUR ---
SHIFT SUMMARY PT WAS LESS INTERACTIVE THIS SHIFT, BUT APPEARED TO BE COMFORTABLE. NO COMPLAINTS WERE MADE. INCONTINENCE CARE PROVIDED WHEN NECESSARY. WILL CONTINUE TO MONITOR.
--- NOTE | 2018-11-20 07:58 | NUR ---
NO C/O PAIN; PT IN NO APPARENT DISTRESS. NO DYSPNEA/SOB/SECRETIONS. NO FAMILY MEMBERS PRESENT. REPOSITIONED. WCTM.
--- NOTE | 2018-11-20 11:46 | NUR ---
NO C/O PAIN; PT IN NO APPARENT DISTRESS. NO DYSPNEA/SOB/SECRETIONS. NO FAMILY PRESENT. REPOSITIONED. WCTM.
--- NOTE | 2018-11-20 11:47 | NUR ---
NO C/O PAIN; PT IN NO APPARENT DISTRESS. NO DYSPNEA/SOB/SECRETIONS. NO FAMILY MEMBERS PRESENT. REPOSITIONED. WCTM,
--- NOTE | 2018-11-20 14:33 | NUR ---
NO C/O PAIN. NO DYSPNEA/SOB/SECRETIONS. NO FAMILY PRESENT. WCTM.
--- NOTE | 2018-11-20 14:33 | NUR ---
NO C/O PAIN. NO DYSPNEA/SOB/SECRETIONS. NO FAMILY MEMBERS PRESENT. REPOSITIONED. WCTM.
--- NOTE | 2018-11-20 16:47 | NUR ---
PT IN NO APPARENT DISTRESS. NO DYSPNEA/SOB/SECRETIIONS. PT REPOSITIONED. NO FAMILY PRESENT. WCTM.
--- NOTE | 2018-11-20 18:05 | NUR ---
SHIFT SUMMARY: NO ACUTE CHANGES TO REPORT THIS SHIFT. COMFORT CARE MEASURES IN EFFECT. NO C/O PAIN THIS SHIFT. AWAITING PLACEMENT. WCTM.
--- NOTE | 2018-11-21 01:36 | NUR ---
SHIFT SUMMARY PT WAS WITHOUT COMPLAINT THIS SHIFT, OTHER THEN WANTING MORE WATER. THICKENED LIQUIDS WERE PROVIDED TO PATIENT. COMFORT MEASURES MAINTAINED. WILL CONTINUE TO MONITOR PT.
--- NOTE | 2018-11-21 07:38 | NUR ---
PT IN NO APPARENT DISTRESS; NO C/O PAIN. NO DYSPNEA/SOB/SECRETIONS. NO FAMILY MEMBERS PRESENT. WCTM.
--- NOTE | 2018-11-21 09:43 | NUR ---
PT IN NO APPARENT DISTRESS; NO C/O PAIN. NO DYSPNEA/SOB/SECRETIONS. NO FAMILY PRESENT. WCTM.
--- NOTE | 2018-11-21 12:53 | NUR ---
NO C/O PAIN. NO DYSPNEA/SOB/SECRETIONS. NO FAMILY PRESENT. REPOSITIONED. WCTM.
--- NOTE | 2018-11-21 14:36 | NUR ---
Visited with Sherlyn this afternoon. She is watching a news program on TV and reports "I'm sick and tired of Abdirizak Boothe!" When asked how she was, she responded that she was still alive. She reports that her fingernails are dirty and this upsets her. She states she has always had short fingernails because she plays the piano. Cleaned underneath all of her fingernails with a cotton q-tip and water. She was very appreciative of this. Her speech is difficult to understand, however she is able to communicate her needs. Requested water, thickened water in a sippy cup provided. Pt asked why she can't have a pitcher of regular water. She she cough and after taking sips of thickened water. Explained the CVA and how it has affected her swallow. 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 No further requests. Pt repositioned with pillows in bed. Nursing updated on PC visit with pt.
--- NOTE | 2018-11-21 15:08 | NUR ---
NO C/O PAIN. NO DYSPNEA/SOB/SECRETIONS. NO FAMILY PRESENT. WCTM.
--- NOTE | 2018-11-21 18:06 | NUR ---
NO C/O PAIN. NO DYSPNEA/SOB/SECRETIONS. NO FAMILY MEMBERS PRESENT. WCTM.
--- NOTE | 2018-11-21 18:11 | NUR ---
SHIFT SUMMARY: NO ACUTE CHANGES TO REPORT THIS SHIFT. COMFORT CARE MEASURES CONTINUING. NO C/O PAIN THIS SHIFT. PT ON BEDREST R/T HX CVA. WCTM.
--- NOTE | 2018-11-21 19:07 | NUR ---
ASSUMING CARE OF PT, COMFORT CARE STATUS MAINTAINED. PT IS RESTING COMFORTABLY IN BED AT THIS TIME. WILL CONT TO MONITOR.
--- NOTE | 2018-11-21 21:04 | NUR ---
PT NAVING EXCESS SECRETIONS AND WET LUNG SOUNDS. SUCTIONED PT TO CLEAR SECRETIONS. PT CONT TO REST COMFORTABLY IN BED, WILL CONT TO MONITOR.
--- NOTE | 2018-11-22 00:47 | NUR ---
PT RESTING COMFORTABLY IN BED. NO PAIN, EXCESSIVE SECRETIONS, N/V. PT HAS BEEN SLEEPING ALL NIGHT AND FLUTTERS EYES TO NAME. WILL CONT TO MONITOR.
--- NOTE | 2018-11-22 02:30 | NUR ---
PT CONT TO REST IN BED, AROUSABLE TO VERBAL COMMANDS. DENIES PAIN, N/V, ANXIETY. PRN SUCTIONING. WILL CONT TO MONITOR.
--- NOTE | 2018-11-22 05:51 | NUR ---
SHIFT SUMMARY: COMFORT CARE MEASURES MAINTAINED. PT RESTS THROUGHOUT THE NIGHT, AROUSES TO VERBAL STIMULI. ABLE TO ANSWER YES/NO QUESTIONS. PT WITH EXCESS ORAL SECRETIONS, PRN SUCTIONING. PT DENIES ANY PAIN/DISCOMFORT, ANXIETY, N/V. Q2H TURNS IMPLEMENTED. PT HAS LARGE LOOSE BM AND VOIDS SEVERAL TIMES TONIGHT. NO OTHER CHANGES TO REPORT. WILL CONT TO MONITOR AND PROVIDE CARE UNTIL PRESUMED BY ONCOMING RN.
--- NOTE | 2018-11-22 10:46 | NUR ---
ORAL CARE COMPLETED
--- NOTE | 2018-11-22 14:46 | NUR ---
Pt visit this afternoon. Pt is resting in bed upon arrival. Pt does not respond verbally. Excess secretions noted with thick sputum accumilating in her mouth. Provided oral care with toothettes. Pt appears comfortable with no other S/S of distress at this time. Spoke with bedside nurse Jorge and she reports placing scopolamine patch recently. Discussed the possibility of Atropine if scopolamine is not beneficial. Palliative Care will remain available.
--- NOTE | 2018-11-22 16:55 | NUR ---
SHIFT SUMMARY: PT HAS BEEN ALERT TO SELF THIS SHIFT WITH NO C/O OR S/S OF PAIN OR DISCOMFORT. SHE DID HAVE INCREASED SECRETIONS THAT WERE NOT CLEARED COMPLETELY WITH ORAL CARE AND SCOPOLAMINE PATCH WAS APPLIED ORDERED AND SEEMS TO HAVE BEEN EFFECTIVE. LUNGS SOUNDS REMAIN WET WITH A PRODUCTIVE COUGH. PT CONTINUES TO BE TOTAL CARE FOR ALL ADLS AND RE-POSITIONING. PT REMAINS INC. NURSING CONTINUES TO TURN/RE-POSITION FREQUENTLY. ORAL CARE PROVIDED FREQUENTLY THROUGHOUT SHIFT. FREQUENT CARE ROUNDING.
--- NOTE | 2018-11-22 18:59 | NUR ---
PT RESTING IN BED DENIES PAIN, N/V, ANXIETY, OR DISCOMFORT. SCOPOLAMINE PATCH BEHIND R EAR FOR EXCESS SECRETIONS. COMFORT CARE STATUS MAINTAINED. WILL CONT TO MONITOR AND PROVIDE COMFORT MEASURES.
--- NOTE | 2018-11-22 21:30 | NUR ---
ORAL CARE PERFORMED PT HAS EXCESSIVE SECRETIONS. WARM TO TOUCH; FAN AT BEDSIDE TO COOL PT. DENIES N/V, PAIN, OR ANXIETY. PT RESTING IN BED, FLUTTERS EYES TO NAME. WILL CONT TO MONITOR.
--- NOTE | 2018-11-23 06:27 | NUR ---
SHIFT SUMMARY COMFORT CARE MEASURES MAINTAINED TONIGHT. PT IS ASLEEP THRU THE NIGHT, FLUTTERS EYES TO NAME AND NODS YES/NO. PT DENIES ANY PAIN, DISCOMFORT, ANXIETY, N/V. SCOPOLAMINE PATCH TO R EAR FOR EXCESS SECRETIONS, PRN SUCTION AND ORAL CARE PERFORMED IN ADDITION. Q2H TURNS PT ALLOWS, PT REFUSED LAST TURNING STATING "IM COMFORTABLE". WILL CONT TO MONITOR AND PROVIDE COMFORT MEASURES UNTIL PRESUMED BY ONCOMING RN.
--- NOTE | 2018-11-23 15:44 | NUR ---
Pt visit this afternoon. Pt is resting in bed and denies pain at this time. Asked Pt how she is doing and Pt states "I am alive". Pt reports no concerns at this time. Spoke with bedside nurse Jorge and she reports scopolamine is managing secretions. No concerns reported at this time. Palliative Care will remain available.
--- NOTE | 2018-11-23 16:48 | NUR ---
SHIFT SUMMARY: PT HAS BEEN RESTING IN BED THIS SHIFT AT BASELINE AND C/O PAIN X 1. TYLENOL WAS GIVEN ORDERED AND WAS EFFECTIVE. SECRETIONS HAVE DECREASED SINCE YESTERDAY AND FREQUENT ORAL CARE WAS PROVIDED. PALLATIVE CARE VISITED PT TODAY. PT CONTINUES TO NEED TO CARE FOR ALL ADLS WITH FREQUENT ROUNDING AND RE-POSITIONING.
--- NOTE | 2018-11-23 19:06 | NUR ---
PT IS COMFORT CARE STATUS. CURRENTLY RESTING IN BED, DENIES ANY PAIN, N/V, ANXIETY, OR DISCOMFORT AT THIS TIME. SCOPOLAMINE PATCH TO R EAR FOR EXCESS SECRETIONS. ASSUMING CARE OF PT.
--- NOTE | 2018-11-23 22:06 | NUR ---
NO ACUTE CHANGES, PT RESTING IN BED. SECRETIONS WELL CONTROLLED, ORAL CARE PROVIDED PRN. RESPIRATIONS REGULAR. DENIES PAIN OR DISCOMFORT. WILL CONT TO MONITOR.
--- NOTE | 2018-11-23 23:39 | NUR ---
PT WAKES, REQUESTS WATER. WATER PROVIDED NECTAR THICK. DENIES ANY OTHER NEEDS. DENIES PAIN, DISCOMFORT, ANXIETY, OR N/V. WILL CONT TO MONITOR.
--- NOTE | 2018-11-24 02:54 | NUR ---
REPOSITIONED, ATTENDS CHANGED. SUCTIONED PT FOR EXCESS SECRETIONS. NO OTHER CHANGES.
--- NOTE | 2018-11-24 04:09 | NUR ---
SHIFT SUMMARY COMFORT CARE STATUS, PT DENIES ANY PAIN OR DISCOMFORT. COMFORTABLY SLEEPING TONIGHT WITH Q2H TURNS AND CHECK/CHANGES. PT IS MORE CONVERSATIONAL TONIGHT, REQUESTS WATER AND ASKS FOR A BLANKET. NO OTHER CHANGES. WILL CONT TO MONITOR AND PROVIDE CARE UNTIL PRESUMED BY ONCOMING RN.
--- NOTE | 2018-11-24 13:40 | NUR ---
Pt visit this afternoon. Pt resting in bed and appears comfortable. Pt denies pain. Proveded oral care with toothettes. Offered sip of water and Pt coughed imediately. Pt states she is hungry and wants food. UNDERWEAR HEMMER will offere food. Mild secretions noted with cough. Will discuss with bedside nurse if alternate medications would be beneficial for secretions. Palliative Care will remain available.
--- NOTE | 2018-11-24 17:14 | NUR ---
SHIFT SUMMARY: PT HAS BEEN ALERT TO BASELINE WITH NO C/O PAIN. PT HAS BEEN RE-POSITIONED AND ASSISTED WITH TOILETING EVERY 2 HOURS. PT REMAINS INC OF B/B. PT CONTINUES TO HAVE ORAL SECRETIONS AND WAS ABLE TO EXPECTORATE SOME THIS AFTERNOON. NURSING CONTINUES TO ROUND FREQUENTLY.
--- NOTE | 2018-11-24 19:49 | NUR ---
COMFORT CARE 1855 INTRODUCTIONS. PATIENT A/O, SPEAKING IN FULL SENTENCES WITH SPEECH A BIT GARBLED. NO C/O PAIN/DISCOMFORT AT THIS TIME. BED IN LOWEST POSITION. CALL LIGHT AND BELONGINGS WITHIN REACH. TM.
--- NOTE | 2018-11-25 01:10 | NUR ---
COMFORT CARE 2044 A/O, ABLE TO MAKE NEEDS KNOWN. GARBLED LANGUAGE NOTED. WATCHING TV. DID NOT EXPRESS ANY NEEDS. WCTM. BED IN LOWEST POSITION. CALL LIGHT AND BELONGINGS WITHIN REACH.
--- NOTE | 2018-11-25 01:12 | NUR ---
COMFORT CARE 2315 A/O, ABLE TO MAKE NEEDS KNOWN. UP TO 90 DEGREES; SIPPING ON WATER FROM SIPPY CUP. LOTS OF SECRETIONS. TURNED/REPOSITIONED. BEDDING CHANGE WELL ATTENDS CHANGE. ORAL CARE COMPLETED. NO C/O PAIN/DISCOMFORT. WCTM. BED IN LOWEST POSITION. CALL LIGHT AND BELONGINGS WITHIN REACH.
--- NOTE | 2018-11-25 01:14 | NUR ---
COMFORT CARE 0105 APPEARS TO BE RESTING. WCTM. BED IN LOWEST POSITION. CALL LIGHT AND BELONGINGS WITHIN REACH.
--- NOTE | 2018-11-25 04:25 | NUR ---
SHIFT SUMMARY A/O, ABLE TO MAKE NEEDS KNOWN. GARBLED/GURGLED SPEECH. STATED THIS AM THAT HE BUTTOCK WAS HURTING A LITTLE; STATED WANTED A NEW PAD (PROTECTIVE DRESSING) PLACED. RE-POSITION CONCURRENT WITH ATTENDS CHECKS. ORAL CARE PREFORMED. APPEARED TO REST OFF AND ON. NO ACUTE CHANGES NOTED. BED REMAINES IN LOWEST POSITION; ALARM ON. CALL LIGHT IN REACH AND BELONGINGS WITHIN REACH. WCTM. REPORT TO ONCOMING RN.
--- NOTE | 2018-11-25 06:55 | NUR ---
COMFORT CARE 0540 A/O, ABLE TO MAKE NEEDS KNOWN; GARBLED SPEECH. THICK SECRETIONS; REQUIRES SUCTION. COOPERATIVE WITH CARE. NO C/O PAIN. ROUTINE RE-POSITIONING AND ATTENDS CHECKS. WCTM. BED IN LOWEST POSITION; ALARM ON. CALL LIGHT AND BELONGINGS WITHIN REACH.
--- NOTE | 2018-11-25 18:45 | NUR ---
SHIFT SUMMARY PT IN BED THROUGH DAY. FEEDING HERSELF AND REQUESTING FOOD SHE LIKES. IS ON PUREED FOOD AND THICKENED LIQUIDS. COUGHED WITH A SMALL AMOUNT OF WATER. NO COMPLAINTS OF PAIN OR NAUSEA.
--- NOTE | 2018-11-26 05:06 | NUR ---
NOC SHIFT SUMMARY PT IN BED THIS NIGHT. SLEPT OFF AND ON. WAS TURNED THROUGHOUT NIGHT. NO COMPLAINTS OF PAIN OR DISCOMFORT. APPEARS IN NO ACUTE DISTRESS. PRESENTLY APPEARS TO BE SLEEPING WITH RESP EVEN AND UNLABORED. WILL CONTINUE TO MONITOR.
--- NOTE | 2018-11-26 14:30 | NUR ---
Pt visit this afternoon. Pt is resting in bed with he eyes closed. Pt opens her eyes briefly with verbal stimuli but quickley closes them. mild to moderate secretions noted when Pt takes deep breathes. Will discuss case with bedside nurse. Pt may benefit from Atropine to help with secretions. Palliative Care will remain available.
--- NOTE | 2018-11-26 18:42 | NUR ---
SHIFT SUMMARY PT SITTING UP IN BED TO EAT MEALS. ABLE TO FEED HERSELF. NAPPED THIS AFTERNOON. PALLIATIVE CARE IN TO SEE HER THIS AFTERNOON. NO COMPLAINTS OR DENIED PAIN OR DISTRESS THROUGH SHIFT.
--- NOTE | 2018-11-27 05:01 | NUR ---
SHIFT SUMMARY: PT IS LETHARGIC EARLY IN THE SHIFT, BECOMES MORE ALERT THE NIGHT PROGRESSES. PT IS VERBALLY RESPONSIVE BUT DIFFICULT TO UNDERSTAND. PT NOT OUT OF BED OVERNIGHT, TURNS Q2H AND CHANGES NEEDED. PT SHOWS NO S/S FOR PAIN, NAUSEA, VOMITING, OR SOB. PT SLEPT INTERMITTENTLY THROUGHOUT THE NIGHT. NO ACUTE CHANGES. WILL CONTINUE TO MONITOR.
--- NOTE | 2018-11-28 04:21 | NUR ---
SHIFT SUMMARY: PT IS ALERT, LETHARGIC AT TIMES. PT TURNED Q2H AND CHANGED NEEDED, INCONTINENT. PT SLEPT INTERMITTENTLY THROUGHOUT THE NIGHT. PT SHOWS NO S/S FOR PAIN, NAUSEA, VOMITING, OR SOB. NO ACUTE CHANGES OR COMPLICATIONS THIS SHIFT. WILL CONTINUE TO MONITOR.
--- NOTE | 2018-11-28 09:45 | NUR ---
MORNING ASSESSMENT: PATIENT RESTING IN BED WATCHING TV. WHEN ASKED HOW SHE WAS DOING THIS MORNING, SHE RESPONDED WITH, "I'M ALIVE". DENIES PAIN OR DISCOMFORT. REQUESTING MORE WATER. DENIES NEEDS AT THIS TIME. SPEECH IS GARBLED AND DIFFICULT TO UNDERSTAND AT TIMES. PATIENT INDEPENDENT WITH RIGHT ARM WITH DRINKING AND EATING.
--- NOTE | 2018-11-28 18:48 | NUR ---
END OF SHIFT SUMMARY: NO SIGNS OR SYMPTOMS OF PAIN OR DISCOMFORT THROUGHOUT THE DAY. PATIENT DOES HAVE A WET COUGH AT TIMES. PATIENT IS COOPERATIVE WITH SUCTION. PATIENT CALM THROUGHOUT THE DAY. PATIENT SPEECH IS GARBLED AND INCOMPREHENSIBLE MUCH OF THE TIME.
--- NOTE | 2018-11-29 03:45 | NUR ---
SHIFT SUMMARY PATIENT ON COMFORT CARE. AXO X2 WITH INCOMPREHENSIBLE GARBLED SPPECH. NO IV ACCESS. CONTACT PRECAUTIONS. NO S/S OF PAIN, SOB, AND N/V. REQUESTED WATER. LETHARIC T/O THE SHIFT. TURNED Q2 AND CHANGED NEEDED. SLEEPING AT SHIFT CHANGE AND UP INTERMITTENTLY. BED ALARM ACTIVATED. CALL LIGHT IN REACH. WILL CONTINUE TO MONITOR UNTIL DAY SHIFT NURSE ASSUMES CARE.
--- NOTE | 2018-11-29 07:46 | NUR ---
PATIENT IN NO DISTRESS. WATCHING TV AT THIS TIME. REPOSITIONED IN BED. CALL LIGHT WITHIN REACH.
--- NOTE | 2018-11-29 15:09 | NUR ---
PATIENT WAS CHOKING WITH HER MEAL AND HAD TO BE FED BY STAFF. SHE DID ALRIGHT WITH THE PUREED FOOD ONCE FED BY NURSE BUT CONTINUES TO CHOKE ON ANY LIQUIDS , THICKEND OR NOT.
--- NOTE | 2018-11-29 17:07 | NUR ---
ASSISTED PATIENT WITH LUNCH.
--- NOTE | 2018-11-29 17:08 | NUR ---
PATIENT FED BY STAFF. LINENS CHANGED
--- NOTE | 2018-11-29 18:21 | NUR ---
NO ACUTE CHANGES TO PATIENT .
--- NOTE | 2018-11-30 03:14 | NUR ---
SHIFT SUMMARY PATIENT ON COMFORT CARE. NO CHANGES OBSERVED. PATIENT SLEPT MOST OF THE SHIFT. TURNED Q2. REMAINS LETHARGIC. CALL LIGHT IN REACH. BED IN LOWEST POSITION. WILL CONTINUE TO MONITOR UNTIL DAY SHIFT NURSE ASSUMES CARE.
--- NOTE | 2018-11-30 07:47 | NUR ---
SLEEPING AT THIS TIME.
--- NOTE | 2018-11-30 09:53 | NUR ---
NURSE ASSISTED PATIENT WITH BREAKFAST.
--- NOTE | 2018-11-30 12:06 | NUR ---
PATIENT SLEEPING , NO DISTRESS NOTED.
--- NOTE | 2018-11-30 18:29 | NUR ---
PATIENT WAS FED BY NURSE.
--- NOTE | 2018-11-30 18:30 | NUR ---
NO ACUTE CHANGES. PATIENT THINKS THIS NURSE IS CRAZY AND HAD NO PROBLEM TELLING HER SO. PATIENT WAS IN GOOD MOOD THIS SHIFT.
--- NOTE | 2018-11-30 23:13 | NUR ---
PATIENT RESTING. WILL CONTINUE TO MONITOR.
--- NOTE | 2018-12-01 03:40 | NUR ---
SHIFT SUMMARY COMFORT CARE PATIENT BEDFAST. NO CHANGES OBSERVED. Q2 TURNS. SLEPT MOST OF THE SHIFT. DENIES PAIN, SOB, AND AND N/V. NO IV ACCESS. CALL LIGHT IN REACH. BED IN LOWEST POSITION. WILL CONTINUE TO MONITOR UNTIL DAY SHIFT NURSE ASSUMES CARE.
--- NOTE | 2018-12-01 07:41 | NUR ---
AM NOTE PT LAYING IN BED QUIETLY. NO COMPLAINTS OF PAIN OR SHORTNESS OF BREATH. PT APPEARS COMFORTABLE. NO MOANING OR GRIMACING NOTED AT THIS TIME. WILL CONTINUE TO MONITOR FOR COMFORT. CALL LIGHT IN REACH.
--- NOTE | 2018-12-01 11:15 | NUR ---
Pt visit this AM. Pt is resting in bed with her eyes closed. She appears comfortable with no S/S of distress at this time. Palliative Care will remain available.
--- NOTE | 2018-12-01 18:13 | NUR ---
SHIFT SUMMARY PT HAS HAD NO COMPLAINTS THIS SHIFT. PT HAS BEEN SLEEPING A LOT OF THE SHIFT. NO ACUTE CHANGES THIS SHIFT. CALL LIGHT IN REACH. WILL CONTINUE TO MONITOR AND REPORT TO ONCOMING RN.
--- NOTE | 2018-12-01 21:06 | NUR ---
PATIENT SLEEPING. NO DISTRESS NOTED.
--- NOTE | 2018-12-01 22:07 | NUR ---
REPOSITIONED PATIENT TO LEFT SIDE. CHANGED BRIEF, PT INCONTINENT OF URINE, HAD BM SMEAR. DOES NOT APPEAR TO BE IN PAIN.
--- NOTE | 2018-12-02 02:17 | NUR ---
REPOSITIONED PATIENT IN BED. OFFLOADED WITH A PILLOW UNDER EACH SIDE. BRIEF WAS DRY. NO COMPLAINTS OF PAIN NOTED
--- NOTE | 2018-12-02 04:41 | NUR ---
REPOSITIONED PATIENT AND CHANGED BRIEF. ORAL CARE PROVIDED.
--- NOTE | 2018-12-02 06:01 | NUR ---
SHIFT SUMMARY PATIENT OPENS EYES WHEN STAFF TALKS TO PATIENT. REPOSITIONED THROUGHOUT THE NIGHT. ORAL CARE PROVIDED. NO NEW CHANGES IN STATUS.
--- NOTE | 2018-12-02 18:03 | NUR ---
SHIFT SUMMARY PT HAS HAD NO ACUTE CHANGES THIS SHIFT. NO COMPLAINTS OF PAIN OR DISCOMFORT. PT SLEEPING A LOT OF THE SHIFT. CALL LIGHT IN REACH. WILL CONTINUE TO MONITOR AND REPORT TO ONCOMING RN. BED ALARM ON FOR SAFETY.
--- NOTE | 2018-12-03 05:40 | NUR ---
SHIFT SUMMARY PT IS A 73 Y/O FEMALE, ADMITED FOR ACUTE CVA, AND CURRENTLY ON COMFORT CARE. SHE IS A&O X SELF, AND ON BEDREST. PT IS A&O X SELF, WITH GARBLED AND DIFFICULT TO UNDERSTAND SPEECH. NO S/SX OF PAIN OR DISCOMFORT DURING THE NIGHT, AND PT SLEPT WELL DURING THE NIGHT. NO ACUTE CHANGES IN PT CONDITION NOTED. WILL CONTINUE TO MONITOR AND TREAT PER EMAR UNTIL HAND OFF TO DAY SHIFT.
--- NOTE | 2018-12-03 10:18 | NUR ---
PT TRANSFERRED TO ROOM 329 FROM ROOM 349. REPORT GIVEN TO DIANE GIRON RN AT BEDSIDE.
--- NOTE | 2018-12-03 10:18 | NUR ---
RECEIVED PT VIA STRETCHER FROM SCU. BED LOW AND IN LOCKED POSITION CALL LIGHT WITHIN REACH. RECEIVED REPORT FROM NAI DANIEL. PT AWAKE, ALERT AND IN NO ACUTE DISTRESS.
--- NOTE | 2018-12-03 12:21 | NUR ---
PATIENT DECLINED LUNCH TRAY WHEN IT WAS OFFERED. SHE SAID SHE WAS NOT HUNGRY. RN NOTIFIED.
--- NOTE | 2018-12-03 14:07 | NUR ---
PT RESTING WITH EYES CLOSED EASILY AROUSED BY VERBAL STIMULI. REPOSITIONED OFF BONY PROMINENCES.
--- NOTE | 2018-12-03 16:26 | NUR ---
PT RESTING ON LEFT SIDE; AWAKE; ANSWERS YES, NO QUESTIONS AT TIMES. DENIES ANY PAIN OR DISTRESS. NO PO INTAKE TODAY. REFUSING OFFERS FOR SIPS OR SNACKS.
--- NOTE | 2018-12-03 17:02 | NUR ---
Pt visit this afternoon. Pt resting in bed and denies pain at this time. She appears comfortable with no S/S of distress at this time. Offered gentle voice and therapeutic touch. Discussed the sun shining outside and Pt states "It's a beautiful day". Pt states "I'm thirsty". Offered sips of water and Pt coughed after 2nd sip. Pt agreeable to break from taking sips. No concerns reported at this time. Palliative Care will remain available.
--- NOTE | 2018-12-03 18:15 | NUR ---
ABLE TO TAKE SMALL SIPS OF WATER. MOUTH CARE GIVEN. APPEARS IN NO ACUTE DISTRESS. PALLIATIVE CARE VISIT COMPLETED.
--- NOTE | 2018-12-03 18:18 | NUR ---
PATIENT WAS CHECKED AND ATTEMDS WERE CLEAN AND DRY.
--- NOTE | 2018-12-03 18:21 | NUR ---
SHIFT SUMMARY COMFORT CARE. ANSWERS QUESTIONS WITH ONE WORD OR VERY SHORT SLURRED SENTENCES. TAKING SIPS OF WATER. REFUSED MEALS. [id number]. HX CVA. NO VISITORS TODAY.
--- NOTE | 2018-12-04 04:03 | NUR ---
SUMMARY: COMFORT CARE REMAINS IN PLACE W/TURN SCHEDULE MAINTAINED AND ATTENDS CHANGES PRN. MEPILEX IS C/D/I FOR SACRUM REDNESS AND SBD PREVENTION. MOUTH CARE ATTENDED TO AND PT TOLERATED SIPS OF WATER. SHE ANSWERS MOSTLY BY NODDING HER HEAD AND W/ONE WORD ANSWERS. SHE REFUSED HS MEDS AND DIDN'T HAVE ANY VISITORS THIS SHIFT. NO ACUTE CHANGES AND GUARDIANSHIP IS PENDING.
--- NOTE | 2018-12-04 10:11 | NUR ---
PT AWAKE AND TAKING SIPS OF WATER AND TANZANIAN BROS. PROVIDING PO FLUIDS ONLY WITH SUPERVION SEVERAL TIMES AN HOUR. DENIES ANY PAIN. APPEARS IN NO ACUTE DISTRESS. POTENTIAL GUARDIAN TO VISIT THIS A.M. ISELA HAYWARD AWARE. APPEARS QUITE COMFORTABLE.
--- NOTE | 2018-12-04 15:56 | NUR ---
Pt visit this afternoon. Pt resting in bed with her eyes closed. Pt appears comfortable with no S/S of distress at this time. Palliative Care will remain available.
--- NOTE | 2018-12-05 04:46 | NUR ---
SHIFT SUMMARY: 73 Y/O FEMALE RESTED COMFORTABLY ALL SHIFT, MUMBLES INCOHERENT WORDS AT TIMES, REPOSITIONED Q2H BY STAFF, NO GROANING OR S/S OF PAIN OR NAUSEA NOTED, COMFORT CARE CONTINUED, BED ALARM APPLIED, BED LOW POSITION, CALL LIGHT AT SIDE.
--- NOTE | 2018-12-05 08:00 | NUR ---
PT IS COMFORT CARE. LYING IN BED. MUMBLES INCOHEARANTLY. PRESENTS RELAXED, NO DISTRESS NOTED. IS INCONT. TURNED AND CHECKED FOR DRYNESS, CDI AT THIS TIME. NO FAMILY NOTED. BED IN LOW POSITOIN, CALL LITE IN REACH, BED ALARM ON FOR SAFETY
--- NOTE | 2018-12-05 14:53 | NUR ---
PT RESTING RESP EASY, UNLABORED, EYES CLOSED. DID NOT AWAKEN
--- NOTE | 2018-12-05 17:15 | NUR ---
PT ON COMFORT CARE. DID AWAKEN FOR LUNCH, BUT NOT MUCH INTERESTED IN EATING. PT DID MUMBLE INCOHEARANTLY WITH LAST REPOSITIONING THIS AFT. POINTED TO WALL TOWARDS TV. MORE MUMBLING. MAY EAT SOME BETTER THIS STEFFEN. SOME SIPPING WITH ASSISTANCE. BED IN LOW POSITION,C ALL LITE IN REACH, BED ALARM ON FOR SAFETY
--- NOTE | 2018-12-06 05:43 | NUR ---
SHIFT SUMMARY: PT IS AWAKE AT TIMES. NO S/S FOR PAIN, NAUSEA, VOMITING, OR SOB. PT TURNED Q2H. PT INCONTINENT THROUGHOUT THE NIGHT, CHANGED AND CLEANED NEEDED. PT SLEPT MOST OF THE SHIFT. NO ACUTE CHANGES OVERNIGHT. WILL CONTINUE TO MONITOR.
--- NOTE | 2018-12-06 08:28 | NUR ---
PATIENT DID NOT EAT ANY BREAKFAST THIS SHIFT. PATIENT DECLINED. RN NOTIFIED.
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
--- NOTE | 2018-12-06 17:01 | NUR ---
PT C/O PAIN IN LEG. TURNED. PT STILL REQUEST PAIN MED. ROXANOL ADMIN PER EMAR
--- NOTE | 2018-12-06 18:26 | NUR ---
PT REFUSED DINNER AT THIS TIME. WE WILL ATTEMPT AGAIN LATER
--- NOTE | 2018-12-06 18:41 | NUR ---
PT PLEASANT TODAY MUMBLES AND GARBLED SPEACH, DID C/O PAIN TODAY. DID MEDICATE WITH MORPHINE. ALSO TURNED TO ASSIST WITH PAIN MGMT. CHOKED SOME WITH EATING PER REPORT OF AIDE. MS RICHARDSON IS COMFORT CARE. I HAD HER TO SIT STRAIGHT POSSIBLE WITH SIPS WATER. SOME COUGHING ALSO NOTED. PT RESTING THIS STEFFEN AT THIS TIME. BED IN LOW POSITION, CALL LITE IN REACH, BED ALARM ON FOR SAFETY
--- NOTE | 2018-12-07 04:58 | NUR ---
SHIFT SUMMARY: PT IS INTERMITTENTLY ALERT, VERBALLY RESPONSIVE AT TIMES BUT DIFFICULT TO UNDERSTAND. PT SHOWED NO S/S FOR PAIN, NAUSEA, VOMITING, OR SOB. PT INCONTINENT OVERNIGHT, CHANGED AND CLEANED NEEDED. TURNS Q2H. RESTING COMFORTABLY IN BED. WILL CONTINUE TO MONITOR AND REPORT TO DAY NURSE.
--- NOTE | 2018-12-07 08:44 | NUR ---
PATIENT DID NOT EAT BREAKFAST THIS SHIFT. PATIENT STATED SHE WAS NOT HUNGRY WHEN I OFFERED HER TRAY. RN NOTIDIED.
--- NOTE | 2018-12-07 12:13 | NUR ---
PATIENT DID NOT EAT LUNCH THIS SHIFT. PATIENT DECLINED TO EAT WHEN TRAY WAS OFFERED. RN NOTIFIED.
--- NOTE | 2018-12-07 12:37 | NUR ---
COMFORT ASSESSMENT PT DENIES PAIN. APPEARS COMFORTABLE AT THIS TIME. NO PHYSICAL SIGNS OF PAIN.
--- NOTE | 2018-12-07 15:05 | NUR ---
PT STATUS BROUGHT WARM BLANKET. APPLIED CHAPSTICK TO CHAPPED LIPS. PT STATES SHE DISLIKES THE LEMON SWABS. REQUESTED WATER. DENIED PAIN.
--- NOTE | 2018-12-07 15:12 | NUR ---
PT STATUS OFFERED PT THICKENED LEMON WATER. SHE DID HOLD THE CUP AND DRINK IT HERSELF. SHE STATED IT WAS GOOD. DYSPHAGIA PRECAUTIONS.
--- NOTE | 2018-12-07 16:02 | NUR ---
SHIFT SUMMARY PT DENIED PAIN THROUGHOUT SHIFT. REQUESTED WATER. PT DID LIKE THE WARMED BLANKETS I BROUGHT HER. Q 2 TURNS. I DID OFFER HER THICKENED WATER. PT STILL WAS OBSERVED TO CHOKE ON THE THICKENED WATER. I REQUESTED SUCTIONING EQUIPMENT BE RETURNED TO THE ROOM. HER LIPS ARE CHAPPED SO I APPLIED CHAPSTICK. SHE DID DECLINE FOOD TODAY.
--- NOTE | 2018-12-08 04:49 | NUR ---
SHIFT SUMMARY: 73 Y/O FEMALE RESTED COMFORTABLY ALL SHIFT, COMFORT CARE WITH NO PAIN GRIMACED OR VOICED, TURNED EVERY 2 HOURS BY STAFF, INCONTINENT URINE, BED ALARM APPLIED, BED LOW POSITION, CALL LIGHT AT SIDE.
--- NOTE | 2018-12-08 16:57 | NUR ---
SHIFT SUMMARY PT IS MOSTLY NONVERBAL. SHE SAYS "NO" CLEARLY THOUGH. SHE IS Q 2 TURNS. I HAVE WASHED HER FACE AND OFFERED PAIN MEDICATION, SHE REFUSED. I APPLIED CHAPSTICK. HER LIPS ARE IMPROVING. SHE REFUSED TO OPEN HER MOUTH FOR ORAL CARE. NO OTHER REMARKABLE CHANGES.
--- NOTE | 2018-12-09 07:22 | NUR ---
at baseline, call light in reach, room air, no IV, no change in condition during shift, bsr shared with day shift
--- NOTE | 2018-12-09 11:03 | NUR ---
PATIENT SLEEPING COMFORTABLY ON HER SIDE. NO SIGNS OR SYMPTOMS OF DISTRESS OR PAIN.
--- NOTE | 2018-12-09 15:51 | NUR ---
STATUS: PATIENT CONTINUES TO REST COMFORTABLY IN BED. NO SIGNS OR SYMPTOMS OF PAIN.
--- NOTE | 2018-12-09 18:05 | NUR ---
END OF SHIFT SUMMARY: PATIENT RESTED IN BED THROUGHOUT SHIFT. PATIENT WAS NON-VERBAL THROUGHOUT SHIFT. PATIENT LOOKED AT RN WHEN SPEAKING OR ASKING QUESTIONS. PATIENT ASSISTED WITH TURNS WITH RIGHT SIDE. PATIENT CONTINUES TO COUGH AFTER SOME NECTAR THICK LIQUIDS. TOLERATES PUDDING THICK. PATIENT FREE FROM SIGNS AND SYMPTOMS OF PAIN OR DISCOMFORT THROUGHOUT SHIFT.
--- NOTE | 2018-12-09 18:59 | NUR ---
Pt visit this afternoon. Pt is resting in bed and does not respond verbally. Offered gentle voice and therapeutic touch. Secretions noted with deep respirations. No other S/S of distress noted at this time. Spoke with bedside nurse Aletha and on coming nurse and discussed case. Discussed the use of scopolamine patch to help manage secretions. Aletha expresses concerns with Pt still coughing on nectur thick liquids and may benefit from pudding thick liquids. Palliative Care will F/U with request. Palliative Care will remain available.
--- NOTE | 2018-12-10 10:04 | NUR ---
AM ASSESSMENT- PT LYING IN BED AWAKE, PT MAKES EYE CONTACT BRIEFLY AND WILL ANSWER WITH ONE WORD ANSWERS OR SHAKES HEAD. PT DENIES ANY PAIN OR OTHER COMPLAINTS. PT WITH SECRETIONS NOTED, SCOPALAMINE PATCH IN PLACE. LOCKS INSPECTOR ATTEMPTING TO FEED PT BUT PT CONT COUGHING, PT SUCTIONED. FEEDING STOPPED AT THIS TIME. LS DIMINISHED, ON RA. LEFT SIDE DEFECIT. INCONT OF URINE. PT REPOSITIONED. MEPILEX TO COCCYX C/D/I. WILL CONT TO MONITOR.
--- NOTE | 2018-12-10 13:34 | NUR ---
Pt visit this afternoon. Pt is resting in bed and appears comfortable with no S/S of distress at this time. Pt is non verbal and appears more lethargic today. She does track with her eyes. Offered gentle voice and therapeutic touch by rubbing her shoulder and holding her hand. Spoke with bedside nurse Pamela and discussed case. Pamela reports no concerns at this time. Spoke with Dr Chavez and discussed case. Palliative Care will remain available.
--- NOTE | 2018-12-10 17:19 | NUR ---
SHIFT SUMMARY- PT COMFORT CARE. NO APPARENT DISCOMFORT T/O THE DAY. PT REQUIRING SUCTION THIS AM AFTER EATING BREAKFAST, PT CONT TO COUGH WHILE EATING. LS DIMINISHED, ON RA. PT WILL MAKE EYE CONTACT SHORTLY BUT WILL ONLY ANSWER WITH ONE WORD ANSWERS AT TIMES. TURN Q2H. NO OTHER ACUTE CHANGES THIS SHIFT.
--- NOTE | 2018-12-11 04:27 | NUR ---
PT HAD AN UNEVENTFUL SHIFT. ORAL CARE PROVIDED EACH TIME COMFORT ASSESSMENT WAS MADE. PT DIDN'T COMPLAIN OF ANY PAIN. ATTEMPTED TO PROVIDE PT WITH NECTAR THICK DRINK, BUT THIS RN WAS NOT CONVINCED THE PT WOULD BE ABLE TO SWALLOW SAFELY. ATTEMPTED TO FEED PUREED APPLE SAUCE AND PT TOLERATED IT BETTER. NO OTHER COMPLAINTS FROM PT AT THIS TIME. WILL CONTINUE TO MONITOR.
--- NOTE | 2018-12-11 16:12 | NUR ---
Pt visit this afternoon. Pt is resting in bed with her eyes closed. She opens her eyes with verbal stimuli but quickly closes them. Offered therapeutic touch with no other response. Pt appears comfortable with no S/S of distress at this time. Palliative Care will remain available.
--- NOTE | 2018-12-11 19:07 | NUR ---
SHIFT SUMMARY PATIENT IS COMFORT CARE, TURNED Q2. NO ACUTE CHANGES. NO DISCOMFORT NOTED THROUGH SHIFT. PT ATE MORE FOR LUNCH THAN SHE HAS RECENTLY, ABOUT 20%. LUNG SOUNDS IN BASES DIMINISHED, ON RA.
--- NOTE | 2018-12-11 22:17 | NUR ---
PT WAS FOUND ON THE FLOOR LYING ON HER LEFT SIDE AT 2200. PT COMPLAINS OF SLIGHT HEADACHE AND NO OTHER PAIN AT THIS POINT IN TIME. DR. SCHWARTZ WAS NOTIFIED AT 221 AFTER THE PT WAS SETTLED BACK IN BED. BECAUSE THE PT IS COMFORT CARE, NO VITALS WERE TAKEN AT THE TIME. DR. SCHWARTZ WANTS US TO CONTINUE TO MONITOR THE PT. NO INTERVENTIONS ORDERED AT THIS TIME. PT PLACED IN A YELLOW GOWN, BED IN LOW POSITION, AND BED ALARM ACTIVATED. WILL CONTINUE TO MONITOR THE PT.
--- NOTE | 2018-12-12 13:53 | NUR ---
Pt visit this afternoon. Pt is lying in bed with her eyes closed upon arrival. She opens her eyes with soft voice and lifts her hand suggestive of waving hi. She briefly attempts verbal communication but words are garbled and difficult to understand. Pt quickly closes her eyes. Pt appears comfortable with no S/S of distress at this time. Palliative Care will remain available.
--- NOTE | 2018-12-12 14:45 | NUR ---
PERFORMED ORAL CARE AND SUCTIONED PT AT LEAST TWICE AFTER LUNCH. PT ABLE TO COUGH UP SMALL AMOUNTS OF THICK SECRETIONS.
--- NOTE | 2018-12-12 18:00 | NUR ---
SHIFT SUMMARY PT LOC SLIGHTLY IMPROVED, PT HAS EYES OPEN MOST OF THE DAY AND TRACKS MOVEMENT. PT CAN FOLLOW SIMPLE COMMANDS AND CAN REPLY WITH ONE WORD ANSWERS AT TIMES. SHE HAS SAID A FEW SENTENCES BUT THEY ARE SOMEWHAT GARBLED. SHE HAS EATEN MOST OF HER MEALS AND HONEY THICK LIQUIDS TODAY SLOWLY WITH SMALL BITES. BED ALARM IS ON, BED LOW, YELLOW GOWN ON. TURNED Q2.
--- NOTE | 2018-12-13 04:49 | NUR ---
SHIFT SUMMARY COMFORT CARE STATYS MAINTAINED. PT IS MOSTLY NONVERBAL TONIGHT, SOME GARBLED SPEECH. PRN SUCTIONING FOR EXCESS SECRETIONS. BEDBOUND WITH Q2H TURNS COMPLETE. PREVENTIVE MEPILEX TO COCCYX AND HEEL PROTECTORS TO BILAT FT. NO PAIN OR ANXIETY, PT APPEARS COMFORTABLE AND RESTING WELL. WILL CONT TO MONITOR AND PROVIDE COMF MEASURES UNTIL PRESUMED BY ONCOMING RN.
--- NOTE | 2018-12-13 15:02 | NUR ---
SHIFT SUMMARY NO ACUTE CHANGES TO PRESENT THIS SHIFT. ADMITTED FOR ACUTE CVA, PRESENTLY ON COMFORT CARE. SPEECH GARBLED, DIFFICULT TO UNDERSTAND. PT IS A FEEDER, ON HONEY THICK LIQUIDS. INCONTINENT OF BOWEL AND BLADDER. 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 MEPILEX ON BUTTOCKS PREVENTATIVE. PT IS BEDBOUND; TURN Q2 PROTOCOL. NO S/SX OF DISTRESS NOTED. CALL LT IN REACH. BED ALARM ON FOR SAFETY.
--- NOTE | 2018-12-14 03:32 | NUR ---
resting with minimal interaction. room air, incontinent. no complaints.
--- NOTE | 2018-12-14 07:26 | NUR ---
no complaints of pain or acute distress, withdrawn. Will verbalize resounse minkamilah when roused.
--- NOTE | 2018-12-14 15:44 | NUR ---
SHIFT SUMMARY NO ACUTE CHANGES TO PRESENT THIS SHIFT. PT AWAKE MOST OF ENTIRE DAY. A COUPLE OF SHORT NAPS, BETWEEN TURNING. SLOW TO RESPOND, BUT WILL SMILE AND VERBALIZE SHORT STATEMENTS. REPOSITIONED Q2 HRS; PT TOLERATES WELL. INCONTINENT OF BOWEL AND BLADDER. NO S/SX OF DISTRESS. DENIED PAIN. FEEDER WITH HONEY THICK LIQUIDS. ON COMFORT CARE, WAITING FOR GUARDIANSHIP AND PLACEMENT. CALL LT IN REACH. BED ALARM ON FOR SAFETY.
--- NOTE | 2018-12-14 20:45 | NUR ---
pt resting comfortably
--- NOTE | 2018-12-15 05:50 | NUR ---
SHIFT SUMMARY PT ON CC. INCONT OF URINE. WAS ABLE TO SLEEP T/O NIGHT. NO S/S OF PAIN. BED ALARM IN USE.
--- NOTE | 2018-12-15 08:22 | NUR ---
MORNING ASSESSMENT PT AWAKENS WITH VERBAL STIMULI, BUT IS NONVERBAL AT THIS TIME. PT IS ABLE TO ANSWER QUESTIONS WITH HEAD NODDING/SHAKING. PT DENIES PAIN, SOB, N/V, AND DISCOMFORT. LUNG SOUNDS DIMINISHED T/O. PT SHAKES HEAD NO WHEN ASKED ABOUT BEING HUNGRY, THIRSTY, OR WHEN OFFERED ORAL CARE. THIS RN REPOSITIONED PT TO R SIDE WITH PILLOWS. ATTENDS CLEAN AND DRY. PT REFUSES TO DATA VIRTUALIZATION CONSULTANT HANDS, SMILE, STICK OUT TONGUE OR OPEN EYES FOR A THOROUGH NEURO ASSESSMENT. PT DOES HAVE GROSS MOVEMENT TO BUE. PT APPEARS TO BE RESTING COMFORTABLY. CALL LIGHT WITHIN REACH.
--- NOTE | 2018-12-15 11:29 | NUR ---
PT VERBAL AT THIS TIME AND MORE ALERT. SPEECH IS SLURRED WITH A SLIGHT L FACIAL DROOP. PT DENIES PAIN OR DISCOMFORT. ATTENDS AND LINENS CHANGED AT THIS TIME. PT REPOSITIONED AND LEGS ELEVATED ON PILLOWS. PT REPORTS SHE WILL BE HUNGRY FOR LUNCHTIME. CALL LIGHT WITHIN REACH.
--- NOTE | 2018-12-15 16:55 | NUR ---
SHIFT SUMMARY NO ACUTE CHANGES THIS SHIFT. PT DENIES PAIN/DISCOMFORT T/O SHIFT. REPOSITIONED Q2. ATTENDS CHANGES PRN. CONTINUING COMFORT CARE. CALL LIGHT WITHIN REACH.
--- NOTE | 2018-12-16 06:24 | NUR ---
SHIFT SUMMARY COMFORT CARE STATUS MAINTAINED. PT DOES NOT APPEAR TO BE IN ANY PAIN, ANXIETY, OR DISTRESS OF ANY SORT. Q2H REPOSITIONING COMPLETE. PRN SUCTIONING, ORAL CARE PERFORMED. PT RESISTIVE TO ORAL CARE. SCOPOLAMINE PATCH TO R EAR. PT IS MOSTLY NONVERBAL TONIGHT, WITH FEW WORDS SPOKEN WITH GARBLED SLURRED SPEECH. BED ALARM ON FOR SAFETY. WILL CONT TO MONITOR AND PROVIDE CARE UNTIL PRESUMED BY ONCOMING RN.
--- NOTE | 2018-12-16 09:53 | NUR ---
PATIENT ATE BREAKFAST WITH SOME ASSISTANCE. ATTENDS CHANGED AND REPOSITIONED.
--- NOTE | 2018-12-16 10:08 | NUR ---
Pt resting in bed with her eyes closed. She appears comfortable with no S/S of distress. Spoke with bedside nurse Syliva and she reports no concerns. Palliative Care will remain available.
--- NOTE | 2018-12-16 13:33 | NUR ---
PATIENT ATE LUNCH WITH ASSISTANCE OF FIXTURE MAKER. PATIENT IS BEING REPOSITIONED AND ATTENDS CHANGED NOW.
--- NOTE | 2018-12-16 17:01 | NUR ---
JEWELRY CONSULTANT IS PERFORMING SUCTION NOW. PATIENT HAS BEEN REPOSITIONED.
--- NOTE | 2018-12-16 17:29 | NUR ---
PATIENT IS ALERT AND ORIENTED TO SELF, SURROUNDINGS AND FOLLOWING DIRECTIONS. PATIENT HAS SUCTION SET UP AT THE BEDSIDE. COMFORT CARE. NO COMPLAINTS OF PAIN. NEEDS ASSISTANC WITH FEEDING. REPOSITIONING Q2H. WILL CONTINUE TO MONITOR.
--- NOTE | 2018-12-17 04:20 | NUR ---
SHIFT SUMMARY NO ACUTE CHANGES OVERNIGHT. PT HAS SLEPT MOST OF THE SHIFT. SHE HAS DENIED PAIN OR NEEDS. COMFORT ASSESSED T/O SHIFT. PT BECOMES EASILY AGITATED WITH TURNS AND CHANGES. PT OTHERWISE HAS BEEN PLESANT. PLAN FOR PT AT THIS TIME IS FINDING GUARDENSHIP AND THE DC. WILL CONTINUE TO MONITOR AND REPORT TO ONCOMING RN.
--- NOTE | 2018-12-17 14:53 | NUR ---
PT DENIES PAIN. DENIES SOB. RESP E/U ON RA. DENIES N/V. TURNS Q2H. PALLIATIVE CARE IN TO SEE PT THIS AFTERNOON. NO OTHER SIGNIFICANT CHANGES.
--- NOTE | 2018-12-17 14:54 | NUR ---
Pt resting in bed upon arrival. She initially has her eyes open then upon entering room Pt closes them. Attempted conversation and Pt does not respond verbally and quickly closes her eyes. Offered gentle voice and therapeutic touch with no verbal response. Ended visit to allow Pt to rest. Spoke with bedside nurse Fawad and she reports no concerns at this time. Palliative Care will remain available.
--- NOTE | 2018-12-17 15:54 | NUR ---
ASSUMED CARE OF PATIENT FROM NEMO TRIMBLE. NO COMPLAINTS AT THIS TIME. PATIENT APPEARS COMFORTABLE
--- NOTE | 2018-12-17 17:28 | NUR ---
SHIFT SUMMARY PATIENT AWAITING GUARDIANSHIP AND PLACEMENT. SHE ATE SOME BREAKFAST THIS MORNING PER MORTUARY OPERATIONS MANAGER BUT SHE HAS BEEN UNABLE TO TOLERATE ANY MORE INTAKE R/T CHOKING AND THEN SHE REFUSES. TURNING Q 2 HOURS. INCONTINENT. DENIES PAIN AND NO S/SX DISCOMFORT
--- NOTE | 2018-12-17 23:47 | NUR ---
PATIENT RESTING, APPEARS COMFORTABLE
--- NOTE | 2018-12-18 03:04 | NUR ---
SHIFT SUMMARY PATIENT IS ON COMFORT CARE. RESTING T/O THE SHIFT. NO S/SX OF PAIN, SOB, OR N/V. TURNING Q2 HOURS. NO IV ACCESS. BEDREST. CONTACT PRECAUTIONS. CALL LIGHT IN REACH. BED IN LOWEST POSITION. WILL CONTINUE TO MONITOR UNTIL DAY SHIFT NURSE ASSUMES CARE.
--- NOTE | 2018-12-18 11:45 | NUR ---
Visit to check in on Sherlyn who remains on comfort care. Sherlyn is currently sleeping, laying on her left side. Resp even and unlabored. She appears to be comfortable at this time. Spoke with nursing who reports pt has been cooperative with care this am, minimal PO intake. Nursing voices no concerns at this time. CM working for guardianship and placement. PC will remain available for symptom management.
--- NOTE | 2018-12-18 17:58 | NUR ---
SHIFT SUMMARY PT NAPPING MOST OF AFTERNOON. THIS MORNING SHE WAS THROWING HER LEG OVER SIDE OF BED FREQUENTLY AND SAID SHE WAS BORED. WAS GOING TO GET HER UP IN A CHAIR BECAUSE SHE THOUGHT THAT SOUNDED GREAT BUT FELL ASLEEP PRIOR TO GETTING IN CHAIR AND HAS SLEPT BETWEEN MEALS SINCE.
--- NOTE | 2018-12-19 03:14 | NUR ---
PT appears comfortable. She is turned side to side with 2 assist. dysphagia precautions, honey thick liquids small amt taken.
--- NOTE | 2018-12-19 03:18 | NUR ---
73 year old Female DNR status with acute CVA continues on comfort measures. She denues pain or acute distress. responds to verbal stmuli, does not use call evans. able to communucate, speaks softly and slowly. few sips honey thick liquids taken with assist. oral suction so cough and secretions. Awaits discharge on Hospice.
--- NOTE | 2018-12-19 07:15 | NUR ---
PATIENT SLEEPING AT THIS TIME. NO S/S OF PAIN OR DISCOMFORT ASSESSED.
--- NOTE | 2018-12-19 09:04 | NUR ---
PATIENT SLEEPING AT THIS TIME. REFUSED BREAKFAST THIS AM.
--- NOTE | 2018-12-19 11:48 | NUR ---
Pt is resting in bed and appears comfortable. Pt denies pain at this time. Pt appears for lethargic today. Attempted conversation with little verbal response. Palliative Care will remain available.
--- NOTE | 2018-12-19 16:51 | NUR ---
PATIENT CONTINUES TO REFUSE MEALS. ASSISTING TO REPOSITION Q2 HOURS. INCONTINENT OF BOWEL AND BLADDER. FALL PRECAUTIONS IN PLACE. PATIENT REFUSING TO GET UP TO CHAIR. DENIES ANY PAIN OR DISCOMFORT.
--- NOTE | 2018-12-19 16:53 | NUR ---
PATIENT NOT EATING OR DRINKING. NO FAMILY OR FRIENDS AT BEDSIDE THIS SHIFT. PATIENT DENIES ANY PAIN OR NAUSEA. FALL PRECAUTIONS IN PLACE. PATIENT DOES NOT USE CALL LIGHT. SLEPT MOST OF THE DAY.
--- NOTE | 2018-12-20 06:31 | NUR ---
SHIFT SUMMARY PT IS A 73 Y/O FEMALE, CURRENTLY ON COMFORT CARE AND AWAITING PLACEMENT. SHE IS A&O X 2, THOUGH ONLY ANSWERS QUESTIONS WITH ONE TO TWO WORD ANSWERS. SHE DENIED ANY COMPLAINTS OF PAIN, NAUSEA OR SOB DURING THE NIGHT. PT SLEPT WELL THROUGH THE NIGHT. NO ACUTE CHANGES IN PT CONDITION NOTED. WILL CONTINUE TO MONITOR AND TREAT PER EMAR UNTIL HAND OFF TO DAY SHIFT RN.
--- NOTE | 2018-12-20 07:48 | NUR ---
PATIENT SLEEPING AT THIS TIME. NO S/S OF PAIN OR DISCOMFORT. FALL PRECAUTIONS IN PLACE.
--- NOTE | 2018-12-20 11:27 | NUR ---
Comfort Care visit this AM. Pt is resting in bed with her eyes open. Pt responds verbally to yes and no questions. Pt denies pain and is comfortable. Offered gentle voice and therapeutic touch by rubbing shoulder. No S/S of distress at this time. Palliative Care will remain available.
--- NOTE | 2018-12-20 11:35 | NUR ---
CHANGED ATTENDS AND REPOSITIONED. PATIENT TOOK BITES OF BREAKFAST. DENIES ANY PAIN OR NAUSEA OR ANY NEEDS AT THIS TIME.
--- NOTE | 2018-12-20 11:36 | NUR ---
ATTENDS CHANGED AND PATIENT REPOSITIONED. PATIENT DENIES ANY DISCOMFORT OR NEEDS AT THIS TIME.
--- NOTE | 2018-12-20 14:49 | NUR ---
PATIENT DENIES ANY PAIN OR NAUSEA. REPOSITIONING SELF IN BED. SKIN REMAINS C/D/I.
--- NOTE | 2018-12-20 17:58 | NUR ---
PATIENT TAKING BITES OF MEALS. REFUSES WHEN ASKED, BUT WILL TAKE SOME BITES IF FED. PATIENT DENIES ANY PAIN THIS SHIFT. ABLE TO TURN SELF IN BED, INCONTINENT OF BOWEL AND BLADDER. AWAITING PLACEMENT TO D/C HOME ON HOSPICE.
--- NOTE | 2018-12-21 04:37 | NUR ---
SHIFT SUMMARY NO ACUTE CHANGES THIS SHIFT. PT WILL ANSWER YES OR NO QUESTIONS BUT IS OTHERWISE NONVERBAL. PT INCONTINENT OF BLADDER THIS EVENING. ATTENDS IN PLACE AND CHANGED NEEDED. DENIED ANY PAIN AND HAD NO S/S OF PAIN OR DISCOMFORT. SLEPT WELL THROUGHOUT THE NIGHT. WILL CONTINUE TO MONITOR.
--- NOTE | 2018-12-21 07:32 | NUR ---
PATIENT DENIES ANY PAIN OR DISCOMFORT, ATTENDS DRY AT THIS TIME. PATIENT DENIES ANY NEEDS.
--- NOTE | 2018-12-21 10:57 | NUR ---
PATIENT REPOSITIONED AND ATTENDS CHANGED. PATIENT DENIES ANY NEEDS AT THIS TIME. CALL LIGHT WITHIN REACH.
--- NOTE | 2018-12-21 15:55 | NUR ---
Pt resting in bed with her eyes closed and appears comfortable. This RN did not disturb Pt at this time. No S/S of distress at this time. Spoke with bedside nurse Socorro. She reports Pt's oral intake has significantly decreased. Taking only 1 bite of food at meal time. Pt coughs with a sip of fluid. Palliative Care will remain available.
--- NOTE | 2018-12-22 06:31 | NUR ---
SHIFT SUMMARY PT IS A 73 Y/O FEMALE, ADMITTED FOR AN ACUTE CVA, AND CURRENTLY ON COMFORT CARE AWAITING PLACEMENT. SHE IS A&O X SELF, ON BEDREST. NO COMPLAINTS OF PAIN, DISCOMFORT, NAUSEA OR SOB. NO ACUTE CHANGES IN PT CONDITION NOTED. WILL CONTINUE TO MONITOR AND TREAT PER EMAR UNTIL HAND OFF TO DAY SHIFT.
--- NOTE | 2018-12-22 13:10 | NUR ---
Pt visit this afternoon. Pt is resting in bed upon arrival. Pt's eyes are open but does not respond verbally when spoken to. Offered gentle voice and therapeutic touch by rubbing shoulder and holding hand. Pt closes her eyes. Pt appears comfortable with no S/S of distress. Palliative Care will remain available.
--- NOTE | 2018-12-22 17:56 | NUR ---
ALERT TO SELF. MOSTLY NONVERBAL. MOVES AROUND OFTEN IN BED. UNLABORED RESPIRATIONS. ATTENDS CHANGED PRN. HAS DENIED ANY PAIN. DOES NOT MOAN OR GRIMACE. WCTM.
--- NOTE | 2018-12-23 07:39 | NUR ---
12/23/18 0630 UNEVNEFUL NIGHT. DENIES ANY DISCOMFORT OR S/S. TURNED Q 2 HOURS. IRRITABLE AT TIMES WITH STAFF AND NURSING CARE.
--- NOTE | 2018-12-23 17:23 | NUR ---
PT IS AOX1 AND COOPERATIVE OF CARE IF CARE IS JUST GIVEN, PT WILL REFUSE IF ASKED. PT HAS NOT EATEN WELL TODAY. PT RESTING IN BED AT THIS TIME AND HAS DENIED ANY PAIN. WILL CONTINUE TO MONITOR.
--- NOTE | 2018-12-24 03:55 | NUR ---
SHIFT SUMMARY: 73 Y/O FEMALE RESTED COMFORTABLY ALL SHIFT, DENIES PAIN OR NAUSEA, CONTACT ISOLATION MAINTAINED FOR MRSA, COMFORT CARE PATIENT, BED ALARM APPLIED, BED LOW POSITION, CALL LIGHT AT SIDE.
--- NOTE | 2018-12-24 12:03 | NUR ---
Visited with pt this morning. She is sneezing and coughing this morning. Clear thin drainage noted from her nose. Kleenex used to clean her nose area. Pt coughed and had some secretions in her mouth. Unable to spit them out in a kleenex. Attempted suction, however pt did not open her mouth very wide. She is not verbally answering any questions this morning. She is rubbing her low right thigh area. Repositioned pillows under her legs and massaged her right leg just above the knee. Pt cont'd to be non verbal with poor eye contact. Left upper and lower extremities have been effected by her CVA and did not move during my visit today. She does not appear to be in any distress at this time. PC will continue to follow for symptom management. CM working on guardianship and placement. Comfort care continues.
--- NOTE | 2018-12-24 17:18 | NUR ---
PT AOX2 AND RESTING IN BED ALL DAY. WORK ON REPOSITIONING EVERY COUPLE HOURS. NO DISTRESS NOTED AND PT DENIED PAIN. PT EATING BETTER TODAY WITH HELP. WILL CONTNIUE TO MONITOR.
--- NOTE | 2018-12-25 05:36 | NUR ---
SHIFT SUMMARY: NO ACUTE CHANGES OVER NIGHT. ALERT TO SELF. ABLE TO EXPRESS NEEDS. PT APPEARS TO BE RESTING COMFORTABLY. REPOSITIONED Q2 HOURS. COOPERATIVE WITH CARE. MEPILEX PLACED TO COCCYX. GIVEN THICKENED WATER PRN.
--- NOTE | 2018-12-25 08:55 | NUR ---
PT ASSISTED W REPOSITIONING. DEFENCE FORCE MEMBER OTHER RANKS IN TO ASSIST W BF. PT IS FLAT, POOR EYE CONTACT, MINIMAL RESPONSE TO VERBAL @ THIS TIME. NO S/S PAIN.
--- NOTE | 2018-12-25 15:13 | NUR ---
Pt visit this afternoon. Pt is resting in bed upon arrival. She denies pain but appears mildly anxious as evidenced by nonsensical conversation regarding concerns that an argument with her family will happen and her attempts to sit up out of bed. Diverted conversation and discussed the weather. Offered gentle voice and therapeutic touch. Pt's anxiety appears decreased but still present. Spoke with bedside nurse Endy who is covering for Pt's nurse and discuss the use of lorazepam for anxiety. Palliative Care will remain available.
--- NOTE | 2018-12-25 16:11 | NUR ---
SUMMARY PT IS ABLE TO MAKE SOME SPEECH, ANSW BASIC QUEST APPROP. STATE NO PAIN T/O DAY. SHE APPEARS WEAK/FATIGUED. DX CVA w L SIDE WEAKNESS. PUREED/HONEY THICK DIET, HARDWARE TRAINER ASSIST w ALL MEALS & FLUIDS. YEAST RASH NOTED TO ABD SKIN FOLD & SEUN AREA, DR MELENDEZ ORDER NYSTATIN PWDER PRN. STATE WE ARE CONTINUING TO AWAIT GUARDIANSHIP & HOSPICE PLACEMENT. COMFORT CARE CONTINUES.
--- NOTE | 2018-12-25 18:31 | NUR ---
GUARDIANSHIP PAPERWORK DELIVERED TO PT., EXPLAINED. EDGER OPERATOR NOTIFIED. PAPERS PLACED IN PT BELONGING BAG IN CLOSET.
--- NOTE | 2018-12-25 19:30 | NUR ---
ASSUMED CARE OF THE PATIENT. SHE IS LISTENING TO TV MUSIC, ABLE TO MAKE OUT SOME OF HER SPEECH. SHE DENIED PAIN OR DISCOMFORT AT THIS TIME. ATTENDS DRY. REPOSITIONED, PILLOWS TO SIDE. CALL LIGHT IN REACH. SIDE RAILS UP X 3, BED IN LOW POSITION. WILL CONTINUE TO MONITOR.
--- NOTE | 2018-12-25 23:29 | NUR ---
NO ACUTE CHANGES, CHANGED POSITION, NO NEEDS NOTED. WATER GIVEN. CALL LIGHT IN REACH.
--- NOTE | 2018-12-26 04:47 | NUR ---
NO ACUTE CHANGES, PATIENT CONTINUES TO SLEEP, POSITION CHANGED.
--- NOTE | 2018-12-26 05:16 | NUR ---
SHIFT SUMMARY: PATIENT HAS HAD AN UNEVENTFUL NIGHT. WITH NO ACUTE CHANGES TO NOTE. COMFORT CARE WAS PROVIDED. NO MEDS WERE GIVEN, SHE DENIED ANY PAIN OR DISCOMFORT. WATER WAS ENCOURAGED AND GIVEN. REPOSITION PRN. WILL REPORT TO DAY SHIFT RN.
--- NOTE | 2018-12-26 17:45 | NUR ---
SHIFT SUMMARY NO ACUTE CHANGES. PATIENT DENIES PAIN, NAUSEA, AND SHORTNESS OF BREATH. EATING WELL. NYSTATIN TO RASH UNDER LEFT ARMPIT. CALL LIGHT IN REACH.
--- NOTE | 2018-12-26 19:52 | NUR ---
ASSUMED CARE OF THE PATIENT. SHE WAS WATCHING TV IN HER ROOM, SITTING UP IN BED, PILLOWS TUCKED AROUND HER. DENIED ANY DISCOMFORT OR PAIN. DENIED ANY NEEDS, OFFERED WATER. ATTENDS DRY. WILL CONTINUE TO MONITOR.
--- NOTE | 2018-12-26 22:53 | NUR ---
PATIENT ATTENDS CHANGED, REPOSITIONED IN MED FOR BEDTIME. DENIED ANY DISCOMFORT. CALL LIGHT IN REACH.
--- NOTE | 2018-12-27 02:23 | NUR ---
PATIENT RESTING COMFORTLY IN THE ROOM WITH NO CONCERNS TO NOTE.
--- NOTE | 2018-12-27 05:05 | NUR ---
SHIFT SUMMARY: DAGOBERTO HAD NO ACUTE CHANGE OR CONCERNS. COMFORT CARE WAS PROVIDED, NO MEDICATIONS WERE NEEDED. NO DISCOMFORTS NOTED. REPOSITIONED PRN. CALL LIGHT REMAINED IN REACH. WILL REPORT TO DAY SHIFT RN.
--- NOTE | 2018-12-27 18:05 | NUR ---
TURNED Q 2 HOURS. ATTENDS CHANGED PRN. NONVERBAL TODAY. FEEDER. NO; GRIMACING OR MOANING. APPEARS TO BE COMFORTABLE. NO PAIN MEDS GIVEN. MOVES AROUND IN BED OFTEN. BED IN LOW POSITION. WCMARY CAMREN.
--- NOTE | 2018-12-27 21:32 | NUR ---
PATIENT APPEARS COMFORTABLE IN BED. PATIENT REPOSITIONED AND BRIEF CHANGED. WILL CONTINUE TO MONITOR.
--- NOTE | 2018-12-28 07:05 | NUR ---
SLEEPING. APPEARS COMFORTABLE.
--- NOTE | 2018-12-28 18:59 | NUR ---
ALERT TO SELF. ATTENDS CHANGED PRN. STATE WORKER IN TO SEE PATIENT W/PATIENT ANSWERING "YES" TO EVERYTHING. MOVES ALL EXTREMITIES WITHOUT DIFFICULTY.NO PAIN MEDS GIVEN SHE APPEARS VERY COMFORTABLE T/O THIS SHIFT. REPORT TO NIGHT RN
--- NOTE | 2018-12-28 23:01 | NUR ---
PT. RESTING COMFORTABLY IN BED, NO APPARENT DISTRESS NOTED. CALL LIGHT WITHIN REACH, SIDE RAILS UP X2, AND BED ALARM ON. WILL CONT TO MONITOR.
--- NOTE | 2018-12-29 04:47 | NUR ---
SHIFT SUMMARY- PT. ON COMFORT CARE. NO ACUTE CHANGES OVERNIGHT. RESTED WELL T/O THE SHIFT, NO APPARENT DISTRESS NOTED OR DISCOMFORT. NO MEDICATIONS GIVEN. PT. APPEARED COMFORTABLE AND NOT IN PAIN. REPOSITIONED PRN, TOLERATED WELL. CALL LIGHT WITHIN REACH, SIDE RAILS UP X3, AND BED ALARM ON. WILL CONT TO MONITOR.
--- NOTE | 2018-12-29 17:11 | NUR ---
SHIFT SUMMARY PT MEDICATED FOR PAIN x 1 AND HAS AP[PEARED COMFORTABLE SINCE. MEALS WERE FED TO PT. PAPERS FOR [employer] PLACED ON FRONT OF CHART.
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
--- NOTE | 2018-12-30 13:40 | NUR ---
Spiritual care provided for this pt.
--- NOTE | 2018-12-30 17:37 | NUR ---
SUMMARY PT RESTING QUIETLY IN BED, WAKES EASILY, ONLY SAYS ONE WORD ANSWERS, OTHERWISE SPEAKS IN WORD SALAD, DOES NOT FOLLOW COMMANDS, IS ON COMFORT CARE, OCC RESTLESS IN BED, NO PHONE CALLS OR VISITS, STILL AWAITING PLACEMENT, NO ACUTE CHANGES, WILL CONT TO MONITOR
--- NOTE | 2018-12-30 23:12 | NUR ---
PT. RESTING COMFORTABLY IN BED, NO APPARENT DISTRESS NOTED. CALL LIGHT WITHIN REACH AND SIDE RAILS UP X3. WILL CONT TO MONITOR.
--- NOTE | 2018-12-31 04:46 | NUR ---
SHIFT SUMMARY- NO ACUTE EVENTS OVERNIGHT. COMFORT CARE PT. RESTING QUIETLY IN BED, NO APPARENT DISTRESS NOTED. REPOSITIONED PRN. ATTENDS IN PLACE. CALL LIGHT WITHIN REACH AND SIDE RAILS UP X2. WILL CONT TO MONITOR.
--- NOTE | 2018-12-31 07:22 | NUR ---
AM ASSESSMENT PT RESTING QUIETLY. NO SIGNS OF PAIN/DISCOMFORT. WILL CONTINUE TO MONITOR FOR COMFORT.
--- NOTE | 2018-12-31 13:27 | NUR ---
Pastorial care provided, prayer and blessing
--- NOTE | 2018-12-31 18:11 | NUR ---
SHIFT SUMMARY PT HAS BEEN SLEEPING OFF AND ON THIS SHIFT. NO COMPLAINTS OF PAIN THIS SHIFT. PT HAS GOOD APPETITE. NO ACUTE CHANGES THIS SHIFT. WILL CONTINUE TO MONITOR FOR COMFORT AND REPORT TO ONCOMING RN.
--- NOTE | 2018-12-31 18:23 | NUR ---
Comfort Care Visit this evening. Pt is resting in bed and appears comfortable. Pt denies pain and dyspnea. Pt attempts to engage in conversation but much is non sensical. Offered gentle voice and therapeutic touch by holding Pt's hand. No S/S of distress at this time. Spoke with bedside nurse Margi and discussed case. Margi reports no concerns at this time. Palliative Care will remain available.
--- NOTE | 2019-01-01 06:27 | NUR ---
NOC SHIFT SUMMARY PT HAS SLEPT ON AND OFF THIS SHIFT. SHE DENIES PAIN OR DISCOMFORT. NO ACUTE CHANGES NOTED THIS SHIFT. REPOSITIONED THROUGHOUT THE NIGHT. SHE IS A COMFORT CARE PT. SHE DOES APPEAR COMFORTABLE AT THIS TIME. WILL CONTINUE TO MONITOR.
--- NOTE | 2019-01-01 11:52 | NUR ---
Pastoral care provided
--- NOTE | 2019-01-01 16:46 | NUR ---
SHIFT SUMMARY PT MEDICATED FOR PAIN ONCE THIS SHIFT. PT INCREASED IN RESTLESSNESS & WAS RUBBING LEG CONT. PT NOW RESTING COMFORTABLY IN BED. CHANGED & REPOSITIONED NEEDED. NO CHANGES IN ASSESSMENT AT THIS TIME. WILL CONTINUE TO MONITOR FOR DISCOMFORT.
--- NOTE | 2019-01-01 19:18 | NUR ---
Comfort Care Visit this Evening. Pt resting in bed and is watching television. Pt's verbal responses are minimal but does answer yes or no questions. Pt denies pain at this time. Pt appears comfortable with no S/S of distress at this time. Palliative Care will remain available.
--- NOTE | 2019-01-02 06:32 | NUR ---
NOC SHIFT SUMMARY PT HAS SLEPT WELL THIS NIGHT. INDICATED SHE WAS HUNGRY EARLY IN THE MORNING AND WAS BROUGHT SOMETHING TO EAT. SHE FELL TO SLEEP AFTER EATING AND HAS ONLY AWAKENED DURING POSITION CHANGES AND COMFORT CHECKS. NO ACUTE CHANGES NOTED THIS NIGHT. APPEARS COMFORTABLE. WILL CONTINUE TO MONITOR.
--- NOTE | 2019-01-02 17:20 | NUR ---
Comfort Care Visit. Pt resting in bed upon arrival. Pt just received personal care and repositioning in bed by care team. Pt preparing to eat dinner. Pt appears comfortable with no S/S of distress at this time. Spoke with bedside nurse Heidi and she reports no concerns at this time. Palliative Care will remain available.
--- NOTE | 2019-01-02 17:33 | NUR ---
SHIFT SUMMARY NO CHANGES IN ASSESSMENT AT THIS TIME. PT REPOSITIONED ALLOWED. PT RESTING COMFORTABLY IN BED. WILL CONTINUE TO MONITOR FOR COMFORT UNTIL TURNOVER IS COMPLETE.
--- NOTE | 2019-01-03 06:09 | NUR ---
SHIFT SUMMARY PT IS A 73 Y/O FEMALE, CURRENTLY COMFORT CARE AND AWAITING PLACEMENT. SHE IS A&O X 1-2, THOUGH WILL ONLY SPEAK MINIMALLY WITH STAFF. SHE DID REPORT A HEADACHE DURING THE NIGHT, AND WAS MEDICATED WITH 5 MG PO ROXANOL. NO COMPLAINTS SOB OR NAUSEA. PT SLEPT OFF AND ON THROUGH THE NIGHT. NO OTHER ACUTE CHANGES IN PT CONDITION NOTED. WILL CONTINUE TO MONITOR AND TREAT PER EMAR UNTIL HAND OFF TO DAY SHIFT RN.
--- NOTE | 2019-01-03 09:23 | NUR ---
PT DENIED PAIN THIS AM, CNE ASSISTED THE PT WITH BREAKFAST
--- NOTE | 2019-01-03 10:50 | NUR ---
PT IS AWAKE APPEARS TO BE BREATHING EASILY ON RA AT THIS TIME
--- NOTE | 2019-01-03 16:25 | NUR ---
PT MEDICATED WITH TYLENOL FOR HEAD ACHE AND NECK PAIN, HEATING PAD GIVEN
--- NOTE | 2019-01-03 16:26 | NUR ---
PT IS AWAKE AT THIS TIME REPORTS H/A HAS MUCH IMPROVED
--- NOTE | 2019-01-03 18:19 | NUR ---
PT IS ALERT, PT REPORTED SOME RIGHT KNEE PAIN HOWEVER DECLINED NEED FOR PAIN MEDICATION AT THIS TIME, THE PT HAS HAD A GOOD APPETITE T/O THE DAY, PT APPEARS TO BE BREATHING EASILY ON RA
--- NOTE | 2019-01-03 18:44 | NUR ---
PT TURNED AND CLEANED GRIMICING IN PAIN, PT WAS WILLING TO BE MEDICATED FOR PAIN AT THIS TIME
--- NOTE | 2019-01-04 05:54 | NUR ---
SHIFT SUMMARY PT IS A 73 Y/O FEMALE, CURRENTLY ON COMFORT CARE AND AWAITING OUTPATIENT PLACEMENT. SHE IS A&0 X 2, AND ON BEDREST. PT WAS MEDICATED ONCE FOR A HEADACHE. NO COMPLAINTS OF SOB OR NAUSEA. PT SLEPT WELL DURING THE NIGHT. NO ACUTE CHANGES IN PT CONDITION NOTED. WILL CONTINUE TO MONITOR AND TREAT PER EMAR UNTIL HAND OFF TO DAY SHIFT.
--- NOTE | 2019-01-04 07:30 | NUR ---
PT APPEARS TO BE SLEEPING AT THIS TIME OPENS HER EYES TO VERBAL STIMULI
--- NOTE | 2019-01-04 11:04 | NUR ---
PT DECLINED BREAKFAST THIS AM, PT APPEARS TO BE SLEEPING AT THIS TIME
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
--- NOTE | 2019-01-04 15:26 | NUR ---
PT REPORTED THAT HER HEAD ACHE HAD DIMINISHED
--- NOTE | 2019-01-04 18:22 | NUR ---
PT RESTING IN BED, PT REPORTED THAT SHE DIDNT FEEL RIGHT FOR MOST OF THE DAY DENIED FEELING NAUSEATED, DECLINED PAIN MEDICATION, THE PT WAS MEDICATED WITH TYLENOL THIS AM FOR HEADACHE, THAT SHE REPORTED HAD SUBSIDED, PT APPEARS TO BE BREATHING EASILY ON RA, CALL LIGHT IN REACH
--- NOTE | 2019-01-04 18:50 | NUR ---
PT REPORTS HEADACHE AND LEG PAIN MEDICATED WITH TYLENOL AND MORPHINE AT THIS TIME
--- NOTE | 2019-01-05 04:42 | NUR ---
SUMMARY: PT IS A/O X2, ON BEREST W/TURN SCHEDULE MAINTAINED AND SPECIFIES NEEDS WHEN STAFF IN ROOM. SHE'S DENIED PAIN/COMPLAINTS THIS SHIFT AND NO LONGER REPORTS ROBERTS SHE PREVIOUSLY HAD ON DAY SHIFT. SHE REMAINS ON COMFORT CARE AWAITING PLACEMENT. SHE MOVES HERSELF FREQUENTLY IN BED AND STAFF CHANGED ATTENDS FOR INCONTINENCE PRN. NO ACUTE CHANGES. WCTM AND REPORT TO DAY RN.
--- NOTE | 2019-01-05 07:36 | NUR ---
PT IN NO APPARENT DISTRESS. NO DYSPNEA/SOB/SECRETIONS. NO FAMILY MEMBERS PRESENT. WCTM.
--- NOTE | 2019-01-05 11:13 | NUR ---
PT IN NO APPARENT DISTRESS/ NO C/O PAIN. NO DYSPNEA/SBO/SECRETIONS. NO FAMILY MEMBERS PRESENT. WCTM.
--- NOTE | 2019-01-05 11:14 | NUR ---
PT IN NO APPARENT DISTRESS/ NO C/O PAIN. NO DYSPNEA/ SOB/ SECRETIONS. NO FAMILY PRESENT. WCTM.
--- NOTE | 2019-01-05 12:46 | NUR ---
MEDICATED FOR PAIN PER EMAR. NO DYSPNEA/SOB/SECRETIONS. NO FAMILY PRESENT. WCTM.
--- NOTE | 2019-01-05 15:41 | NUR ---
PT IN NO APPARENT DISTRESS. NO DYSPNEA/ SOB/ SECRETIONS. NO FAMILY PRESENT. WCTM.
--- NOTE | 2019-01-05 15:41 | NUR ---
PT IN NO APPARENT DISTRESS/ NO C/O PAIN. NO DYSPNEA/ SOB/ SECRETIONS. NO FAMILY PRESENT. WCTM.
--- NOTE | 2019-01-05 18:01 | NUR ---
NO C/O PAIN/ PT IN NO APPARENT DISTRESS. NO DYSPNEA/ SOB/ SECRETIONS. NO FAMILY MEMBERS PRESENT. WCTM.
--- NOTE | 2019-01-05 19:33 | NUR ---
SHIFT SUMMARY: NO ACUTE CHANGES TO REPORT THIS SHIFT. COMFORT CARE MEASURES CONTINUING. MEDICATED FOR PAIN PER EMAR. NO DYSPNEA/SOB/SECRETIONS. NO FAMILY MEMBERS IN ROOM THIS SHIFT. AWAITING PLACEMENT. REPORT GIVEN TO ONCOMING RN.
--- NOTE | 2019-01-05 21:51 | NUR ---
01/05/19 2150 SLEEPING AT THIS TIME. NO DISTRESS NOTED.
--- NOTE | 2019-01-06 00:04 | NUR ---
01/06/19 0000 REPOSITIONED TO RIGHT SIDE AFTER ATTENDS BRIEF CHANGED FROM QS VOIDING. DENIED ANY PAIN.
--- NOTE | 2019-01-06 04:28 | NUR ---
01/06/19 0400 REPOSITIONED AND APPEARS COMFORTABLE.
--- NOTE | 2019-01-06 07:13 | NUR ---
PATIENT IS LAYING IN BED WITH HER EYES CLOSED. NO SIGN OF DISCOMFORT.
--- NOTE | 2019-01-06 11:31 | NUR ---
PATIENT IS SITTING UP IN BED. LUNCH IS ABOT TO BE SERVED
--- NOTE | 2019-01-06 13:44 | NUR ---
PATIENT IS LYING AWAKE IN BED. NO COMPLAINTS OF PAIN.
--- NOTE | 2019-01-06 14:38 | NUR ---
Pt. is in bed resting , pastoral care provided,
--- NOTE | 2019-01-06 15:46 | NUR ---
PATIENT DRANK SOME NECTAR THICK CRANBERRY JUICE. SHE IS AWAKE, LAYING IN BED. NO COMPLAINTS
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
--- NOTE | 2019-01-06 18:28 | NUR ---
PATIENT IS IN BED, RESTING.
--- NOTE | 2019-01-06 18:57 | NUR ---
PATIENT IS ALERT. SHE IS ORIENTED TO FOLLOWING DIRECTIONS AND SELF. PATIENT FELL/SLID OUT OF BED TODAY WHILE ATTEMPTING TO GET UP TO USE THE RESTROOM. SHE IS NOT ORIENTED TO HER OWN ABILITY. SHE SLID FROM THE BED, HEAD/HAND FIRST TO THE FLOOR. SHE WAS LIFTED WITH THE KATHERINE BACK TO BED. SUPERFICIAL FLOOR BURN TO THE FOREHEAD. PATIENT DOESNT COMPLAIN OF PAIN RIGHT NOW. BED ALARM IS ON.
--- NOTE | 2019-01-06 19:16 | NUR ---
Comfort Care Visit this evening. Pt is resting in bed with her eyes open upon arrival. Pt denies pain at this time. Pt engageds in difficult to understand and sometimes nonsensical conversation. Offered gentle voice and therapeutic touch by holding hand and rubbing shoulder. Pt appears comfortable and no S/S of distress at this time. Spoke with bedside nurse Sylvia and discussed case. Palliative Care will remain available.
--- NOTE | 2019-01-06 23:54 | NUR ---
01/06/19 9699 AWAKE AND ASKING FOR "A ISBELL". RN ATTEMPTING TO FIND OUT WHAT SHE NEEDED BUT JUST SEEMS RESTLESS. WILL REVIEW MAR.
--- NOTE | 2019-01-07 00:01 | NUR ---
01/06/19 2625 STILL AWAKE AND RESTLESS. SEE MAR FOR MED GIVEN
--- NOTE | 2019-01-07 06:08 | NUR ---
01/07/19 0606 REPOSITIONED IN BED. ORAL AND SEUN-CARE GIVEN. SLEPT AFTER PAIN MED GIVEN EARLIER.
--- NOTE | 2019-01-07 08:22 | NUR ---
SHE IS SLEEPING LIGHTLY FLAT ON HER BACK. SHE LOOKS COMFORTABLE. APICAL IRREGULAR WITH NORMAL RATE. NO WHEEZES. NO CYANOSIS. NO EDEMA.
--- NOTE | 2019-01-07 09:42 | NUR ---
PATIENT DID NOT EAT BREAKFAST THIS SHIFT. WHEN I WAS TRYING TO ASSIST PATIENT WITH BREAKFAST SHE WOULD NOT OPEN MOUTH. I TRIED MULTIPLE ITEMS AND EXPLAINED TO APTIENT AND OFFERED MULTPILE ITEMS.
--- NOTE | 2019-01-07 11:13 | NUR ---
1000 NOTE SHE HAS BEEN SLEEPY THIS MORNING UNTIL ABOUT 1030. SHE HAS BEEN A LITTLE RESTLESS BUT ABLE TO ANSWER QUESTIONS FROM A COUNTY COMPLETIONS ENGINEER. HER GUARDIAN ASKED FOR THE COMPLETIONS ENGINEER TO COME. SHE ALSO INTERACTED WITH THE PRE PRESS OPERATOR WHEN BEING CHANGED. UNABLE TO TAKE IN ANY BREAKFAST D/T HER LOC BUT WILL TRY TO FEED HER LUNCH WHEN IT COMES.
--- NOTE | 2019-01-07 11:51 | NUR ---
SHE ACTUALLY RECEIVED AN EARLY LUNCH TRAY AND WAS JUST FED SOME PUREED CHICKEN, PEAS, AND SOME VANILLA PUDDING. SHE MENTIONED THE ACCOUNTING ASSISTANT THAT WAS HERE ASKING HER QUESTIONS ABOUT HER WILFRIDO CARD. HER SPEACH IS SLURRED. HER LOC IS WNL. SHE SAYS SHE IS COMFORTABLE.
--- NOTE | 2019-01-07 13:30 | NUR ---
Pt. is taken care of and pastoral care is provided.
--- NOTE | 2019-01-07 14:05 | NUR ---
HAS A H/A. TYLENOL TO BE GIVEN. NO OTHER COMPLAINTS.
--- NOTE | 2019-01-07 17:30 | NUR ---
1600 NOTE NO PAIN. NO COMPLAINTS. NO CHANGES.
--- NOTE | 2019-01-07 18:11 | NUR ---
SHE IS GOING TO TRY TO EAT NOW. THE WRECKING CRANE ENGINE OPERATOR IS THERE TO FEED HER. SHE TURNED IT DOWN EARLIER. NO OTHER CHANGES. TYLENOL GIVEN X1 TODAY AND WAS EFFECTIVE FOR HER H/A.
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
--- NOTE | 2019-01-08 06:03 | NUR ---
SHIFT SUMMARY COMFORT CARE STATUS MAINTAINED TONIGHT. PT HAS SLEPT COMFORTABLY THROUGH THE NIGHT, COVERED BY BLANKET BY MIXER HELPER PER REQUEST. PT HAS BEEN MORE VERBAL, WITH GARBLED SPEECH ABLE TO MAKE NEEDS KNOWN AND RESPONDS APPROP/CONTINUES CONVERSATION APPROP. BEDBOUND, Q2H TURNS, ALARM ON FOR SAFETY. PT DOES NOT DISPLAY OR VERBALIZE ANY SIGNS OF PAIN, ANXIETY OR DISCOMFORT. WILL CONT TO MONITOR AND PROVIDE COMFORT MEASURES UNTIL MAINTAINED BY ONCOMING RN.
--- NOTE | 2019-01-08 14:06 | NUR ---
Pt. in bed and her nurse in the room attending to her needs,pastoral care is offered.
--- NOTE | 2019-01-08 17:50 | NUR ---
SHIFT SUMMARY: PT IS ALERT TO SELF AT BASELINE AND HAS DENIED PAIN ALL SHIFT. SHE REMAINS INC OF B/B AND A TOTAL ASSIST FOR TOILETING. PT HAS BEEN TURNED/RE-POSITIONED Q 2 HOURS AND POSITIONED WITH PILLOWS TO OFFLOAD PRESSURE. HAIR WAS COMBED AND ORAL CARE COMPLETED BY THIS NURSE.
--- NOTE | 2019-01-08 18:20 | NUR ---
Comfort Care visit this evening. Pt is resting in bed and denies pain at this time. Pt watching television. Pt reports no concerns at this time. Pt appears comfortable with no S/S of distress at this time. Palliative Care will remain available.
--- NOTE | 2019-01-09 04:25 | NUR ---
SHIFT SUMMARY. PT WAS QUITE TALKATIVE THIS SHIFT. HONEY THICK WATER AND APPLE JUICE OFFERRED TO PT MULTIPLE TIMES, BUT WAS REFUSED. ORAL CARE WAS ALSO REFUSED MOST TIMES IT WAS OFFERRED. NO COMPLAINTS OF PAIN WERE MADE THIS SHIFT, AND PT STILL ABLE TO REPOSITION HERSELF ADEQUATELY. PT REMAINED SAFE AND IN BED DURING THE SHIFT. NO OTHER COMPLAINTS AT THIS TIME. WILL CONTINUE TO MONITOR.
--- NOTE | 2019-01-09 10:00 | NUR ---
PT QUIET. SOME SLURRED RESP. DENIES PAIN. ATTENDS CDI. TURNED TO RT SIDE. ORAL CARE PERFORMED. NO OTHER CONCERNS AT THIS TIME. BED IN LOW POSITION, CALL LITE IN REACH, BED ALARM ON FOR SAFETY
--- NOTE | 2019-01-09 17:05 | NUR ---
PT PLEASANT TODAY. STATES SORRY FOR BM IN ATTENDS. EXPLAINED IS OKAY. NO NEW COMPLAINTS TODAY. BED IN LOW POSITION, CALL LITE IN REACH. BED ALARM ON FOR SAFETY
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
--- NOTE | 2019-01-10 05:08 | NUR ---
SHIFT SUMMARY PT DIDN'T COMPLAIN OF ANY PAIN OR DISCOMFORT DURING THE SHIFT. PT REFUSED ORAL CARE HALF THE TIME. PT REMAINED IN BED, WITH BED IN LOW POSITION. WILL CONTINUE TO MONITOR.
--- NOTE | 2019-01-10 12:00 | NUR ---
PT. SITTING UP IN BED BEING FED BY FLUID POWER MECHANIC. PT. KEEPS FLINGING HER LEG OF THE EDGE OF THE BED.
--- NOTE | 2019-01-10 14:00 | NUR ---
PT. SLEEPING SITTING UP IN BED AT THIS TIME.
--- NOTE | 2019-01-10 18:34 | NUR ---
PT. KEEPS SLINGING HER LEG OVER THE SIDE OF THE BED. DENIES PAIN, SPEECH GARBLED . NO NOTEABLE CHANGES THIS SHIFT.
--- NOTE | 2019-01-10 18:37 | NUR ---
NO NOTEABLE CHANGES THIS SHIFT.
--- NOTE | 2019-01-11 03:03 | NUR ---
SHIFT SUMMARY PT CONTINUES TO BE ABLE TO MAKE HER NEEDS KNOWN. PT'S BED ALARM IS NOT WORKING. PT WAS ABLE TO TURN AND PIVOT TO THE CHAIR IN ORDER FOR STAFF TO ATTEMPT TO REZERO THE BED. THE PT WAS SAFELY RETURNED TO BED, BUT THE BED ALARM STILL DOESN'T WORK. A TEMPORARY ALARM IS IN PLACE TO MAINTAIN PT SAFETY. NO OTHER COMPLAINTS FROM PT AT THIS TIME. WILL CONTINUE TO MONITOR.
--- NOTE | 2019-01-11 08:00 | NUR ---
PT. BEING FED BREAKFAST BY MARIA GUADALUPE
--- NOTE | 2019-01-11 10:00 | NUR ---
PT. SLEEPING AT THIS TIME.
--- NOTE | 2019-01-11 14:00 | NUR ---
PT. SLEEPING ONCE AGAIN
--- NOTE | 2019-01-11 16:00 | NUR ---
PT. STARING AT TV. NO CHANGES.
--- NOTE | 2019-01-11 19:15 | NUR ---
PT. SLEEPING, NO NOTEABLE CHANGES THIS SHIFT.
--- NOTE | 2019-01-11 20:12 | NUR ---
1944 ASSUMED CARE OF PATIENT; PATIENT LAYING IN BED IN NO APPAARENT DISTRESS; PT DENIES PAIN. RESPIRATIONS EVEN UNLABORED. WARM BLANKET DECLINED. BED LOW LOCKED ALARMED. CALL ISBELL WITHIN REACH
--- NOTE | 2019-01-12 12:05 | NUR ---
PATIENT SLEEPING AT THIS TIME. FALL [id number] IN PLACE. NO S/S OF PAIN ASSESSED. CALL LIGHT WITHIN REACH.
--- NOTE | 2019-01-12 12:05 | NUR ---
PATIENT REFUSING BREAKFAST. REPOSITIONS SELF IN BED. ATTENDS DRY AT THIS TIME. TAB ALARM FOR SAFETY.
--- NOTE | 2019-01-12 12:06 | NUR ---
PATIENT AWAKE, DENIES ANY PAIN OR NEEDS AT THIS TIME. ATTENDS DRY. CALL LIGHT WITHIN REACH.
--- NOTE | 2019-01-12 14:51 | NUR ---
ATTENDS CHANGED AND PATIENT REPOSITIONED. PATIENT DENIES ANY PAIN OR NEEDS AT THIS TIME.
--- NOTE | 2019-01-12 16:00 | NUR ---
PATIENT SLEEPING AT THIS TIME. NO S/S OF PAIN ASSESSED.
--- NOTE | 2019-01-12 17:51 | NUR ---
PATIENT FED DINNER, ATTENDS CHANGED. PATIENT DENIES ANY PAIN OR DISCOMFORT.
--- NOTE | 2019-01-13 05:44 | NUR ---
CONTOUR BAND SAW OPERATOR VERTICAL SUMMARY NO ACUTE CHANGES THIS SHIFT. PT AAOX2-3. CONTINUES ON COMFORT CARE. REPOSITIONED AND ATTENDS CHANGED FREQUENTLY. PT DENIES PAIN, N/V, SOB. WILL CONTINUE TO MONITOR.
--- NOTE | 2019-01-13 11:43 | NUR ---
Met pt. in bed relaxed and restting encouraged pt prayed and blessed her .
--- NOTE | 2019-01-13 17:24 | NUR ---
PATIENT DID NOT EAT DINNER THIS SHIFT. WHEN TRAY WAS OFFERED PATIETN DECLINED AND STATED NOT HUNGRY.
--- NOTE | 2019-01-13 18:29 | NUR ---
SHIFT SUMMARY NO ACUTE CHANGES THIS SHIFT. PT DECLINED DINNER TRAY. NO COMPLAINTS OF PAIN OR DISCOMFORT THIS SHIFT. WAITING FOR PLACEMENT. CALL LIGHT IN REACH. WILL CONTINUE TO MONITOR AND REPORT TO ONCOMING RN.
--- NOTE | 2019-01-14 04:08 | NUR ---
SHIFT SUMMARY PT IS ALERT AND DISORIENTED TO TIME. PT ABLE TO MAKE NEEDS KNOWN AND REPOSITION HERSELF. PT CONTINUES TO HAVE A PERSONAL ALARM ON TO ENSURE SAFETY. NO COMPLAINTS OF DISCOMFORT THIS SHIFT. INCONTINENCE CARE GIVEN NEEDED. WILL CONTINUE TO MONITOR PT.
--- NOTE | 2019-01-14 09:51 | NUR ---
PT STATES THAT SHE DOES NOT WANT TO BE WOKEN TO BE REPOSITIONED.
--- NOTE | 2019-01-14 11:48 | NUR ---
Pt. is in bed resting pastoral care provided
--- NOTE | 2019-01-14 15:38 | NUR ---
Pt visit this afternoon. Pt engages in non sensical difficult to understand conversation. Pt denies pain at this time. Pt appears comfortable with no S/S of distress. Palliative Care will remain available.
--- NOTE | 2019-01-14 17:12 | NUR ---
PATIENT DID NOT WANT TO EAT DINNER THIS SHIFT. PATIENT DECLINED TO EAT. STATED SHE WAS NOT HUNGRY.
--- NOTE | 2019-01-14 17:13 | NUR ---
PATIENTS ATTENDS WERE CHECKED AND THEY WERE CLEAN AND DRY. PATIENT WAS ALSO REPOSTIONED.
--- NOTE | 2019-01-14 18:24 | NUR ---
SHIFT SUMMARY PT ON COMFORT CARE. PT REFUSED REPOSITIONING WHILE SLEEPING AND STATES THAT SHE DOESNT WANT TO BE WOKEN UP AT NIGHT FOR REPOSITIONING. PT DENIED PAIN OR ANXIETY THIS SHIFT THOUGH AT TIMES HER LEGS WERE OVER THE SIDE OF THE BED. PT DOES HAVE RA UNDER L. ARMPIT. CLEANED AND DRIED. BED IN LOW POSITION, CALL LIGHT WITHIN REACH. NOT ABLE TO SET ALARM FOR BROKEN BED.
--- NOTE | 2019-01-15 07:14 | NUR ---
SHIFT SUMMARY PT HAD NO CLINICAL CHANGE. PT IS STILL ABLE TO MAKE HER NEEDS KNOWN. NO COMPLAINTS OF PAIN. NO NEW SKIN BREAKDOWN. WILL CONTINUE TO MONITOR.
--- NOTE | 2019-01-15 07:36 | NUR ---
ASSUMED CARE OF PT- PT ASLEEP AT THE TIME OF SHIFT CHANGE. BEDSIDE REPORT COMPLETED WITH NIGHT RN PEYMAN. PER REPORT PT IS COMFORT CARE WITH PLANS TO DC ON HOSPICE, HOWEVR PLACEMENT HAS BEEN AN ISSUE. PT IS MOSTLY NON VERBAL AND REQUIRES FEEDING ASSISTANCE.
--- NOTE | 2019-01-15 07:39 | NUR ---
PT OPENED HER EYES WHEN STAFF SPOKE TO HER, NO REAL EXPRESSION OF PAIN NO S&S OF DISTRESS, SKIN NOT HOT TO TOUCH. PT WILL RECIEVE A BED BATH TODAY, HAS STRONG YEAST SMELL IN HER ARM PITS, VERY RED AND ODOROUS. NYSTATIN POWDER AT THE BEDSIDE WILL APPLY AFTER THE BATH. PT CHANGED AND REPOSITIONED TO BACK WITH HIPS FLOATED. WILL CTM.
--- NOTE | 2019-01-15 09:40 | NUR ---
PROCUREMENT ANALYST ASSISTING PT WITH EATING, PT NOT ABLE TO VERBALLY COMMUNICATE, PER REPORT FROM PROCUREMENT ANALYST IT IS DIFFICULT TO TELL WHEN THE PT WANTS MORE FOOD, FEEDING COMPLETED. PT SITTING UP IN BED FOR THE MEAL, NO S&S OF DISTRESS NOTED.
--- NOTE | 2019-01-15 11:51 | NUR ---
Pt. is lying in bed resting, offered prayer and support.
--- NOTE | 2019-01-15 15:02 | NUR ---
Comfort Care Visit: Pt resting in bed upon arrival. Pt denies pain at this time. Pt engaged in nonsensical conversation. Assisted INSURANCE AGENTS SUPERVISOR with providing bed bath and repositioning. Pt appears comfortable with no S/S of distress. Palliative Care will remain available.
--- NOTE | 2019-01-15 18:36 | NUR ---
SHIFT SUMMARY- PT REPOSITIONED FREQUENTLY T/O THE SHIFT, SHE TENDS TO RETURN TO HER BACK EVEN WHEN PILLOWS ARE PLACED TO AID IN COMFORT WITH POSITIONING. PT HAS A YEAST RASH IN THE ARM PIT, LEFT IS THE WORST, BED BATH DONE AND THE AREA WAS CLEANED AND DRIED AND NYSTATIN WAS APPLIED, DRY PILLOW CASE PLACED IN THE AREA TO ABSORB MOISTURE FROM THE AFFECTED AREA. PT WAS EVALUATED FOR PLACEMENT TODAY BY ALEJANDRA. NO ACUTE CHANGES T/O THE SHIFT.
--- NOTE | 2019-01-16 05:01 | NUR ---
SHIFT SUMMARY PT CONTINUES TO BE ABLE TO MAKE HER NEEDS KNOWN. PT COMPLAINED OF PAIN IN HER KNEES, AND RECIEVED TYLENOL CRUSHED IN APPLESAUCE TO GOOD EFFECT. NO OTHER COMPLAINTS FROM THE PT AT THIS TIME. WILL CONTINUE TO MONITOR AND MAINTAIN PT SAFETY.
--- NOTE | 2019-01-16 08:02 | NUR ---
ASSUMED CARE OF PT- RECIEVED REPORT FROM NIGHT NAI MORLEY. PT IN BED SLEEPING ON HER LEFT SIDE. PER REPORT DESPITE REPOSITIONING PT FREQUENTLY RETURNED TO THIS POSITION. PT HAS NO S&S OF PAIN OR DISTRESS NOTED AT THIS TIME WILL CTM.
--- NOTE | 2019-01-16 10:50 | NUR ---
PT LEFT ARMPIT CLEAN AND DRIED PLACED NYSTATIN POWDER AND A CCLEAN DRY PILLOW CASE, REDNESS SEEMS A LITTLE IMPROVED FROM YESTERDAY. WILL CTM.
--- NOTE | 2019-01-16 12:00 | NUR ---
PT REPOSITIONED TO SIT UP IN BED TO EAT LUNCH
--- NOTE | 2019-01-16 16:00 | NUR ---
REPOSITIONED BY VENDING MACHINE MECHANIC, NO S&S OF DISTRESS. WILL CTM.
--- NOTE | 2019-01-16 17:58 | NUR ---
PT SAT UP IN BED TO EAT DINNER. NO S&S OF PAIN OR DISTRESS.
--- NOTE | 2019-01-16 19:41 | NUR ---
SHIFT SUMMARY- PT HAS HAD NO ACUTE CHANGE T/O THE SHIFT. NO S&S OF DISTRESS NOTED AT THIS TIME. PASSED ON IN BEDSIDE REPORT.
--- NOTE | 2019-01-17 06:23 | NUR ---
NO ASSESSMENT CHANGES. NO PRNS GIVEN. PT SLEPT MOST OF THE NIGHT. NYSTATIN FOR L ARMPIT. AWAITING PLACEMENT.
--- NOTE | 2019-01-17 18:00 | NUR ---
SHIFT SUMMARY: PT IS A/O TO SELF AND SITUATION AT TIMES AT BASELINE. SHE HAS NO C/O PAIN. PT REMAINS INC OF B/B AND TOTAL ASSIST FOR ALL CARE AND ADLS. PT RE-POSITIONED Q 2 HOURS BUT SHE CONTINUES TO REPOSITION HERSELF IN THE BED PER USUAL. NO ACUTE CHANGES NOTED.
--- NOTE | 2019-01-18 04:55 | NUR ---
SHIFT SUMMARY: 73 Y/O FEMALE RESTED COMFORTABLY ALL SHIFT, COMFORT CARE, ALERT PERSON ONLY, DENIES PAIN OR NAUSEA, CONTACT PRECAUTIONS MAINTAINED FOR MRSA, BED ALARM APPLIED, BED LOW POSITION, CALL LIGHT AT SIDE.
--- NOTE | 2019-01-18 14:15 | NUR ---
Comfort Care Visit: Pt resting in bed with eyes closed. This RN did not disturb Pt at this time. Pt appears comfortable with no S/S of distress at this time. Spoke with bedside nurse Jroge and discussed case. Jorge reports no concerns at this time. Palliative care will remain available.
--- NOTE | 2019-01-18 17:23 | NUR ---
SHIFT SUMMARY: PT IS A/O AT BASELINE TODAY WITH NO C/O PAIN. SHE REMAINS A TOTAL ASSIST WITH CARE AND ADLS AND INC OF B/B. NO ACUTE CHANGES NOTED THIS SHIFT.
--- NOTE | 2019-01-19 04:52 | NUR ---
Shift summary. Pt on comfort care. Pt reposition q 2 hours during the night. Pt incontinent x 2 and changed during shift. No s/s discomfort or need for pain meds noted. No significant changes.
--- NOTE | 2019-01-19 17:02 | NUR ---
SHIFT SUMMARY SHE REQUESTED PAIN CONTROL THIS MORNING, BUT HAS RESTED COMFORTABLY SINCE. SHE HAS HAD TWO BM'S. SHE ATE MOST OF HER LUNCH. AWAITING PLACEMENT. Q 2 TURNS. NYSTATIN POWDER IS FOR THE LEFT ARMPIT. COMFORT CARE ASSESSMENTS Q 2HRS
--- NOTE | 2019-01-20 04:14 | NUR ---
SHIFT SUMMARY: 73 FEMALE RESTED COMFORTABLY ALL SHIFT, DENIES PAIN OR NAUSEA, COMFORT CARE AND CONTACT PRECAUTIONS CONTINUED, BED ALARM APPLIED, BED ALARM APPLIED, CALL LIGHT AT SIDE.
--- NOTE | 2019-01-20 10:20 | NUR ---
Comfort care visit with Jun this morning. She denies any pain except for "my butt hurts." Repositioned Jun to her right side. She is able to turn herself for the most part, placed a pillow under her left hip. Readjusted pillows and straightened her blankets. She speaks very few words, occasionally she will answer a question. She stares at the TV and makes occasional eye contact. She appears to be comfortable. She shakes her head no when asked if she is hungry or thirsty. CM working on a safe discharge plan.
--- NOTE | 2019-01-20 12:23 | NUR ---
PATIENT HAD TOTAL BEDBATH AND WAS PUT IN CHAIR BY PRODUCT EVANGELIST.
--- NOTE | 2019-01-20 12:23 | NUR ---
UP IN CHAIR FOR LUNCH. NO DISTRESS NOTED.
--- NOTE | 2019-01-20 13:36 | NUR ---
Pt. in bed and the nurse in the room attending the pt. wioth her needs, pastoral care provided.
--- NOTE | 2019-01-20 14:45 | NUR ---
PATIENT UP IN CHAIR SLEEPING.
--- NOTE | 2019-01-20 18:02 | NUR ---
NO ACUTE CHANGES TO PATIENT.
--- NOTE | 2019-01-20 18:06 | NUR ---
PATIENT FED DINNER AND PUT BACK TO BED.
--- NOTE | 2019-01-21 04:45 | NUR ---
PT has been quiet nonverbal resting qietly with [employer] channel playing softly. She has not eaten or drank this shift charting said she took 50% pureed diet. No complaints appears comfortable and resting on rounds.
--- NOTE | 2019-01-21 10:18 | NUR ---
PATIENT SLEEPING, NO DISTRESS NOTED.
--- NOTE | 2019-01-21 10:19 | NUR ---
PATIENT PUT IN CHAIR BY TURKISH LINE ATTENDANT FOR BREAKFAST.
--- NOTE | 2019-01-21 11:02 | NUR ---
Comfort Care Visit: Pt is resting in recliner chair today. She is non verbal today but appears comfortable with no S/S of distress. Offered gentle voice and therapeutic thouch by rubbing shoulder with still no verbal response. Spoke with bedside nurse Paz and discussed case. No concerns reported at this time. Palliative care will remain available.
--- NOTE | 2019-01-21 14:39 | NUR ---
PUT BACK IN BED
--- NOTE | 2019-01-21 14:39 | NUR ---
FIRE LOSS PREVENTION ENGINEER FED PATIENT LUNCH WHILE UP IN CHAIR.
--- NOTE | 2019-01-21 15:04 | NUR ---
Pt. is in bed restingn, pastoral care provided
--- NOTE | 2019-01-22 05:20 | NUR ---
Pt continues to deny pain or acute distress. Calm quiet needs 2 max assist to turn and reposition, toileting. She is incontinent of bowel and bladder. Unable to use call evans system. guardianship letter in chart. DC planning to dc to foster care or facility [facility]. HX this stay of ESBL and MRSA. Minor skin issues buttocks from moisture and self inflicted scratches.
--- NOTE | 2019-01-22 10:00 | NUR ---
Attempted to see Pt and staff currently providing care and will transfer her to chair. Pt appears comfortable with no S/S of distress. Spoke with bedside nurse Endy and she reports no concerns at this time. Palliative Care will remain available.
--- NOTE | 2019-01-22 14:10 | NUR ---
Pastoral care provided
--- NOTE | 2019-01-22 17:32 | NUR ---
SHIFT SUMMARY NO ACUTE CHANGES. PATIENT DENIES PAIN, NAUSEA, AND SHORTNESS OF BREATH. PATIENT UP IN CHAIR MOST OF DAY. PATIENT'S TEMPORARY GUARDIAN MAULIK VISITED WITH HER. POLICE DETECTIVES ALSO SPOKE WITH PATIENT REGARDING ONGOING FRAUD INVESTIGATION. PATIENT EATING AND DRINKING WELL. CALL LIGHT IN REACH.
--- NOTE | 2019-01-22 19:25 | NUR ---
ASSUEMED CARE OF PATIENT. PT SITTING UP IN BED. AO2-3, PT KRISTA PAIN, NAUSEA. RESPIRATION EVEN AND UNLABORED ORA. BED LOW AND LOCKED. CALL ISBELL WITHIN REACH. NO IV.
--- NOTE | 2019-01-23 10:47 | NUR ---
BEDBATH GIVEN, BREAKFAST FED TO PATIENT
--- NOTE | 2019-01-23 16:24 | NUR ---
PATIENT SLEEPING,NO DISTRESS NOTED
--- NOTE | 2019-01-23 18:06 | NUR ---
NO ACUTE CHANGES TO PATIENT THIS SHIFT. CALL LIGHT WITHIN REACH
--- NOTE | 2019-01-24 04:20 | NUR ---
MEDICAL FLOOR - COMFORT CARE SUMMARY PATIENT RESTED WELL T/O SHIFT. PATIENT DENIED ANY NEEDS T/O SHIFT AND DENIED ANY PAIN OR DISCOMFORT. PATIENT REPOSITIONED FOR COMFORT Q2 HOURS PRN. NO CHANGES NOTED. CALL LIGHT W/I REACH AND BED ALARM ON T/O SHIFT.
--- NOTE | 2019-01-25 04:44 | NUR ---
SHIFT SUMMARY- PT. COMFORT CARE. SLEPT WELL T/O SHIFT. REPOSITIONED Q2HRS. NO APPARENT DISTRESS NOTED. CALL LIGHT WITHIN REACH AND SIDE RAILS UP X3. WILL CONT TO MONITOR.
--- NOTE | 2019-01-25 17:38 | NUR ---
SHIFT SUMMARY NO ACUTE CHANGES WITH THE PATIENT TODAY.
--- NOTE | 2019-01-26 02:49 | NUR ---
Pt condition remains the same. No s/s pain noted. No prn meds given. . Pt awaiting placement at [facility]. Pt on comfort care.
--- NOTE | 2019-01-26 10:20 | NUR ---
PT C/O PAIN. MED PER EMAR
--- NOTE | 2019-01-26 19:19 | NUR ---
PT PLEASANT SPEAKS VERY LITTLE. DID SPEAK TO ME AT ONE TIME, SAID IS IN PAIN. MEDICATED. AFTER MED, STATES PAIN MUCH BETTER IN LEGS. PT DOES MOVE ABOUT BED MUCH. BED IN LOW POSITIOIN, CALL LITE IN REACH, BED ALARM ON FOR SAFETY
--- NOTE | 2019-01-27 06:17 | NUR ---
SHIFT SUMMARY- PT. REPOSITIONED FOR COMFORT Q2 AND PRN. NO APPARENT DISTRESS NOTED. ATTENDS IN PLACE. CALL LIGHT WITHIN REACH, SIDE RAIILS UP X3, AND BED ALARM ON. WILL CONT TO MONITOR.
--- NOTE | 2019-01-27 14:00 | NUR ---
Pt. lying in bed , mpastoral care provided
--- NOTE | 2019-01-27 17:40 | NUR ---
PT NONRESPONDANT TO ME TODAY. TURN AND CHANGE REGULARLY. DENIES PAIN WHEN ASKED TODAY. NO OTHER CONCERNS AT THIS TIME. BED IN LOW POSITION, CALL LITE IN REACH, BED ALARMM ON FOR SAFETY
--- NOTE | 2019-01-28 07:26 | NUR ---
continues dependent for all adls toileting nutrition hydration
--- NOTE | 2019-01-28 13:43 | NUR ---
PASTORAL care provided
--- NOTE | 2019-01-28 13:44 | NUR ---
Pastoral care provided. . Pt resting.
--- NOTE | 2019-01-28 17:11 | NUR ---
PT REPOSITIONED Q2H. PT INCONTINENT X2. NO PAIN ASSESSED AND NO PRN MEDS ADMINISTERED. CONTINUED COMFORT CARE AND CONTACT PRECAUTIONS. BED ALRM ON, SIDE RAILS UP, CALL LIGHT IN REACH. PT AWAITING D/C TO [facility].
--- NOTE | 2019-01-29 13:36 | NUR ---
Pt. is in bed resting not much change, offered prayers .
--- NOTE | 2019-01-29 18:30 | NUR ---
PT REPOSITIONED Q2H. PT INCONTINENT X1. BEDBATH GIVEN WITH NURSE AND PRO SHOP ATTENDANT. NO PAIN ASSESSED AND NO PRN MEDS ADMINISTERED. CONTINUED COMFORT CARE AND CONTACT PRECAUTIONS. BED ALARM ON, SIDE RAILS UP, CALL LIGHT IN REACH. PT AWAITING D/C TO [facility].
--- NOTE | 2019-01-30 04:44 | NUR ---
SHIFT SUMMARY NO COMPLAINTS OF PAIN OR DISCOMFORT. PT REPOSITIONED ORDERED. PT HAS BEEN COMFORTABLE T/O SHIFT. AWAITING PLACEMENT.
--- NOTE | 2019-01-30 19:26 | NUR ---
SHIFT SUMMARY NO ACUTE CHANGES TO PRESENT THIS SHIFT. PT ON C/C WAITING FOR PLACEMENT. PT INCONTINENT OF BOWEL AND BLADDER. NO C/O PAIN. ABLE TO COMMUNICATE SLOWLY, SOMETIMES SMILES AND LAUGHS. REPOSITIONED PER PROTOCOL. CO-OP WITH CARE. CALL LT IN REACH. BED ALARM ON FOR SAFETY.
--- NOTE | 2019-01-31 05:35 | NUR ---
SHIFT SUMMARY PT REMAINS COMFORTABLE. PT HAS NOT REQUIRED ANY PAIN MANAGEMENT THIS SHIFT. PT REPOSITIONED ORDERED. PT CURRENTLY SLEEPING AND BREATHING EASY. CALL LIGHT IN REACH.
--- NOTE | 2019-01-31 11:48 | NUR ---
0800 NOTE SHE IS ASLEEP AND APPEARS COMFORTABLE. REPORT FROM NIGHT NURSE UNEVENTFUL.
--- NOTE | 2019-01-31 11:50 | NUR ---
1000 NOTE HAS AWAKENED. NOT READY FOR BREAKFAST YET. DENIES PAIN.
--- NOTE | 2019-01-31 12:15 | NUR ---
NO CHANGE. ATTENDS HAVE BEEN CHANGED. READY FOR LUNCH. SHE IS A FEEDER.
--- NOTE | 2019-01-31 12:20 | NUR ---
Visited with Jun this afternoon and assisted HAND SCUDDER with attends change, linen change and repositioning. Jun is alert and talkative during her care today. She has no complaints. PC to continue to follow. CM continues to work with pt's guardian for placement.
--- NOTE | 2019-01-31 16:19 | NUR ---
1400 NOTE SHE ATE LUNCH. NO COMPLAINTS. SHE HAS A GOOD SENSE OF HUMOR. SHE WATCHES TV AND ENJOYS HER LARGE PICTURE WINDOW.
--- NOTE | 2019-01-31 16:20 | NUR ---
1600 NOTE SAYS YES SHE IS COMFORTABLE. PALLIATIVE CARE NURSE ROUNDED ON HER. NO CHANGES.
--- NOTE | 2019-01-31 17:57 | NUR ---
SHE IS COMFORTABLE. SHE DID NOT EAT MUCH DINNER. SHE FLIPPED OFF THE NIGHT CLUB MANAGER MULTIPLE TIMES WHILE TRYING TO FEED HER. WHEN I TALKED TO HER ABOUT IT, SHE SAID SHE DID IT BECAUSE SHE ALWAYS DOES IT. SHE SAID SHE HAS BEEN DOING IT FOR WEEKS BECAUSE SHE IS OLD AND ONRY. I ASKED HER NOT TO DO IT BECAUSE IT IS RUDE. SHE DENIES ANY NEEDS.
--- NOTE | 2019-02-01 06:28 | NUR ---
SHIFT SUMMARY NO ACUTE CHANGES OVERNIGHT. PATIENT HAD NO COMPLAINTS OR CONCERNS. WILL CONTINUE TO MONITOR AND REPORT TO ONCOMING RN.
--- NOTE | 2019-02-01 18:32 | NUR ---
SHIFT SUMMARY PT ON COMFORT CARE. BED BATH THIS SHIFT. PAIN MEDICATION ONCE PER EMAR. DR HASSAN CALLED AT 1013 BECAUSE PT COMPLAINED OF A BURNING SENSATION IN HER THROAT BUT STATED THAT SHE DIDNT THINK IT WAS GERD. NEW ORDERS. PT MEDICATED PER EMAR. PT ALSO UPSET AFTER BED BATH AND THIS AFTERNOON APPEARS MORE SLOW TO RESPOND TO QUESTIONS. BED IN LOW POSITION, CALL LIGHT WITHIN REACH, BED ALARM ON.
--- NOTE | 2019-02-02 05:09 | NUR ---
SHIFT SUMMARY COMFORT CARE MEASURES TONIGHT. PT HAS BEEN QUIET AND RESERVED TONIGHT. BEDBOUND, Q2H TURNS. PT DENIES ANY PAIN OR DISCOMFORT. INCONTINENT OF URINE AND BOWEL. WILL CONT TO MONITOR AND PROVIDE CARE UNTIL PRESUMED BY ONCOMING RN.
--- NOTE | 2019-02-02 13:00 | NUR ---
pt awake and interactive no s/s of discomfort. Review of patient with nursing to see if pt may be improving. they relay she sleeps most of time minimal po intake.
--- NOTE | 2019-02-02 18:23 | NUR ---
SHIFT SUMMARY. PT DENIED ANY COMPLAINTS THIS SHIFT. APPEARS IN NO DISCOMFORT OR DISTRESS.
--- NOTE | 2019-02-03 05:18 | NUR ---
SHIFT SUMMARY COMF CARE MEASURES MAINTAINED. PT APPEARS COMFORTABLE, NO SIGNS OF PAIN, ANXIETY, AIR HUNGER. RESTING IN BED, MOSTLY NONVERBAL WITH OCCASIONAL GARBLED SPEECH. AWAITING MEDICAID FOR PLACEMENT. WILL CONT TO MONITOR AND PROVIDE CARE UNTIL PRESUMED BY ONCOMINGRN.
--- NOTE | 2019-02-03 11:34 | NUR ---
PT WITH INCONTINENT STOOL, INCONTINENCE CARE AND LINEN CHANGE COMPLETED, PT REPOSITIONED. PT DENIES PAIN, SOB, N/V. NO S/X OF DISCOMFORT OR DISTRESS.
--- NOTE | 2019-02-03 19:10 | NUR ---
SHIFT SUMMARY. PT DENIED PAIN, SOB, N/V DURING MOST OF THE SHIFT. WHEN PT WAS ASKED IF HER THROAT HURT, SHE REPORTED YES, MAGIC MOUTHWASH WAS GIVEN, PT REPORTS RELIEF. PT HAD INCONTINENT STOOL. NO NEW CHANGES OR CONCERNS.
--- NOTE | 2019-02-03 20:43 | NUR ---
alert positioned upright in bed, TV on. Answers slowly, pleasant affect
--- NOTE | 2019-02-04 06:36 | NUR ---
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 Continues dependent for all ADLS and toileting, oral intake is none this shift, incontinent of bowel and bladder.
--- NOTE | 2019-02-04 18:52 | NUR ---
SHIFT SUMMARY- PT WITH NO COMPLAINTS T/O THE DAY. UP TO RECLINER FOR PART OF THE DAY. PT COMFORT CARE. AWAITING PLACEMENT. NO ACUTE CHANGES THIS SHIFT.
--- NOTE | 2019-02-05 05:13 | NUR ---
SHIFT SUMMARY COMF CARE MEASURES. NO SIGNS OF DISCOMFORT, AIR HUNGER, PAIN, ANXIETY. PT SLEEPS IN BED TONIGHT, AWAKING DURING REPOSITIONING AND TURNS. WAITING ON PLCEMENT. WILL CONT TO MONITOR AND PROVIDE COMF MEASURES UNTIL PRESUMED BY ONCOING RN.
--- NOTE | 2019-02-05 16:25 | NUR ---
Spiritual Care routine visit: Jun appeared more awake and lucid today. She smiled and said "It's so good to see you again" when I entered room. She does have garbled spech most of the time though. She denies pain or worry and appeared appreciative of prayer and companionship. She became tearful about something she had seen on the TV, and although I did not understand what this was, I was able to res counselor and comfort her until she was smiling again. TV channel placed on music/scenery, and she said she liked watching "this channel." I stayed with Jun for long time offering conversation and comfort. [employer] Analyst Services will remain available.
--- NOTE | 2019-02-05 18:09 | NUR ---
SHIFT SUMMARY- PT COMFORT CARE. PT DENIES ANY COMPLAINTS T/O THE DAY. PT WITH MULTIPLE BM'S THIS SHIFT. NO OTHER ACUTE CHANGES THIS SHIFT.
--- NOTE | 2019-02-05 19:35 | NUR ---
PATIENT RESTINT WATCHING TV IN THE ROOM NO SIGNS OF DISTRESS, SHE DENIES ANY NEEDS
--- NOTE | 2019-02-05 22:00 | NUR ---
PATIENT SLEEPING, COMFORTABLY WITH NO PROBLEMS. CALL LIGHT IN REACH
--- NOTE | 2019-02-06 | NUR ---
PATIENT SLEEPING, NO CHANGES
--- NOTE | 2019-02-06 05:59 | NUR ---
SHIFT SUMMARY: 73 Y/O FEMALE, ON COMFORT CARE. SHE HAS NOT HAD ANY ACUTE CHANGES OR CONCERNS THIS SHIFT. SHE HAS REMAINED COMFORTABLE WITH NO USE OF MEDICATIONS. WILL REPORT TO DAY SHIFT RN.
--- NOTE | 2019-02-06 07:00 | NUR ---
ASSUMED CARE OF PT- BEDSIDE REPORT COMPLETED. PT ON COMFORT CARE AT THIS TIME, HOWEVER SHE IS MORE ALERT THAN IN PREVIOUS DAYS. PT ALERT AND DISORIENTED. NO S&S OF DISTRESS OR PAIN NOTED AT THIS TIME WILL CTM.
--- NOTE | 2019-02-06 11:13 | NUR ---
OFFERED TO GET THE PT UP INTO THE CHAIR BEFORE LUNCH THE PT SMILED AND SAID "YOU'RE A PUSHY ONE AREN'T YOU." PT SEEMS TO BE PAIN FREE AT THIS TIME, STATING THAT SHE IS "OK." PT DID C/O SOME ITCHING WHEN STAFF WERE CHANGEING HER. PT USES COLORFUL LANGUAGE FREQUENTLY, NOT WITH MALICE.
--- NOTE | 2019-02-06 12:33 | NUR ---
NO S&S OF DISTRESS NOTED AT THIS TIME. PT IS FREQUENTLY WIGGLING AND SQUIRMING IN THE BED, HOWEVER PT STATES SHE DOES NOT NEED TO MOVE OR REPOSITION AT THIS TIME. PT MOVES FREQUENTLY.
--- NOTE | 2019-02-06 16:34 | NUR ---
PT ATTENDS DRY- AID REPOSITIONED AND CHANGES FREQUENLY. PT HAS HAD 2 BMS TODAY.
--- NOTE | 2019-02-06 19:24 | NUR ---
SHIFT SUMMARY- PT ALERT, NOT ORIENTED. Q2 TURN, NO S&S OF DISTRESS, DENIES PAIN, REFUSED TO GET OUT OF BED INTO THE RECLINER TODAY WHEN OFFERED, WILL OFFER AGAIN TOMORROW, PASSED ON IN BEDSIDE REPORT TO NIGHT NAI MCKENNA.
--- NOTE | 2019-02-06 19:35 | NUR ---
PATIENT RESTING IN HER ROOM, ATTENDS IS DRY. WATER OFFERED. NO SIGNS OF DISTRESS. CALL LIGHT IN REACH
--- NOTE | 2019-02-06 20:30 | NUR ---
NO CHANGES IN THE LAST 2 HOURS, REPOSITIONED, ATTENDS CHECKED.
--- NOTE | 2019-02-07 02:02 | NUR ---
PATIENT REPOSITIONED, NO ACUTE CHANGES. OR CONCERNS.
--- NOTE | 2019-02-07 04:15 | NUR ---
NO ACUTE CHANGES OR CONCERNS TO NOTE. CALL LIGHT IN REACH.
--- NOTE | 2019-02-07 06:10 | NUR ---
SHIFT SUMMARY: PATIENT RESTING THROUGHOUT THE NIGHT WITH NO CONCERNS OF DISTRESS. SHE WAS REPOSITIONED, GIVEN WATER, AND ATTENDS CHANGES PRN. CALL LIGHT REMAINED WITH IN REACH. NO ACUTE CHANGES TO REPORT. WILL REPORT TO DAY SHIFT RN.
--- NOTE | 2019-02-07 07:00 | NUR ---
ASSUMED CARE OF PT- PT STILL COMFORT CARE, NO S&S OF DISTRESS NOTED AT THIS TIME, PT IN BED SLEEPING LEFT SIDE LYING.
--- NOTE | 2019-02-07 11:00 | NUR ---
PT REPOSITIONED FOR EATING LUNCH ASSISTED TO EAT BY THE MOLD STAMPER.
--- NOTE | 2019-02-07 13:00 | NUR ---
PT REPOSITIONED AGAIN, VERY FIDGETY TODAY, DENIES PAIN OR DISCOMFORT.
--- NOTE | 2019-02-07 18:39 | NUR ---
SHIFT SUMMARY- PT ALERT AND NOT ORIENTED. PT HAS NO S&S OF DISTRESS, MORE MOBILE IN BED TODAY THAN PREVIOUS, PT STILL REFUSED TO GET UP AND INTO THE CHAIR TODAY. NO CHANGES SINCE PREVIOUS NOTES.
--- NOTE | 2019-02-07 18:42 | NUR ---
PERSONAL CARE DONE BY HOUSEKEEPING ROOM ATTENDANT PRIOR TO ASSESSMENT
--- NOTE | 2019-02-08 05:51 | NUR ---
SHIFT SUMMARY NO ASSESSMENT CHANGES. NO C/O SOB, NAUSEA, OR PAIN. NO IV ACCESS. NO PRNS GIVEN. PT REPOSITIONED, LIKES TO BE ON L SIDE. WAITING FOR PLACEMENT.
--- NOTE | 2019-02-08 08:35 | NUR ---
ASSUMED CARE OF PT- PT HAS HAD NO CHANGE SINCE PREVIOUS STILL AWAITING PLACEMENT, YEAST RASH NOTED ON MORNING ASSESSMENT CLEANED DRIED AND APPLIED NYSTATIN PWDR LEFT ARM PIT.
--- NOTE | 2019-02-08 18:09 | NUR ---
pt comfortable active in bed
--- NOTE | 2019-02-08 19:48 | NUR ---
SHIFT SUMMARY- PT HAS HAD NO SIGNIFICANT CHANGE STILL AWAITING PLACEMENT, ON COMFORT CARE.
--- NOTE | 2019-02-09 04:41 | NUR ---
SHIFT SUMMARY PT ADMITTED FOR ACUTE CVA. SHE IS A DNR COMFORT CARE PT. DIET PUREE, ASP PRECAUTIONS, NO MIXED CONSISITENCIES, HONEY THICK. SHE HAS APPEARED COMFORTABLE ALL NIGHT AND HAS NOT NEEDED PAIN INTERVENTION. SHE TURNS SELF FREQUENTLY MORE OFTEN THAN 2 HOURS. WILL CONTINUE TO MONITOR.
--- NOTE | 2019-02-09 08:12 | NUR ---
PT RESTING QUIETLY. ABLE TO MAKE KNOWN NO PAIN @ THIS TIME. SMILES WITH CARE. HEDGE FUND TRADER IN TO ASSIST W BF.
--- NOTE | 2019-02-09 09:47 | NUR ---
PATIENT DID NOT WANT TO EAT BREAKFAST THIS SHIFT. WHEN OFFERED TRAY SHE DECLINED. WHEN ASKED IF SHE WAS HUNGRY SHE STATED NO. RN NOTIFIED.
--- NOTE | 2019-02-09 11:37 | NUR ---
PATIENTS ATTENDS WERE CHECKED AND THEY WERE CLEAN AND DRY. PATIENT WAS REPOSITIONED.
--- NOTE | 2019-02-09 15:41 | NUR ---
SUMMARY PT CONTINUES WITH COMFORT CARE. SHE IS APHASIC HOWEVER ABLE TO NOD YES/NO TO SIMPLE QUESTIONS. SHE STATE NO PAIN T/O DAY. SHE MINIMALLY INTERACTS. L SIDED WEAKNESS, USES L ARM MINIMALLY. SHE TURNS HERSELF IN BED FROM TIME TO TIME. TOLL BRIDGE ATTENDANT HAS ASSISTED HER WITH ALL MEALS, DIET PUREED/HONEY THICK.
--- NOTE | 2019-02-10 05:44 | NUR ---
SHIFT SUMMARY COMFORT CARE STATUS. NO ACUTE CHANGES. DENIES PAIN, DENIES ANXIETY. REPOSITION SELF IN BED. INCONTINENT OF BOWEL AND BLADDER. WILL CONT TO MONITOR AND PROVIDE CARE UNTIL PRESUMED BY ONCOMING RN
--- NOTE | 2019-02-10 16:36 | NUR ---
02/10/19 1600 returned to bed with kalyan lift . 2 assists. attends changed fro urine and small bm.. pericare done and cream applied to anal area. pt had fed her self all of her lunch.. she had to be suctioned after she eat her lunch after cough up some of her lunch and mucus.
--- NOTE | 2019-02-10 16:53 | NUR ---
SHIFT SUMMARY: PT IS AT BASELINE TODAY WITH NO C/O PAIN. WAS JUST UP TO HER RECLINER FOR BREAKFAST AND THE MORNING AND WAS ASSISTED BACK TO BED. SHE HAS BEEN WATCHING TV THROUGHOUT THE DAY. PT REMAINS INC OF B/B.
--- NOTE | 2019-02-11 00:08 | NUR ---
PT able to communicate, speech slow soft. Incontinent of 3rd bowel movement today
--- NOTE | 2019-02-11 04:39 | NUR ---
73 year old Female sp acute cva continues on comfort measures with minimal complaints. and Spouse was [employer]. 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 Totally dependent for adls toileting feeding. Room air, on pureed diet with thickened liquids. No oral intake this shift. Incontinent of bowel large amt and bladder. Skin intact. listens to TV at times she is nonverbal other times speaks slowly and softly. Pleasant
--- NOTE | 2019-02-11 08:07 | NUR ---
A/O THIS MORNING. SPEECH SLURRED SLIGHTLY AND SLOW. REQUESTING A CUP OF COFFEE. THICK IT PLACED ORDERED AND GIVEN TO PT. LS DIMINISHED AT BASES. DOES TEND TO COUGH WITH EVEN THICKENED FLUIDS. HOB AT 90 DEGREES. HS RR/R. NO EDEMA. PLEASANT AND COOP WITH CARE.
--- NOTE | 2019-02-11 13:20 | NUR ---
Met . pt. sitting in a chaire relaxed and having some snacks, offered some prayers and blessings.
--- NOTE | 2019-02-11 19:41 | NUR ---
shlomo ask for case confrence on pt progression.
--- NOTE | 2019-02-12 05:15 | NUR ---
SHIFT SUMMARY NO ISSUES NOTED. PO BENEDRYL ORDERED FOR ITCHING AT TIMES ALL OVER. PT DENIED ANY PAIN OR DISCOMFORT. PT ABLE TO MAKE NEEDS KNOWN. CALL LIGHT IN REACH.
--- NOTE | 2019-02-12 10:20 | NUR ---
Comfort Care Visit: Pt resting in bed and appears comfortable. Pt denies pain and dyspnea. Pt is non sensical but pleasantly confused. Pt reports no concerns at this time. Palliative Care will remain available.
--- NOTE | 2019-02-12 10:46 | NUR ---
Pt in bed resting seems to be doing much better responted fine offered some prayers.
--- NOTE | 2019-02-12 11:21 | NUR ---
TURNED AND CHANGED WITH BARREL LATHE OPERATOR. PATIENT COMFORTABLE.
--- NOTE | 2019-02-12 11:25 | NUR ---
CHANGED PATIENT. SAT UPRIGHT IN BED IN PREPERATION FOR LUNCH MEAL. COMFORTABLE. CHATTING WITH STAFF.
[2019-02-12] MEDS ORDERED: ACET325 PO (11:56)
[2019-02-12] MEDS ORDERED: MORP20L SL (11:57)
[2019-02-12] MEDS ORDERED: ATROPINE SULFATE2 ML SL (11:57)
[2019-02-12] MEDS ORDERED: Transderm-Scop1 EACH TD (11:58)
--- NOTE | 2019-02-12 13:39 | NUR ---
PATIENT DISCHARGED TO [facility]. GUARDIAN WITH PATIENT UPON TRANSFER. ATTEMPTED TO CALL REPORT TO FACILITY. LEFT A MESSAGE WITH FACILITY FOR A RETURN CALL. NO ACUTE ISSUES NOTED.
== END 2019-02-12 13:39 | DRG 64 ==
LOC: ER 19:02 → MEDS 21:08 → ENPENDDIS 02-12 10:42 → MEDS 02-12 13:39
PROVIDERS: Emergency Medicine; Family Medicine; Internal Medicine; Nurse Practitioner Acute Care; ADMIT Hospitalist
DX: I63.81 Other cerebral infarction due to occlusion or stenosis of small artery (principal); A41.9 Sepsis, unspecified organism; G92 Toxic encephalopathy; R65.20 Severe sepsis without septic shock; G81.94 Hemiplegia, unspecified affecting left nondominant side; I48.20 Chronic atrial fibrillation, unspecified; E87.0 Hyperosmolality and hypernatremia; G93.40 Encephalopathy, unspecified; I13.0 Hypertensive heart and chronic kidney disease with heart failure and stage 1 through stage 4 chronic kidney disease, or unspecified chronic kidney disease; I50.32 Chronic diastolic (congestive) heart failure; R47.81 Slurred speech; N18.3 Chronic kidney disease, stage 3 (moderate); E11.22 Type 2 diabetes mellitus with diabetic chronic kidney disease; F01.50 Vascular dementia, unspecified severity, without behavioral disturbance, psychotic disturbance, mood disturbance, and anxiety; Z91.14 Patient's other noncompliance with medication regimen; Z51.5 Encounter for palliative care; E87.6 Hypokalemia; I69.392 Facial weakness following cerebral infarction; B37.2 Candidiasis of skin and nail
CPT/HCPCS: 36415; 70450; 80048; 80053; 80061; 80069; 82947; 83036; 83735; 84443; 84478; 85025; 85027; 85610; 85730; 87081; 92523; 92526; 92610; 93005; 93010; 94762; 97110; 97112; 97162; 97166; 97530; 97535; 99285-25; A9270; J0360; J1644; J1650; J3480; J7030

== ENCOUNTER 2019-03-05 09:54 | Emergency (ER) | payer MEDICARE, OTHER ==
[~2019-03-05] VITALS: Ht 167.6 cm; Wt 68.0 kg
[~2019-03-05 09:54] MED LIST changes: +ATROPINE SULFATE2 ML SL; +MORP20L SL; +Transderm-Scop1 EACH TD
== END 2019-03-05 15:56 | disposition home or self-care (01) ==
LOC: ER 09:54
DX: S01.81XA Laceration without foreign body of other part of head, initial encounter (principal); E11.22 Type 2 diabetes mellitus with diabetic chronic kidney disease; I12.9 Hypertensive chronic kidney disease with stage 1 through stage 4 chronic kidney disease, or unspecified chronic kidney disease; N18.2 Chronic kidney disease, stage 2 (mild); Z86.73 Personal history of transient ischemic attack (TIA), and cerebral infarction without residual deficits; Z88.0 Allergy status to penicillin; Z88.2 Allergy status to sulfonamides; Z88.5 Allergy status to narcotic agent; Z88.8 Allergy status to other drugs, medicaments and biological substances; Z79.899 Other long term (current) drug therapy; Z79.4 Long term (current) use of insulin; W18.39XA Other fall on same level, initial encounter
CPT/HCPCS: 12011; 70450; 82947; 99283-25

== ENCOUNTER → 2020-04-11 | Outpatient (CLI) | payer MEDICARE, OTHER ==
[2020-04-11 09:47] LABS: Hematocrit 43.9 % (33.0-51.0); Hemoglobin 14.6 g/dL (11.5-16.0); Mean Corpuscular HGB 30.4 pg (26.0-34.0); Mean Corpuscular HGB Conc 33.3 g/dL (31.5-36.5); Mean Corpuscular Volume 92 fL (80-100); Mean Platelet Volume 11.5 fL (9.1-12.4); Platelet Count 269 K/mm3 (150-400); RDW Coefficient Variation 12.9 % (11.7-14.2); RDW Standard Deviation 43.1 fL (35.1-46.3); White Blood Cell Count 7.59 K/mm3 (4.00-11.30)
[2020-04-11 10:08] LABS: Bun/Creatinine Ratio 24.8 (12.0-20.0); Calcium, Blood 9.1 mg/dL (8.5-10.1); Creatinine, Blood 1.05 mg/dL (0.40-1.00); Potassium, Blood 3.4 mmol/L (3.5-5.5)
== END | disposition home or self-care (01) ==
LOC: LAB RH 08:19
PROVIDERS: Family Medicine
DX: I48.91 Unspecified atrial fibrillation (principal); L12.9 Pemphigoid, unspecified; E11.9 Type 2 diabetes mellitus without complications
CPT/HCPCS: 80048; 83036; 85027

== ENCOUNTER → 2020-08-23 | Outpatient (CLI) | payer MEDICARE, OTHER ==
[2020-08-23 19:49] LABS: Hematocrit 44.1 % (33.0-51.0); Hemoglobin 14.7 g/dL (11.5-16.0); Mean Corpuscular HGB Conc 33.3 g/dL (31.5-36.5); Mean Corpuscular Volume 93 fL (80-100); Mean Platelet Volume 11.5 fL (9.1-12.4); Platelet Count 254 K/mm3 (150-400); RDW Coefficient Variation 12.7 % (11.7-14.2); RDW Standard Deviation 43.5 fL (35.1-46.3); Red Blood Cell Count 4.74 M/mm3 (3.80-5.20); White Blood Cell Count 8.05 K/mm3 (4.00-11.30)
[2020-08-23 20:06] LABS: Bun/Creatinine Ratio 23.3 (12.0-20.0); Calcium, Blood 8.8 mg/dL (8.5-10.1); Creatinine, Blood 1.03 mg/dL (0.40-1.00); Potassium, Blood 3.7 mmol/L (3.5-5.5)
== END | disposition home or self-care (01) ==
LOC: EDSTATUS 09:48 → LAB RH 19:05
PROVIDERS: Family Medicine
DX: D64.9 Anemia, unspecified (principal); I10 Essential (primary) hypertension; E11.9 Type 2 diabetes mellitus without complications
CPT/HCPCS: 80048; 83036; 85027